=== PATIENT | male | born 1950 | race Caucasian/White ===

== ENCOUNTER 2017-07-16 03:43 | Inpatient (IN) | payer MEDICARE, BC ==
[~2017-07-16] VITALS: Ht 172.7 cm; Wt 116.1 kg
[2017-07-16] VITALS (8 sets, daily range): BP systolic 123–153; BP diastolic 73–95
[2017-07-16] MEDS ORDERED: ABILIFY10 MG ORAL (03:51)
[2017-07-16] MEDS ORDERED: ALBUTEROL2.5 MG/3 M INH (03:51)
[2017-07-16] MEDS ORDERED: RISPERDAL0.5 MG ORAL (03:51)
[2017-07-16] MEDS ORDERED: SINGULAIR10 MG ORAL (03:51)
[2017-07-16] MEDS ORDERED: LAMICTAL100 MG ORAL (03:51)
[2017-07-16] MEDS ORDERED: ALPRAZOLAM1 MG ORAL (03:51)
[2017-07-16] MEDS ORDERED: CYMBALTA60 MG ORAL (03:51)
--- NOTE | 2017-07-16 03:51 | Emergency Room Report ---
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 that yesterday the patient was coughing heavily And over the night he appeared to have worsening of his aspiration A note regarding fever patient appears to be somewhat bed bound Allergies: Coded Allergies: No Known Allergies (Unverified , 07/16/17) Patient History Past Medical History: see triage record Pertinent Family History: none Reviewed Nursing Documentation: PMH: Agreed, PSxH: Agreed Nursing Documentation-PMH Hx Asthma: Yes Review of Systems All Other Systems: negative except mentioned in HPI Physical Exam Vital Signs Date Time Temp Pulse Resp B/P (MAP) Pulse Ox O2 Delivery O2 Flow Rate FiO2 07/16/17 03:43 97.9 104 35 152/82 94 Room Air Sp02 EP Interpretation: reviewed, normal General Appearance: mild distress - Appears short of breath Head: normocephalic, atraumatic Eyes: bilateral eye PERRL, bilateral eye EOMI ENT: hearing grossly normal, normal pharynx, TMs + canals normal, uvula midline Neck: full range of motion, supple, no meningismus, no bony tend Respiratory: no retraction, no accessory muscle use, wheezing - Audible wheezes , rhonchi, patient appears mildly tachypneic I cannot appreciate obvious retractions Cardiovascular #1: no gallop, no JVD, no murmur, tachycardia Gastrointestinal: normal bowel sounds, non tender, soft, no mass, no organomegaly, non-distended, no guarding, no hernia, no pulsatile mass, no rebound Genitourinary: no CVA tenderness Musculoskeletal: other - No obvious focal deficit in the upper extremities Neurologic: oriented x3, responsive, 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, sensory intact Psychiatric: mood/affect normal Skin: warm/dry, palpation normal Lymphatic: normal inspection, no adenopathy Medical Decision Making Diagnostic Impression: Primary Impression: Respiratory distress Additional Impression: Dyspnea ER Course Patient is a fairly complex patient with multiple differential to consideration including but not limited to cardiac cardiopulmonary and vascular emergencies Patient's blood work and imaging did not reveal any obvious acute pathology However patient shows signs and symptoms of possible COPD Patient remains hypoxic on room air and requires further inpatient care Labs Test 07/16/17 03:58 07/16/17 04:40 07/16/17 06:30 07/18/17 06:45 White Blood Count 11.1 K/UL (4.8-10.8) 15.3 K/UL (4.8-10.8) Red Blood Count 4.76 M/UL (4.70-6.10) 4.16 M/UL (4.70-6.10) Hemoglobin 14.5 G/DL (14.2-18.0) 12.6 G/DL (14.2-18.0) Hematocrit 43.3 % (42.0-52.0) 38.3 % (42.0-52.0) Mean Corpuscular Volume 91 FL (80-99) 92 FL (80-99) Mean Corpuscular Hemoglobin 30.5 PG (27.0-31.0) 30.2 PG (27.0-31.0) Mean Corpuscular Hemoglobin Concent 33.4 G/DL (32.0-36.0) 32.8 G/DL (32.0-36.0) Red Cell Distribution Width 13.6 % (11.6-14.8) 14.1 % (11.6-14.8) Platelet Count 195 K/UL (150-450) 212 K/UL (150-450) Mean Platelet Volume 8.3 FL (6.5-10.1) 7.8 FL (6.5-10.1) Neutrophils (%) (Auto) 67.7 % (45.0-75.0) % (45.0-75.0) Lymphocytes (%) (Auto) 23.4 % (20.0-45.0) % (20.0-45.0) Monocytes (%) (Auto) 5.8 % (1.0-10.0) % (1.0-10.0) Eosinophils (%) (Auto) 2.4 % (0.0-3.0) % (0.0-3.0) Basophils (%) (Auto) 0.7 % (0.0-2.0) % (0.0-2.0) Sodium Level 141 MMOL/L (136-145) 141 MMOL/L (136-145) Potassium Level 4.3 MMOL/L (3.5-5.1) 4.7 MMOL/L (3.5-5.1) Chloride Level 103 MMOL/L (98-107) 104 MMOL/L (98-107) Carbon Dioxide Level 35 MMOL/L (21-32) 32 MMOL/L (21-32) Anion Gap 3 mmol/L (5-15) 5 mmol/L (5-15) Blood Urea Nitrogen 26 mg/dL (7-18) 27 mg/dL (7-18) Creatinine 1.5 MG/DL (0.55-1.30) 1.4 MG/DL (0.55-1.30) Estimat Glomerular Filtration Rate 46.8 mL/min (>60) 50.7 mL/min (>60) Glucose Level 138 MG/DL (74-106) 151 MG/DL (74-106) Lactic Acid Level 2.40 mmol/L (0.66-2.22) 2.70 mmol/L (0.66-2.22) Calcium Level 8.8 MG/DL (8.5-10.1) 8.4 MG/DL (8.5-10.1) Total Bilirubin 0.3 MG/DL (0.2-1.0) 0.2 MG/DL (0.2-1.0) Aspartate Amino Transf (AST/SGOT) 23 U/L (15-37) 23 U/L (15-37) Alanine Aminotransferase (ALT/SGPT) 63 U/L (12-78) 67 U/L (12-78) Alkaline Phosphatase 74 U/L (46-116) 60 U/L (46-116) Total Creatine Kinase 180 U/L (26-308) Creatine Kinase MB 2.8 NG/ML (0.0-3.6) Creatine Kinase MB Relative Index 1.5 Troponin I 0.000 ng/mL (0.000-0.056) Pro-B-Type Natriuretic Peptide 35 pg/mL (0-125) Total Protein 7.0 G/DL (6.4-8.2) 6.8 G/DL (6.4-8.2) Albumin 3.6 G/DL (3.4-5.0) 3.5 G/DL (3.4-5.0) Globulin 3.4 g/dL 3.3 g/dL Albumin/Globulin Ratio 1.1 (1.0-2.7) 1.1 (1.0-2.7) Lipase 172 U/L (73-393) Urine Color Pale yellow Urine Appearance Clear Urine pH 5 (4.5-8.0) Urine Specific [place] 1.020 (1.005-1.035) Urine Protein Negative (NEGATIVE) Urine Glucose (UA) Negative (NEGATIVE) Urine Ketones Negative (NEGATIVE) Urine Occult Blood 2+ (NEGATIVE) Urine Nitrite Negative (NEGATIVE) Urine Bilirubin Negative (NEGATIVE) Urine Urobilinogen Normal MG/DL (0.0-1.0) Urine Leukocyte Esterase 1+ (NEGATIVE) Urine RBC 15-20 /HPF (0 - 0) Urine WBC 0-2 /HPF (0 - 0) Urine Squamous Epithelial Cells Few /LPF (NONE/OCC) Urine Bacteria Few /HPF (NONE) Differential Total Cells Counted 100 Neutrophils % (Manual) 88 % (45-75) Lymphocytes % (Manual) 7 % (20-45) Monocytes % (Manual) 5 % (1-10) Eosinophils % (Manual) 0 % (0-3) Basophils % (Manual) 0 % (0-2) Band Neutrophils 0 % (0-8) Platelet Estimate Adequate Platelet Morphology Normal Red Blood Cell Morphology Normal Erythrocyte Sedimentation Rate 15 MM/HR (0-20) Phosphorus Level 4.1 MG/DL (2.5-4.9) Magnesium Level 2.4 MG/DL (1.8-2.4) Rhythm Strip Diag. Results EP Interpretation: yes Rate: 88 Rhythm: NSR, no PVC's, no ectopy Chest X-Ray Diagnostic Results Chest X-Ray Diagnostic Results : Chest X-Ray Ordered: Yes # of Views/Limited/Complete: 1 View Indication: Shortness of Breath Interpretation: no consolidation, no effusion, no pneumothorax, no acute cardiopulmonary disease Impression: No acute disease Electronically Signed by: Hansa Rodriguez DO Last Vital Signs Date Time Temp Pulse Resp B/P (MAP) Pulse Ox O2 Delivery O2 Flow Rate FiO2 07/16/17 03:43 97.9 104 35 152/82 94 Room Air Status: improved Disposition: ADMITTED INPATIENT Condition: Serious HANSA RODRIGUEZ D.O. Jul 16, 2017 03:51
[2017-07-16] MEDS ORDERED: Albuterol ud Inhalation HHN ONE (04:00)
[2017-07-16] MEDS ORDERED: Solu-MEDROL 125mg Inj IVP ONE (04:00)
[2017-07-16] MEDS ORDERED: Ipratropium 0.02% Inh Soln 2.5ml UD HHN ONE (04:00)
[2017-07-16] MEDS ORDERED: Sodium Chloride 500ML 500 ML IV ONE (04:00)
[2017-07-16 04:04] LABS: BASOPHILS % (AUTO) 0.7 % (0.0-2.0); EOSINOPHILS % (AUTO) 2.4 % (0.0-3.0); HEMATOCRIT 43.3 % (42.0-52.0); HEMOGLOBIN 14.5 G/DL (14.2-18.0); LYMPHOCYTES % (AUTO) 23.4 % (20.0-45.0); MEAN CORPUSCULAR VOLUME 91 FL (80-99); MONOCYTES % (AUTO) 5.8 % (1.0-10.0); NEUTROPHILS % (AUTO) 67.7 % (45.0-75.0); PLATELET COUNT 195 K/UL (150-450); RED BLOOD COUNT 4.76 M/UL (4.70-6.10); RED CELL DISTRIBUTION WIDTH 13.6 % (11.6-14.8); WHITE BLOOD COUNT 11.1 K/UL (4.8-10.8)
[2017-07-16 04:15] LABS: ANION GAP 3 mmol/L (5-15); BLOOD UREA NITROGEN 26 mg/dL (7-18); CALCIUM 8.8 MG/DL (8.5-10.1); CARBON DIOXIDE 35 MMOL/L (21-32); CHLORIDE 103 MMOL/L (98-107); CREATININE 1.5 MG/DL (0.55-1.30); POTASSIUM 4.3 MMOL/L (3.5-5.1); SODIUM 141 MMOL/L (136-145)
[2017-07-16 04:30] LABS: ALANINE AMINOTRANSFERASE 63 U/L (12-78); ALBUMIN 3.6 G/DL (3.4-5.0); ALBUMIN/GLOBULIN RATIO 1.1 (1.0-2.7); ALKALINE PHOSPHATASE 74 U/L (46-116); ASPARTATE AMINO TRANSFERASE 23 U/L (15-37); BILIRUBIN,TOTAL 0.3 MG/DL (0.2-1.0); CKMB 2.8 NG/ML (0.0-3.6); CREATINE KINASE 180 U/L (26-308)
[2017-07-16 05:18] LABS: APPEARANCE,URINE CLEAR; BILIRUBIN, URINE NEGATIVE (NEGATIVE); COLOR,URINE PALE YELLOW; GLUCOSE, URINE (UA) NEGATIVE (NEGATIVE); KETONES,URINE NEGATIVE (NEGATIVE); LEUKOCYTE ESTERASE ,URINE 1+ (NEGATIVE); NITRITE,URINE NEGATIVE (NEGATIVE); PH,URINE 5 (4.5-8.0); PROTEIN,URINE NEGATIVE (NEGATIVE); UROBILINOGEN,URINE NORMAL MG/DL (0.0-1.0)
[2017-07-16] MEDS ORDERED: Nitroglycerin Subl 0.4mg tab SL PRN (06:30)
[2017-07-16] MEDS ORDERED: Morphine Sulfate 2mg/ml Inj IVP PRN (06:30)
[2017-07-16] MEDS ORDERED: Promethazine/Codeine 5ml UD ORAL PRN (06:30)
[2017-07-16] MEDS ORDERED: LORazepam Inj 2mg/ml 1ml IV PRN (06:30)
[2017-07-16] MEDS ORDERED: Ketorolac 30mg Inj IV PRN (06:30)
[2017-07-16] MEDS: DULoxetine 30mg cap ORAL SCH (08:50)
[2017-07-16] MEDS: ARIPiprazole 10mg tab ORAL SCH (08:50)
[2017-07-16] MEDS: Theophylline ER 100mg ORAL SCH ×2 (08:50→21:10)
[2017-07-16] MEDS: Heparin 5000 units/ml inj SUBQ SCH ×2 (08:52→21:15)
[2017-07-16] MEDS: Solu-MEDROL 125mg Inj IV SCH ×2 (12:24→17:37)
[2017-07-16] MEDS: Piperacillin/Tazobactam 3.375 GM in D5W 55 ML IVPB SCH ×2 (13:53→22:30)
--- NOTE | 2017-07-16 14:58 | History and Physical ---
History of Present Illness General Date patient seen: Jul 16, 2017 Reason for Hospitalization: Dyspnea/Respdistress Present Illness HPI 67 year old male with hx of asthma, brain surgery, morbid obesity bed bound with recent hospitalization at [facility] presented to ER with complaints of shortness of breath. No reports of fever or chills. Pt has productive cough. His cxr was negative in ER. He is admitted for exacerbation of asthma. Allergies: Coded Allergies: No Known Allergies (Unverified , 07/16/17) Medication History Scheduled Alprazolam* (Xanax*), 1 MG ORAL BID, (Reported) Aripiprazole* (Abilify*), 10 MG ORAL DAILY, (Reported) Duloxetine Hcl* (Cymbalta*), 60 MG ORAL DAILY, (Reported) Lamotrigine* (Lamictal*), 100 MG ORAL BID, (Reported) Montelukast Sodium* (Singulair*), 10 MG ORAL DAILY, (Reported) Risperidone* (Risperdal*), 0.5 MG ORAL BEDTIME, (Reported) Scheduled PRN Albuterol Sulfate* (Albuterol Sulfate Hhn*), 3 ML INH THREE TIMES A DAY PRN for WHEEZING, (Reported) Patient History Healthcare decision maker Resuscitation status Full Code Advanced Directive on File No Past Medical/Surgical History Past Medical/Surgical History: (1) History of asthma (2) Morbid obesity Review of Systems Respiratory: Reports: shortness of breath, sputum Physical Exam General Appearance: WD/WN Lines, tubes and drains: peripheral HEENT: normocephalic, atraumatic Neck: non-tender, supple Respiratory/Chest: chest wall non-tender, normal breath sounds, decreased breath sounds Cardiovascular/Chest: normal peripheral pulses Abdomen: normal bowel sounds, non tender Genitourinary/Rectal: normal genital exam Extremities: normal range of motion Last 24 Hour Vital Signs Date Time Temp Pulse Resp B/P (MAP) Pulse Ox O2 Delivery O2 Flow Rate FiO2 07/16/17 12:00 97.8 98 18 135/74 90 Simple Mask 4.0 07/16/17 12:00 102 07/16/17 08:00 100 07/16/17 08:00 97.6 100 19 139/95 07/16/17 06:47 97.9 101 22 147/86 Simple Mask 07/16/17 06:33 97.9 96 30 143/82 99 Simple Mask 4.0 07/16/17 06:18 97.9 96 30 143/82 99 Simple Mask 4.0 07/16/17 05:21 97.9 99 31 147/78 97 Simple Mask 4.0 07/16/17 04:22 98 24 95 Room Air 07/16/17 04:09 96 30 Room Air 07/16/17 04:09 97.9 97 30 153/73 97 Simple Mask 6.0 07/16/17 04:00 97 20 94 Room Air 07/16/17 04:00 97 20 Room Air 07/16/17 03:43 97.9 104 35 152/82 94 Room Air Laboratory Tests Test 07/16/17 03:58 07/16/17 04:40 07/16/17 06:30 White Blood Count 11.1 K/UL (4.8-10.8) H Red Blood Count 4.76 M/UL (4.70-6.10) Hemoglobin 14.5 G/DL (14.2-18.0) Hematocrit 43.3 % (42.0-52.0) Mean Corpuscular Volume 91 FL (80-99) Mean Corpuscular Hemoglobin 30.5 PG (27.0-31.0) Mean Corpuscular Hemoglobin Concent 33.4 G/DL (32.0-36.0) Red Cell Distribution Width 13.6 % (11.6-14.8) Platelet Count 195 K/UL (150-450) Mean Platelet Volume 8.3 FL (6.5-10.1) Neutrophils (%) (Auto) 67.7 % (45.0-75.0) Lymphocytes (%) (Auto) 23.4 % (20.0-45.0) Monocytes (%) (Auto) 5.8 % (1.0-10.0) Eosinophils (%) (Auto) 2.4 % (0.0-3.0) Basophils (%) (Auto) 0.7 % (0.0-2.0) Sodium Level 141 MMOL/L (136-145) Potassium Level 4.3 MMOL/L (3.5-5.1) Chloride Level 103 MMOL/L (98-107) Carbon Dioxide Level 35 MMOL/L (21-32) H Anion Gap 3 mmol/L (5-15) L Blood Urea Nitrogen 26 mg/dL (7-18) H Creatinine 1.5 MG/DL (0.55-1.30) H Estimat Glomerular Filtration Rate 46.8 mL/min (>60) Glucose Level 138 MG/DL (74-106) H Lactic Acid Level 2.40 mmol/L (0.66-2.22) H 2.70 mmol/L (0.66-2.22) H Calcium Level 8.8 MG/DL (8.5-10.1) Total Bilirubin 0.3 MG/DL (0.2-1.0) Aspartate Amino Transf (AST/SGOT) 23 U/L (15-37) Alanine Aminotransferase (ALT/SGPT) 63 U/L (12-78) Alkaline Phosphatase 74 U/L (46-116) Total Creatine Kinase 180 U/L (26-308) Creatine Kinase MB 2.8 NG/ML (0.0-3.6) Creatine Kinase MB Relative Index 1.5 Troponin I 0.000 ng/mL (0.000-0.056) Pro-B-Type Natriuretic Peptide 35 pg/mL (0-125) Total Protein 7.0 G/DL (6.4-8.2) Albumin 3.6 G/DL (3.4-5.0) Globulin 3.4 g/dL Albumin/Globulin Ratio 1.1 (1.0-2.7) Lipase 172 U/L (73-393) Urine Color Pale yellow Urine Appearance Clear Urine pH 5 (4.5-8.0) Urine Specific [place] 1.020 (1.005-1.035) Urine Protein Negative (NEGATIVE) Urine Glucose (UA) Negative (NEGATIVE) Urine Ketones Negative (NEGATIVE) Urine Occult Blood 2+ (NEGATIVE) H Urine Nitrite Negative (NEGATIVE) Urine Bilirubin Negative (NEGATIVE) Urine Urobilinogen Normal MG/DL (0.0-1.0) Urine Leukocyte Esterase 1+ (NEGATIVE) H Urine RBC 15-20 /HPF (0 - 0) H Urine WBC 0-2 /HPF (0 - 0) Urine Squamous Epithelial Cells Few /LPF (NONE/OCC) Urine Bacteria Few /HPF (NONE) Microbiology Date/Time Source Procedure Growth Status 07/16/17 08:58 Sputum Gram Stain - Final Resulted 07/16/17 08:58 Sputum Sputum Culture Pending Resulted Height (Feet): 5 Height (Inches): 8.00 Weight (Pounds): 256 Medications Current Medications Medications (Trade) Dose Ordered Sig/Hi Route PRN Reason Start Time Stop Time Status Last Admin Dose Admin Albuterol/ Ipratropium (Albuterol/ Ipratropium) 3 ml EVERY 4 HOURS PRN HHN dyspnea 07/16/17 06:30 07/21/17 06:29 Aripiprazole (Abilify) 10 mg DAILY ORAL 07/16/17 09:00 08/15/17 08:59 07/16/17 08:50 Dextrose (Dextrose 50%) STAT PRN IV Hypoglycemia 07/16/17 06:30 08/15/17 06:29 Duloxetine HCl (Cymbalta) 60 mg DAILY ORAL 07/16/17 09:00 08/15/17 08:59 07/16/17 08:50 Heparin Sodium (Porcine) (Heparin 5000 units/ml) 5,000 units EVERY 12 HOURS SUBQ 07/16/17 09:00 08/15/17 08:59 07/16/17 08:52 Ketorolac Tromethamine (Toradol 30mg) 30 mg EVERY 8 HOURS PRN IV moderate pain 4-6 07/16/17 06:30 07/21/17 06:29 Lamotrigine (LaMICtal) 100 mg BID ORAL 07/16/17 09:00 08/15/17 08:59 07/16/17 08:50 Lorazepam (Ativan 2mg/ml 1ml) 0.5 mg Q4H PRN IV For Anxiety 07/16/17 06:30 07/23/17 06:29 Methylprednisolone Sodium Succinate (Solu-MEDROL) 60 mg EVERY 6 HOURS IV 07/16/17 12:00 08/15/17 11:59 07/16/17 12:24 Morphine Sulfate (Morphine Sulfate) 2 mg EVERY 4 HOURS PRN IVP severe pain 7-10 07/16/17 06:30 07/23/17 06:29 Nitroglycerin (Ntg) 0.4 mg Q5M X 3 DOSES PRN SL Prn Chest Pain 07/16/17 06:30 08/15/17 06:29 Ondansetron HCl (Zofran) 4 mg Q6H PRN IVP Nausea & Vomiting 07/16/17 06:30 1/11/18 06:29 Piperacillin Sod/ Tazobactam Sod 3.375 gm/Dextrose 55 ml @ 13.75 mls/ hr EVERY 8 HOURS IVPB 07/16/17 14:00 07/21/17 13:59 07/16/17 13:53 Promethazine HCl/ Codeine (Phenergan with Codeine) 5 ml EVERY 6 HOURS PRN ORAL cough 07/16/17 06:30 08/15/17 06:29 Risperidone (RisperDAL) 0.5 mg BEDTIME ORAL 07/16/17 21:00 08/15/17 20:59 Temazepam (Restoril) 15 mg HSPRN PRN ORAL Insomnia 07/16/17 06:30 07/23/17 06:29 Theophylline (Maik-Dur) 100 mg EVERY 12 HOURS ORAL 07/16/17 09:00 08/15/17 08:59 07/16/17 08:50 Assessment/Plan Problem List: (1) Acute asthma exacerbation ICD Codes: J45.901 - Unspecified asthma with (acute) exacerbation SNOMED: 445195464 (2) History of craniotomy ICD Codes: Z98.890 - Other specified postprocedural states SNOMED: 20959061, 815522279 (3) Morbid obesity ICD Codes: E66.01 - Morbid (severe) obesity due to excess calories SNOMED: 049451386, [id number] Assessment/Plan IV steroids respiratory treatment check sputum titrate fio2 renal w/u neuro evaluation АНДРЕЙ RUIZ Jul 16, 2017 14:58
--- NOTE | 2017-07-16 16:56 | Consultation ---
Consult Note Consult Note [id number] ELZA ROJAS M.D. Jul 16, 2017 16:56
[2017-07-16] MEDS: Albuterol/Ipratropium 3ml neb HHN PRN (17:13)
[2017-07-16] MEDS: Azithromycin 500 MG in D5W 275 ML IV SCH (17:37)
[2017-07-17] VITALS: BP 146/94
[2017-07-17] MEDS: Solu-MEDROL 125mg Inj IV SCH ×4 (00:12→18:25)
[2017-07-17] MEDS: Albuterol/Ipratropium 3ml neb HHN PRN ×2 (00:20→13:45)
[2017-07-17 04:00] VITALS: BP 131/80
--- NOTE | 2017-07-17 05:15 | Consultation ---
DATE OF CONSULTATION: 07/16/2017 NEUROLOGICAL CONSULTATION CONSULTING PHYSICIAN: Tyree Mendiola M.D. REQUESTING PHYSICIAN: Cuate Walker M.D. HISTORY OF PRESENT ILLNESS: This is a 67-year-old gentleman seen in neurological consultation to evaluate progressive gait abnormality, urinary incontinence, recently diagnosed with a "hydrocephalus." The patient has now presented with shortness of breath, apparently only recently he had assessment at [facility] for asthma and reactive airway disease. He developed shortness of breath, but also heavy coughing and difficulty breathing. His admission vital signs included blood pressure 152/82 and temperature 97.9. His lab work included normal CBC study with WBC of 11.4. Chemistry panel was abnormal with BUN of 26, creatinine 1.5, and glucose 138, but elevated lactic acid of 2.40. Normal troponin. Following admission until present, there was no paroxysmal event noted. PAST MEDICAL HISTORY: The patient has a history of morbid obesity, history of psychiatric disorder, history of COPD, and decreased hearing mostly on the left. MEDICATIONS: The patient's treatment prior to admission included Xanax, Abilify, Cymbalta, Lamictal, Singulair, Risperdal, and albuterol as necessary. SOCIAL HISTORY: He lives alone. He is a retired businessman. No alcohol. No drug abuse. FAMILY HISTORY: Noncontributory. REVIEW OF SYMPTOMS: Increasing difficulty ambulation, frequent falls now using a cane, episodes of urinary incontinence, but no memory issues. Recently seen by a neurologist at [facility] and was diagnosed with what seems normal pressure hydrocephalus and "surgery was offered." PHYSICAL EXAMINATION: GENERAL: The patient is morbidly obese. VITAL SIGNS: Blood pressure 132/80 and respirations 18. HEENT: Head, normocephalic. There is no evidence of trauma. Eyes, ears, and throat are clear. NECK: Supple. No meningeal signs. MUSCULOSKELETAL: Unremarkable. There is no deformities. Peripheral pulses 1+ symmetric. MENTAL STATUS: The patient is alert and oriented x3. His speech is fluent. Language is intact. There is no aphasia. No apraxia. Cognitive function is normal. CRANIAL NERVE II: Pupils both responding to light and accommodation. Extraocular movements full range. CRANIAL NERVE V: Normal corneal responses. CRANIAL NERVE VII: No facial asymmetry. CRANIAL NERVE VIII: Normal hearing. CRANIAL NERVES IX THROUGH XII: Within normal limits. MOTOR EXAMINATION: Normal muscle tone. Strength 5/5 in all extremities. No involuntary movement. Deep tendon reflexes 1+ symmetric with downgoing toes on both sides. SENSORY EXAMINATION: Normal to pinprick and light touch. Gait not tested, but reported unsteady gait. IMPRESSION: 1. Probably normal pressure hydrocephalus. 2. Chronic psychiatric disorder. 3. Morbid obesity, rule out obstructive sleep apnea. 4. Bronchial asthma. RECOMMENDATIONS: Review previous records from [facility], the patient is in the process of seeing Neurosurgery for probable ventriculoperitoneal shunting. Sleep disorder should be strongly suspected and sleep studies would be helpful. The patient is on multiple psychiatric treatments, which may need adjustment. The patient to be seen by psychiatry for psychiatry followup. The patient to continue with respiratory support. Thank you for allowing me to see this interesting patient in neurological consultation. Tyree Mendiola M.D. DR: TY JOB#: [id number] CC:
--- NOTE | 2017-07-17 05:15 | Consultation ---
DATE OF CONSULTATION: 07/16/2017 INFECTIOUS DISEASES CONSULTATION CONSULTING PHYSICIAN: Minor Cool M.D. REQUESTING PHYSICIAN: Cuate Walker M.D. REASON FOR CONSULTATION: Evaluation of the patient for pneumonia and antibiotic management. HISTORY OF PRESENT ILLNESS: The patient is a 67-year-old male with multiple medical problems including history of asthma and reactive airway disease, who was admitted to this medical center due to shortness of breath and cough that started three days ago. The patient has also been complaining of nasal congestion recently. The patient was admitted with the impression of pneumonia and asthma exacerbation. Infectious Diseases consultation has been requested for further evaluation of the patient and antibiotic management. PAST MEDICAL HISTORY: 1. Asthma. 2. Bipolar disorder. 3. Depression. MEDICATIONS: Zosyn and Solu-Medrol. The patient received one dose of Levaquin. ALLERGIES: No known drug allergies. SOCIAL HISTORY: No history of smoking. FAMILY HISTORY: Noncontributory. REVIEW OF SYSTEMS: HEENT: No recent change in vision or hearing. PULMONARY: As mentioned above. CARDIOVASCULAR: No chest pain or palpitations. GASTROINTESTINAL/ABDOMEN: No nausea or vomiting. GENITOURINARY: No dysuria. PHYSICAL EXAMINATION: VITAL SIGNS: Temperature 97.8, blood pressure 134/74, pulse 86, and respiratory rate 18. HEENT: No pale conjunctivae. No icterus. NECK: No lymphadenopathy. CHEST: Mild wheezes and lungs. HEART: S1 and S2. ABDOMEN: Soft and nontender. EXTREMITIES: No cyanosis. NEUROLOGIC: Awake. LABORATORY AND DIAGNOSTIC DATA: White blood cells 11.1, hemoglobin 14, and platelets 195,000. UA shows 15 to 20 red blood cells and 0 to 2 white blood cells. BUN 26 and creatinine 1.5. Chest x-ray is pending. ASSESSMENT: The patient is a 67-year-old male with: 1. Asthma exacerbation. 2. Possible pneumonia. 3. Viral upper respiratory tract infection, rule out influenza. PLAN: 1. We will continue the patient on Zosyn, add Zithromax. 2. We will continue the patient on Solu-Medrol. 3. Rapid influenza test. 4. Blood culture. 5. Sputum culture. 6. Monitor chest x-ray. 7. Monitor CBC. 8. Based on the patient's clinical course and labs, we will do further recommendations. Thank you, Dr. Walker, for allowing me to participate in the care of this patient. I will follow the patient with you during this hospitalization. Minor Cool M.D. DR: YAZMIN JOB#: [id number] CC:
[2017-07-17] MEDS: Piperacillin/Tazobactam 3.375 GM in D5W 55 ML IVPB SCH ×3 (05:54→21:56)
[2017-07-17 08:00] VITALS: BP 135/75
[2017-07-17] MEDS: ARIPiprazole 10mg tab ORAL SCH (08:18)
[2017-07-17] MEDS: DULoxetine 30mg cap ORAL SCH (08:18)
[2017-07-17] MEDS: Theophylline ER 100mg ORAL SCH ×2 (08:18→21:55)
[2017-07-17] MEDS: Heparin 5000 units/ml inj SUBQ SCH ×2 (08:19→21:56)
--- NOTE | 2017-07-17 10:07 | Infectious Diseases Prog Note ---
Assessment/Plan Assessment/Plan ASSESSMENT: The patient is a 67-year-old male with: Asthma exacerbation Possible pneumonia. Viral upper respiratory tract infection, Rapid influenza test: Neg Asthma. Bipolar disorder. Depression. PLAN: continue the patient on Zosyn, add Zithromax d# 2 on Solu-Medrol Blood culture. Sputum culture. Monitor chest x-ray. Monitor CBC. Subjective Allergies: Coded Allergies: No Known Allergies (Unverified , 07/16/17) Subjective Afebrile Objective Vital Signs Last 24 Hour Vital Signs Date Time Temp Pulse Resp B/P (MAP) Pulse Ox O2 Delivery O2 Flow Rate FiO2 07/17/17 08:07 92 Nasal Cannula 3.0 32 07/17/17 08:06 Nasal Cannula 3.0 32 07/17/17 08:00 96.4 69 19 135/75 Room Air 07/17/17 08:00 96 Nasal Cannula 2.0 07/17/17 04:00 97.0 90 20 131/80 97 Simple Mask 07/17/17 04:00 88 07/17/17 00:32 97 24 97 Simple Mask 4.0 36 07/17/17 00:20 84 25 93 Simple Mask 4.0 36 07/17/17 00:00 97.9 89 22 146/94 96 Simple Mask 4.0 07/17/17 00:00 90 07/16/17 20:00 97.0 103 20 123/74 97 Simple Mask 4.0 07/16/17 20:00 97 07/16/17 17:23 99 22 96 Simple Mask 4.0 36 07/16/17 17:18 98 24 Simple Mask 4.0 36 07/16/17 17:16 98 24 95 Simple Mask 4.0 36 07/16/17 16:00 100 07/16/17 16:00 97.6 80 19 139/87 Simple Mask 4.0 07/16/17 12:00 97.8 98 18 135/74 90 Simple Mask 4.0 07/16/17 12:00 102 Height (Feet): 5 Height (Inches): 8.00 Weight (Pounds): 256 Respiratory/Chest: normal breath sounds Cardiovascular: regular rhythm, regularly irregular Abdomen: non distended Microbiology Date/Time Source Procedure Growth Status 07/16/17 17:05 Nasopharynx Influenza Types A,B Antigen (PIERRE) - Final Complete 07/16/17 08:58 Sputum Gram Stain - Final Resulted 07/16/17 08:58 Sputum Sputum Culture Pending Resulted Current Medications Medications (Trade) Dose Ordered Sig/Hi Route PRN Reason Start Time Stop Time Status Last Admin Dose Admin Albuterol/ Ipratropium (Albuterol/ Ipratropium) 3 ml EVERY 4 HOURS PRN HHN dyspnea 07/16/17 06:30 07/21/17 06:29 07/17/17 00:20 Aripiprazole (Abilify) 10 mg DAILY ORAL 07/16/17 09:00 08/15/17 08:59 07/17/17 08:18 Azithromycin 500 mg/Dextrose 275 ml @ 275 mls/hr Q24HRS IV 07/16/17 18:00 07/22/17 18:59 07/16/17 17:37 Dextrose (Dextrose 50%) STAT PRN IV Hypoglycemia 07/16/17 06:30 08/15/17 06:29 Duloxetine HCl (Cymbalta) 60 mg DAILY ORAL 07/16/17 09:00 08/15/17 08:59 07/17/17 08:18 Heparin Sodium (Porcine) (Heparin 5000 units/ml) 5,000 units EVERY 12 HOURS SUBQ 07/16/17 09:00 08/15/17 08:59 07/17/17 08:19 Ketorolac Tromethamine (Toradol 30mg) 30 mg EVERY 8 HOURS PRN IV moderate pain 4-6 07/16/17 06:30 07/21/17 06:29 Lamotrigine (LaMICtal) 100 mg BID ORAL 07/16/17 09:00 08/15/17 08:59 07/17/17 08:18 Lorazepam (Ativan 2mg/ml 1ml) 0.5 mg Q4H PRN IV For Anxiety 07/16/17 06:30 07/23/17 06:29 Methylprednisolone Sodium Succinate (Solu-MEDROL) 60 mg EVERY 6 HOURS IV 07/16/17 12:00 08/15/17 11:59 07/17/17 05:54 Morphine Sulfate (Morphine Sulfate) 2 mg EVERY 4 HOURS PRN IVP severe pain 7-10 07/16/17 06:30 07/23/17 06:29 Nitroglycerin (Ntg) 0.4 mg Q5M X 3 DOSES PRN SL Prn Chest Pain 07/16/17 06:30 08/15/17 06:29 Ondansetron HCl (Zofran) 4 mg Q6H PRN IVP Nausea & Vomiting 07/16/17 06:30 08/15/17 06:29 Piperacillin Sod/ Tazobactam Sod 3.375 gm/Dextrose 55 ml @ 13.75 mls/ hr EVERY 8 HOURS IVPB 07/16/17 14:00 07/21/17 13:59 07/17/17 05:54 Promethazine HCl/ Codeine (Phenergan with Codeine) 5 ml EVERY 6 HOURS PRN ORAL cough 07/16/17 06:30 08/15/17 06:29 Risperidone (RisperDAL) 0.5 mg BEDTIME ORAL 07/16/17 21:00 08/15/17 20:59 07/16/17 21:10 Temazepam (Restoril) 15 mg HSPRN PRN ORAL Insomnia 07/16/17 06:30 07/23/17 06:29 Theophylline (Maik-Dur) 100 mg EVERY 12 HOURS ORAL 07/16/17 09:00 08/15/17 08:59 07/17/17 08:18 ELZA ROJAS M.D. Jul 17, 2017 10:07
[2017-07-17 12:00] VITALS: BP 130/80
--- NOTE | 2017-07-17 13:47 | Pulmonology Progress Note ---
Assessment/Plan Problems: (1) Acute asthma exacerbation (2) History of craniotomy (3) Morbid obesity Assessment/Plan respiratory treatment prn check sputum taper steroids when less sob dvt prophylaxis. Subjective Interval Events: still episodes of short of breath Constitutional: Reports: no symptoms HEENT: Repors: no symptoms Respiratory: Reports: no symptoms Allergies: Coded Allergies: No Known Allergies (Unverified , 07/16/17) Objective Last 24 Hour Vital Signs Date Time Temp Pulse Resp B/P (MAP) Pulse Ox O2 Delivery O2 Flow Rate FiO2 07/17/17 12:00 97.8 80 19 130/80 Nasal Cannula 3.0 07/17/17 11:30 87 Room Air 07/17/17 08:07 92 Nasal Cannula 3.0 32 07/17/17 08:06 Nasal Cannula 3.0 32 07/17/17 08:00 101 07/17/17 08:00 96.4 69 19 135/75 Room Air 07/17/17 08:00 96 Nasal Cannula 2.0 07/17/17 04:00 97.0 90 20 131/80 97 Simple Mask 07/17/17 04:00 88 07/17/17 00:32 97 24 97 Simple Mask 4.0 36 07/17/17 00:20 84 25 93 Simple Mask 4.0 36 07/17/17 00:00 97.9 89 22 146/94 96 Simple Mask 4.0 07/17/17 00:00 90 07/16/17 20:00 97.0 103 20 123/74 97 Simple Mask 4.0 07/16/17 20:00 97 07/16/17 17:23 99 22 96 Simple Mask 4.0 36 07/16/17 17:18 98 24 Simple Mask 4.0 36 07/16/17 17:16 98 24 95 Simple Mask 4.0 36 07/16/17 16:00 100 07/16/17 16:00 97.6 80 19 139/87 Simple Mask 4.0 General Appearance: WD/WN HEENT: normocephalic, atraumatic Respiratory/Chest: chest wall non-tender, lungs clear, normal breath sounds Cardiovascular: normal peripheral pulses, normal rate Abdomen: normal bowel sounds, soft, non tender Genitourinary: normal external genitalia Skin: no rash Neurologic/Psychiatric: tree doctor II-XII grossly normal Microbiology Date/Time Source Procedure Growth Status 07/16/17 17:05 Nasopharynx Influenza Types A,B Antigen (PIERRE) - Final Complete 07/16/17 08:58 Sputum Gram Stain - Final Resulted 07/16/17 08:58 Sputum Sputum Culture Pending Resulted Current Medications Medications (Trade) Dose Ordered Sig/Hi Route PRN Reason Start Time Stop Time Status Last Admin Dose Admin Albuterol/ Ipratropium (Albuterol/ Ipratropium) 3 ml Q4H PRN HHN Shortness of Breath 07/17/17 13:45 07/22/17 13:44 Aripiprazole (Abilify) 10 mg DAILY ORAL 07/16/17 09:00 08/15/17 08:59 07/17/17 08:18 Azithromycin 500 mg/Dextrose 275 ml @ 275 mls/hr Q24HRS IV 07/16/17 18:00 07/22/17 18:59 07/16/17 17:37 Dextrose (Dextrose 50%) STAT PRN IV Hypoglycemia 07/16/17 06:30 08/15/17 06:29 Duloxetine HCl (Cymbalta) 60 mg DAILY ORAL 07/16/17 09:00 08/15/17 08:59 07/17/17 08:18 Heparin Sodium (Porcine) (Heparin 5000 units/ml) 5,000 units EVERY 12 HOURS SUBQ 07/16/17 09:00 08/15/17 08:59 07/17/17 08:19 Ketorolac Tromethamine (Toradol 30mg) 30 mg EVERY 8 HOURS PRN IV moderate pain 4-6 07/16/17 06:30 07/21/17 06:29 Lamotrigine (LaMICtal) 100 mg BID ORAL 07/16/17 09:00 08/15/17 08:59 07/17/17 08:18 Lorazepam (Ativan 2mg/ml 1ml) 0.5 mg Q4H PRN IV For Anxiety 07/16/17 06:30 07/23/17 06:29 Methylprednisolone Sodium Succinate (Solu-MEDROL) 60 mg EVERY 6 HOURS IV 07/16/17 12:00 08/15/17 11:59 07/17/17 13:02 Morphine Sulfate (Morphine Sulfate) 2 mg EVERY 4 HOURS PRN IVP severe pain 7-10 07/16/17 06:30 07/23/17 06:29 Nitroglycerin (Ntg) 0.4 mg Q5M X 3 DOSES PRN SL Prn Chest Pain 07/16/17 06:30 08/15/17 06:29 Ondansetron HCl (Zofran) 4 mg Q6H PRN IVP Nausea & Vomiting 07/16/17 06:30 08/15/17 06:29 Piperacillin Sod/ Tazobactam Sod 3.375 gm/Dextrose 55 ml @ 13.75 mls/ hr EVERY 8 HOURS IVPB 07/16/17 14:00 07/21/17 13:59 07/17/17 13:02 Promethazine HCl/ Codeine (Phenergan with Codeine) 5 ml EVERY 6 HOURS PRN ORAL cough 07/16/17 06:30 08/15/17 06:29 Risperidone (RisperDAL) 0.5 mg BEDTIME ORAL 07/16/17 21:00 08/15/17 20:59 07/16/17 21:10 Temazepam (Restoril) 15 mg HSPRN PRN ORAL Insomnia 07/16/17 06:30 07/23/17 06:29 Theophylline (Maik-Dur) 100 mg EVERY 12 HOURS ORAL 07/16/17 09:00 08/15/17 08:59 07/17/17 08:18 АНДРЕЙ RUIZ Jul 17, 2017 13:47
[2017-07-17 16:00] VITALS: BP 138/68
--- NOTE | 2017-07-17 17:14 | Consultation ---
History of Present Illness General Date patient seen: Jul 17, 2017 Time patient seen: 17:12 Chief Complaint: Dyspnea/Respdistress Referring physician: Dr. Knott (PCP) and Dr. Walker Reason for Consultation: med mgmt Present Illness HPI 69y/o male with pmh of NPH, severe KAYLEE, morbid obesity, asthma who presents with SOB. Pt recently hospitalized at [facility] for worsening LE weakness. He was evaluated by neurology. MRI brain demonstrated ventriculomegaly which appeared~ similar compared to previous examination. 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 MRIs of L,T,C spine were negative for any cord compression. LP was done on 07/04/17 and it revealed an opening pressure of 290mm H2O. Post LP, the pt's condition improved and neurosurgery was consulted and the decision was taken to insert a COOK CANDY shunt in a few weeks. Following discharge, pt states he did well initially but then developed recurrent SOB w/ cough productive of sputum. He has been admitted for asthma exacerbation. He has been receiving steroids, antibiotics and nebulizers with some improvement. He requests transfer to [facility] or discharge soon. Allergies: Coded Allergies: No Known Allergies (Unverified , 07/16/17) Medication History Scheduled Alprazolam* (Xanax*), 1 MG ORAL BID, (Reported) Aripiprazole* (Abilify*), 10 MG ORAL DAILY, (Reported) Duloxetine Hcl* (Cymbalta*), 60 MG ORAL DAILY, (Reported) Lamotrigine* (Lamictal*), 100 MG ORAL BID, (Reported) Montelukast Sodium* (Singulair*), 10 MG ORAL DAILY, (Reported) Risperidone* (Risperdal*), 0.5 MG ORAL BEDTIME, (Reported) Scheduled PRN Albuterol Sulfate* (Albuterol Sulfate Hhn*), 3 ML INH THREE TIMES A DAY PRN for WHEEZING, (Reported) Patient History History Provided By: Patient, Medical Record, Caregiver, PMD Healthcare decision maker Resuscitation status Full Code Advanced Directive on File No Past Medical/Surgical History Past Medical/Surgical History: (1) NPH (normal pressure hydrocephalus) (2) Asthma (3) Anxiety (4) Morbid obesity (5) severe KAYLEE (6) Bipolar disorder (7) Depression Family History Family History: (1) No significant family history Social History Social History: (1) lives at home with caregiver Review of Systems Constitutional: Reports: malaise Eye: Reports: no symptoms ENT: Reports: no symptoms Respiratory: Reports: shortness of breath, wheezing Cardiovascular: Reports: no symptoms Gastrointestinal: Reports: no symptoms Genitourinary: Reports: no symptoms Musculoskeletal: Reports: no symptoms Skin: Reports: no symptoms Psychiatric: Reports: anxiety Neurological: Reports: no symptoms Endocrine: Reports: no symptoms Hematologic/Lymphatic: Reports: no symptoms Physical Exam Physical Exam Narrative General: alert, cooperative, no distress, appears stated age, obese Head: normocephalic, without obvious abnormality, atraumatic Eyes: conjunctivae/corneas clear. PERRL, EOM's intact Throat: lips, mucosa, and tongue normal. MMM Neck: supple, symmetrical, trachea midline, and no JVD Lungs: +wheezing and rhonchi b/l Heart: regular rate and rhythm, S1, S2 normal, no murmur, click, rub or gallop Abdomen: soft, non-tender, non-distended, bowel sounds normal; no masses or organomegaly Extremities: extremities normal, atraumatic, no cyanosis, trace BLE edema Pulses: 2+ and symmetric Skin: skin color, texture, turgor normal; no rashes or lesions Neurologic: grossly normal, no focal deficits Last 24 Hour Vital Signs Date Time Temp Pulse Resp B/P (MAP) Pulse Ox O2 Delivery O2 Flow Rate FiO2 07/17/17 13:53 101 24 96 Nasal Cannula 3.0 32 07/17/17 13:42 94 24 94 Nasal Cannula 3.0 32 07/17/17 12:00 97.8 80 19 130/80 Nasal Cannula 3.0 07/17/17 11:30 87 Room Air 07/17/17 08:07 92 Nasal Cannula 3.0 32 07/17/17 08:06 Nasal Cannula 3.0 32 07/17/17 08:00 101 07/17/17 08:00 96.4 69 19 135/75 Room Air 07/17/17 08:00 96 Nasal Cannula 2.0 07/17/17 04:00 97.0 90 20 131/80 97 Simple Mask 07/17/17 04:00 88 07/17/17 00:32 97 24 97 Simple Mask 4.0 36 07/17/17 00:20 84 25 93 Simple Mask 4.0 36 07/17/17 00:00 97.9 89 22 146/94 96 Simple Mask 4.0 07/17/17 00:00 90 07/16/17 20:00 97.0 103 20 123/74 97 Simple Mask 4.0 07/16/17 20:00 97 07/16/17 17:23 99 22 96 Simple Mask 4.0 36 07/16/17 17:18 98 24 Simple Mask 4.0 36 07/16/17 17:16 98 24 95 Simple Mask 4.0 36 Height (Feet): 5 Height (Inches): 8.00 Weight (Pounds): 256 Medications Current Medications Medications (Trade) Dose Ordered Sig/Hi Route PRN Reason Start Time Stop Time Status Last Admin Dose Admin Albuterol/ Ipratropium (Albuterol/ Ipratropium) 3 ml Q4H PRN HHN Shortness of Breath 07/17/17 13:45 07/22/17 13:44 07/17/17 13:45 Aripiprazole (Abilify) 10 mg DAILY ORAL 07/16/17 09:00 08/15/17 08:59 07/17/17 08:18 Azithromycin 500 mg/Dextrose 275 ml @ 275 mls/hr Q24HRS IV 07/16/17 18:00 07/22/17 18:59 07/16/17 17:37 Dextrose (Dextrose 50%) STAT PRN IV Hypoglycemia 07/16/17 06:30 08/15/17 06:29 Duloxetine HCl (Cymbalta) 60 mg DAILY ORAL 07/16/17 09:00 08/15/17 08:59 07/17/17 08:18 Heparin Sodium (Porcine) (Heparin 5000 units/ml) 5,000 units EVERY 12 HOURS SUBQ 07/16/17 09:00 08/15/17 08:59 07/17/17 08:19 Ketorolac Tromethamine (Toradol 30mg) 30 mg EVERY 8 HOURS PRN IV moderate pain 4-6 07/16/17 06:30 07/21/17 06:29 Lamotrigine (LaMICtal) 100 mg BID ORAL 07/16/17 09:00 1/11/18 08:59 07/17/17 08:18 Lorazepam (Ativan 2mg/ml 1ml) 0.5 mg Q4H PRN IV For Anxiety 07/16/17 06:30 07/23/17 06:29 Methylprednisolone Sodium Succinate (Solu-MEDROL) 60 mg EVERY 6 HOURS IV 07/16/17 12:00 08/15/17 11:59 07/17/17 13:02 Morphine Sulfate (Morphine Sulfate) 2 mg EVERY 4 HOURS PRN IVP severe pain 7-10 07/16/17 06:30 07/23/17 06:29 Nitroglycerin (Ntg) 0.4 mg Q5M X 3 DOSES PRN SL Prn Chest Pain 07/16/17 06:30 08/15/17 06:29 Ondansetron HCl (Zofran) 4 mg Q6H PRN IVP Nausea & Vomiting 07/16/17 06:30 08/15/17 06:29 Piperacillin Sod/ Tazobactam Sod 3.375 gm/Dextrose 55 ml @ 13.75 mls/ hr EVERY 8 HOURS IVPB 07/16/17 14:00 07/21/17 13:59 07/17/17 13:02 Promethazine HCl/ Codeine (Phenergan with Codeine) 5 ml EVERY 6 HOURS PRN ORAL cough 07/16/17 06:30 08/15/17 06:29 Risperidone (RisperDAL) 0.5 mg BEDTIME ORAL 07/16/17 21:00 08/15/17 20:59 07/16/17 21:10 Temazepam (Restoril) 15 mg HSPRN PRN ORAL Insomnia 07/16/17 06:30 07/23/17 06:29 Theophylline (Maik-Dur) 100 mg EVERY 12 HOURS ORAL 07/16/17 09:00 08/15/17 08:59 07/17/17 08:18 Assessment/Plan Problem List: (1) Acute respiratory failure with hypoxia ICD Codes: J96.01 - Acute respiratory failure with hypoxia SNOMED: 94518751, 657470218 (2) Acute asthma exacerbation ICD Codes: J45.901 - Unspecified asthma with (acute) exacerbation SNOMED: 742055217 (3) Morbid obesity ICD Codes: E66.01 - Morbid (severe) obesity due to excess calories SNOMED: 554793919, 42672302481813 (4) NPH (normal pressure hydrocephalus) ICD Codes: G91.2 - (Idiopathic) normal pressure hydrocephalus SNOMED: 86383309 (5) Anxiety ICD Codes: F41.9 - Anxiety disorder, unspecified SNOMED: 56108270 (6) severe KAYLEE (7) Bipolar disorder ICD Codes: F31.9 - Bipolar disorder, unspecified SNOMED: 37151037 (8) Depression ICD Codes: F32.9 - Major depressive disorder, single episode, unspecified SNOMED: 34378717 Status: stable Assessment/Plan Appreciate pulmonary, ID, psych, neuro rec's Cont abx per ID: [email or web address] + [email or web address] Cont steroids per pulm Cont nebs ATC and PRN Cont O2 and wean off as tolerated Cont CPAP at [id number] Cont home meds Possible transfer to [facility] per PCP request vs d/c home in 1-2 days pending further improvement DVT Prophylaxis: SCD, HSQ Code Status: Full Hospital Classification Declaration: Based on this initial evaluation, and depending on the patient's clinical course, I anticipate that this patient will require hospitalization for 1-2 days for acute asthma exacerbation and close respiratory/hemodynamic monitoring. Disposition: Once the patient is stable to leave the hospital, I anticipate the patient will likely be discharged to the following environment: home with HH + CG vs SNF I spent 70 minutes on this patient's case, and 38 minutes were dedicated to counseling and/or care coordination. Discussed with patient/family, nursing staff, SW/CM, pulm regarding clinical status, treatment course, and disposition planning. Time of note may not reflect time of encounter. Ulysses Boyer M.D. Jul 17, 2017 17:14
[2017-07-17] MEDS: Azithromycin 500 MG in D5W 275 ML IV SCH (18:25)
--- NOTE | 2017-07-17 19:49 | Consultation ---
History of Present Illness General Date patient seen: Jul 16, 2017 Chief Complaint: Dyspnea/Respdistress Referring physician: Dr. Knott (PCP) and Dr. Walker Reason for Consultation: med mgmt Present Illness HPI 67-year-old male with multiple medical problems including history of asthma and reactive airway disease, who was admitted to this medical center due to shortness of breath and cough. the pt has hx of bipolar d/o he is on multiple meds. During the eval he was coughing severely and was slightly confused. he was disorganized Allergies: Coded Allergies: No Known Allergies (Unverified , 07/16/17) Medication History Scheduled Alprazolam* (Xanax*), 1 MG ORAL BID, (Reported) Aripiprazole* (Abilify*), 10 MG ORAL DAILY, (Reported) Duloxetine Hcl* (Cymbalta*), 60 MG ORAL DAILY, (Reported) Lamotrigine* (Lamictal*), 100 MG ORAL BID, (Reported) Montelukast Sodium* (Singulair*), 10 MG ORAL DAILY, (Reported) Risperidone* (Risperdal*), 0.5 MG ORAL BEDTIME, (Reported) Scheduled PRN Albuterol Sulfate* (Albuterol Sulfate Hhn*), 3 ML INH THREE TIMES A DAY PRN for WHEEZING, (Reported) Patient History Limited by: medical condition History Provided By: Patient, Medical Record, PMD Healthcare decision maker Resuscitation status Full Code Advanced Directive on File No Past Medical/Surgical History Past Medical/Surgical History: (1) Respiratory distress (2) Morbid obesity (3) History of asthma (4) Acute asthma exacerbation Review of Systems Psychiatric: Reports: prior hx, anxiety, depressed feelings, emotional problems Physical Exam General Appearance: no apparent distress, alert, obese Neurologic: alert, oriented x 3, responsive, depressed affect Last 24 Hour Vital Signs Date Time Temp Pulse Resp B/P (MAP) Pulse Ox O2 Delivery O2 Flow Rate FiO2 07/17/17 16:00 95 07/17/17 16:00 97.4 98 19 138/68 Nasal Cannula 3.0 07/17/17 13:53 101 24 96 Nasal Cannula 3.0 32 07/17/17 13:42 94 24 94 Nasal Cannula 3.0 32 07/17/17 12:00 93 07/17/17 12:00 97.8 80 19 130/80 Nasal Cannula 3.0 07/17/17 11:30 87 Room Air 07/17/17 08:07 92 Nasal Cannula 3.0 32 07/17/17 08:06 Nasal Cannula 3.0 32 07/17/17 08:00 101 07/17/17 08:00 96.4 69 19 135/75 Room Air 07/17/17 08:00 96 Nasal Cannula 2.0 07/17/17 04:00 97.0 90 20 131/80 97 Simple Mask 07/17/17 04:00 88 07/17/17 00:32 97 24 97 Simple Mask 4.0 36 07/17/17 00:20 84 25 93 Simple Mask 4.0 36 07/17/17 00:00 97.9 89 22 146/94 96 Simple Mask 4.0 07/17/17 00:00 90 07/16/17 20:00 97.0 103 20 123/74 97 Simple Mask 4.0 07/16/17 20:00 97 Intake and Output 07/17/17 07/18/17 19:00 07:00 Intake Total 300 ml Balance 300 ml Intake Oral 300 ml # Voids 2 Height (Feet): 5 Height (Inches): 8.00 Weight (Pounds): 256 Medications Current Medications Medications (Trade) Dose Ordered Sig/Hi Route PRN Reason Start Time Stop Time Status Last Admin Dose Admin Albuterol/ Ipratropium (Albuterol/ Ipratropium) 3 ml Q4H PRN HHN Shortness of Breath 07/17/17 13:45 07/22/17 13:44 07/17/17 13:45 Aripiprazole (Abilify) 10 mg DAILY ORAL 07/16/17 09:00 08/15/17 08:59 07/17/17 08:18 Azithromycin 500 mg/Dextrose 275 ml @ 275 mls/hr Q24HRS IV 07/16/17 18:00 07/22/17 18:59 07/17/17 18:25 Dextrose (Dextrose 50%) STAT PRN IV Hypoglycemia 07/16/17 06:30 08/15/17 06:29 Duloxetine HCl (Cymbalta) 60 mg DAILY ORAL 07/16/17 09:00 08/15/17 08:59 07/17/17 08:18 Heparin Sodium (Porcine) (Heparin 5000 units/ml) 5,000 units EVERY 12 HOURS SUBQ 07/16/17 09:00 08/15/17 08:59 07/17/17 08:19 Ketorolac Tromethamine (Toradol 30mg) 30 mg EVERY 8 HOURS PRN IV moderate pain 4-6 07/16/17 06:30 07/21/17 06:29 Lamotrigine (LaMICtal) 100 mg BID ORAL 07/16/17 09:00 08/15/17 08:59 07/17/17 18:25 Lorazepam (Ativan 2mg/ml 1ml) 0.5 mg Q4H PRN IV For Anxiety 07/16/17 06:30 07/23/17 06:29 Methylprednisolone Sodium Succinate (Solu-MEDROL) 60 mg EVERY 6 HOURS IV 07/16/17 12:00 08/15/17 11:59 07/17/17 18:25 Morphine Sulfate (Morphine Sulfate) 2 mg EVERY 4 HOURS PRN IVP severe pain 7-10 07/16/17 06:30 07/23/17 06:29 Nitroglycerin (Ntg) 0.4 mg Q5M X 3 DOSES PRN SL Prn Chest Pain 07/16/17 06:30 08/15/17 06:29 Ondansetron HCl (Zofran) 4 mg Q6H PRN IVP Nausea & Vomiting 07/16/17 06:30 08/15/17 06:29 Piperacillin Sod/ Tazobactam Sod 3.375 gm/Dextrose 55 ml @ 13.75 mls/ hr EVERY 8 HOURS IVPB 07/16/17 14:00 07/21/17 13:59 07/17/17 13:02 Promethazine HCl/ Codeine (Phenergan with Codeine) 5 ml EVERY 6 HOURS PRN ORAL cough 07/16/17 06:30 08/15/17 06:29 Risperidone (RisperDAL) 0.5 mg BEDTIME ORAL 07/16/17 21:00 08/15/17 20:59 07/16/17 21:10 Temazepam (Restoril) 15 mg HSPRN PRN ORAL Insomnia 07/16/17 06:30 07/23/17 06:29 Theophylline (Maik-Dur) 100 mg EVERY 12 HOURS ORAL 07/16/17 09:00 08/15/17 08:59 07/17/17 08:18 Assessment/Plan Status: stable Assessment/Plan Bipolar d/o abilify 30mg dc risperdal cont lamictal cont Rina Nagel M.D. Jul 17, 2017 19:49
[2017-07-17 20:20] VITALS: BP 126/75
[2017-07-18] VITALS: BP 127/79
[2017-07-18] MEDS: Solu-MEDROL 125mg Inj IV SCH ×5 (00:15→23:20)
[2017-07-18] MEDS: Albuterol/Ipratropium 3ml neb HHN PRN ×5 (00:33→20:28)
[2017-07-18 04:15] VITALS: BP 139/75
--- NOTE | 2017-07-18 05:02 | Diagnostic Imaging Report ---
Indication: Shortness of breath Technique: One view of the chest Comparison: 07/16/2017 Findings: Lungs and pleural spaces are clear. Heart size is normal. No significant interim change Impression: No acute process
[2017-07-18] MEDS: Piperacillin/Tazobactam 3.375 GM in D5W 55 ML IVPB SCH ×2 (06:01→13:13)
[2017-07-18 07:34] LABS: HEMATOCRIT 38.3 % (42.0-52.0); HEMOGLOBIN 12.6 G/DL (14.2-18.0); MEAN CORPUSCULAR VOLUME 92 FL (80-99); PLATELET COUNT 212 K/UL (150-450); RED BLOOD COUNT 4.16 M/UL (4.70-6.10); RED CELL DISTRIBUTION WIDTH 14.1 % (11.6-14.8); WHITE BLOOD COUNT 15.3 K/UL (4.8-10.8)
[2017-07-18 07:40] LABS: ALANINE AMINOTRANSFERASE 67 U/L (12-78); ALBUMIN 3.5 G/DL (3.4-5.0); ALBUMIN/GLOBULIN RATIO 1.1 (1.0-2.7); ALKALINE PHOSPHATASE 60 U/L (46-116); ANION GAP 5 mmol/L (5-15); ASPARTATE AMINO TRANSFERASE 23 U/L (15-37); BILIRUBIN,TOTAL 0.2 MG/DL (0.2-1.0); BLOOD UREA NITROGEN 27 mg/dL (7-18); CALCIUM 8.4 MG/DL (8.5-10.1); CARBON DIOXIDE 32 MMOL/L (21-32); CHLORIDE 104 MMOL/L (98-107); CREATININE 1.4 MG/DL (0.55-1.30); PHOSPHORUS 4.1 MG/DL (2.5-4.9); POTASSIUM 4.7 MMOL/L (3.5-5.1); SODIUM 141 MMOL/L (136-145)
[2017-07-18] MEDS: ARIPiprazole 10mg tab ORAL SCH (08:24)
[2017-07-18] MEDS: Theophylline ER 100mg ORAL SCH ×2 (08:24→20:40)
[2017-07-18] MEDS: DULoxetine 30mg cap ORAL SCH (08:25)
[2017-07-18] MEDS: Heparin 5000 units/ml inj SUBQ SCH ×2 (08:33→20:46)
[2017-07-18 08:52] VITALS: BP 129/77
--- NOTE | 2017-07-18 11:01 | Cardiology Report ---
APPROVED REPORT EKG Measurement Heart [id number] Sinus tachycardia Left axis deviation Pulmonary disease pattern Abnormal QRS-T angle, consider primary T wave abnormality Abnormal ECG
--- NOTE | 2017-07-18 11:02 | Diagnostic Imaging Report ---
Indication: SOB, cough Technique: One view of the chest Comparison: 06/15/2010 Findings: Lungs and pleural spaces are clear. Heart size is normal. No significant interim change Impression: No acute process
[2017-07-18 12:11] VITALS: BP 156/89
[2017-07-18] MEDS ORDERED: ALPRAZolam 0.5mg tab ORAL PRN (12:30)
--- NOTE | 2017-07-18 12:36 | Pulmonology Progress Note ---
Assessment/Plan Problems: (1) Acute asthma exacerbation (2) History of craniotomy (3) Morbid obesity Assessment/Plan still short of breath respiratory treatment prn check sputum taper steroids when less sob dvt prophylaxis. same dose steroids med/surg Subjective ROS Limited/Unobtainable: No Constitutional: Reports: no symptoms HEENT: Repors: no symptoms Respiratory: Reports: no symptoms Allergies: Coded Allergies: No Known Allergies (Unverified , 07/16/17) Objective Last 24 Hour Vital Signs Date Time Temp Pulse Resp B/P (MAP) Pulse Ox O2 Delivery O2 Flow Rate FiO2 07/18/17 12:11 98.1 97 24 156/89 96 07/18/17 09:42 88 20 98 Nasal Cannula 3.0 32 07/18/17 09:36 95 22 96 Nasal Cannula 3.0 32 07/18/17 08:52 97.3 86 20 129/77 95 07/18/17 08:00 79 07/18/17 07:45 98 Nasal Cannula 3.0 32 07/18/17 07:45 Nasal Cannula 3.0 32 07/18/17 07:44 80 20 Nasal Cannula 3.0 32 07/18/17 04:30 86 22 97 Nasal Cannula 3.0 32 07/18/17 04:15 97.3 91 20 139/75 96 Room Air 07/18/17 04:13 88 23 94 Nasal Cannula 3.0 32 07/18/17 04:00 Nasal Cannula 3.0 07/18/17 04:00 97 07/18/17 00:41 82 20 97 Nasal Cannula 3.0 32 07/18/17 00:31 86 24 95 Nasal Cannula 3.0 32 07/18/17 00:00 89 07/18/17 00:00 99.1 89 20 127/79 94 Nasal Cannula 07/18/17 00:00 Nasal Cannula 3.0 07/17/17 21:00 Nasal Cannula 3.0 32 07/17/17 20:59 95 Nasal Cannula 3.0 32 07/17/17 20:20 97.0 90 20 126/75 97 Room Air 07/17/17 20:00 Nasal Cannula 3.0 07/17/17 20:00 90 07/17/17 16:00 95 07/17/17 16:00 97.4 98 19 138/68 Nasal Cannula 3.0 07/17/17 13:53 101 24 96 Nasal Cannula 3.0 32 07/17/17 13:42 94 24 94 Nasal Cannula 3.0 32 General Appearance: WD/WN HEENT: normocephalic, atraumatic Respiratory/Chest: chest wall non-tender, crackles/rales, rhonchi Cardiovascular: normal peripheral pulses, normal rate Abdomen: normal bowel sounds, soft, non tender Microbiology Date/Time Source Procedure Growth Status 07/16/17 04:10 Blood Blood Culture - Preliminary NO GROWTH AFTER 24 HOURS Resulted 07/16/17 03:50 Blood Blood Culture - Preliminary NO GROWTH AFTER 24 HOURS Resulted 07/16/17 17:05 Nasopharynx Influenza Types A,B Antigen (PIERRE) - Final Complete 07/16/17 08:58 Sputum Gram Stain - Final Resulted 07/16/17 08:58 Sputum Sputum Culture - Preliminary NORMAL UPPER RESPIRATORY CHASITY AT 24 ... Resulted 07/16/17 06:10 Nasal Nares MRSA Culture - Final NO METHICILLIN RESISTANT STAPH AUREUS... Complete 07/16/17 06:19 Rectum VRE Culture - Final NO VANCOMYCIN RESISTANT ENTEROCOCCUS ... Complete Laboratory Tests 07/18/17 06:45: White Blood Count 15.3H, Red Blood Count 4.16L, Hemoglobin 12.6L, Hematocrit 38.3L, Mean Corpuscular Volume 92, Mean Corpuscular Hemoglobin 30.2, Mean Corpuscular Hemoglobin Concent 32.8, Red Cell Distribution Width 14.1, Platelet Count 212, Mean Platelet Volume 7.8, Neutrophils (%) (Auto) , Lymphocytes (%) ( Auto) , Monocytes (%) (Auto) , Eosinophils (%) (Auto) , Basophils (%) (Auto) , Differential Total Cells Counted 100, Neutrophils % (Manual) 88H, Lymphocytes % (Manual) 7L, Monocytes % (Manual) 5, Eosinophils % (Manual) 0, Basophils % ( Manual) 0, Band Neutrophils 0, Platelet Estimate Adequate, Platelet Morphology Normal, Red Blood Cell Morphology Normal, Erythrocyte Sedimentation Rate 15, Sodium Level 141, Potassium Level 4.7, Chloride Level 104, Carbon Dioxide Level 32, Anion Gap 5, Blood Urea Nitrogen 27H, Creatinine 1.4H, Estimat Glomerular Filtration Rate 50.7, Glucose Level 151H, Calcium Level 8.4L, Phosphorus Level 4.1, Magnesium Level 2.4, Total Bilirubin 0.2, Aspartate Amino Transf (AST/SGOT ) 23, Alanine Aminotransferase (ALT/SGPT) 67, Alkaline Phosphatase 60, Total Protein 6.8, Albumin 3.5, Globulin 3.3, Albumin/Globulin Ratio 1.1 Current Medications Medications (Trade) Dose Ordered Sig/Hi Route PRN Reason Start Time Stop Time Status Last Admin Dose Admin Albuterol/ Ipratropium (Albuterol/ Ipratropium) 3 ml Q4H PRN HHN Shortness of Breath 07/17/17 13:45 07/22/17 13:44 07/18/17 09:35 Alprazolam (Xanax) 1 mg BID PRN ORAL For Anxiety 07/18/17 12:30 07/25/17 12:29 UNV Aripiprazole (Abilify) 10 mg DAILY ORAL 07/16/17 09:00 08/15/17 08:59 07/18/17 08:24 Azithromycin 500 mg/Dextrose 275 ml @ 275 mls/hr Q24HRS IV 07/16/17 18:00 07/22/17 18:59 07/17/17 18:25 Dextrose (Dextrose 50%) STAT PRN IV Hypoglycemia 07/16/17 06:30 08/15/17 06:29 Duloxetine HCl (Cymbalta) 60 mg DAILY ORAL 07/16/17 09:00 08/15/17 08:59 07/18/17 08:25 Heparin Sodium (Porcine) (Heparin 5000 units/ml) 5,000 units EVERY 12 HOURS SUBQ 07/16/17 09:00 08/15/17 08:59 07/18/17 08:33 Ketorolac Tromethamine (Toradol 30mg) 30 mg EVERY 8 HOURS PRN IV moderate pain 4-6 07/16/17 06:30 07/21/17 06:29 Lamotrigine (LaMICtal) 100 mg BID ORAL 07/16/17 09:00 08/15/17 08:59 07/18/17 08:24 Lorazepam (Ativan 2mg/ml 1ml) 0.5 mg Q4H PRN IV For Anxiety 07/16/17 06:30 07/23/17 06:29 07/17/17 21:57 Methylprednisolone Sodium Succinate (Solu-MEDROL) 60 mg EVERY 6 HOURS IV 07/16/17 12:00 08/15/17 11:59 07/18/17 06:01 Morphine Sulfate (Morphine Sulfate) 2 mg EVERY 4 HOURS PRN IVP severe pain 7-10 07/16/17 06:30 07/23/17 06:29 Nitroglycerin (Ntg) 0.4 mg Q5M X 3 DOSES PRN SL Prn Chest Pain 07/16/17 06:30 08/15/17 06:29 Ondansetron HCl (Zofran) 4 mg Q6H PRN IVP Nausea & Vomiting 07/16/17 06:30 08/15/17 06:29 Piperacillin Sod/ Tazobactam Sod 3.375 gm/Dextrose 55 ml @ 13.75 mls/ hr EVERY 8 HOURS IVPB 07/16/17 14:00 07/21/17 13:59 07/18/17 06:01 Promethazine HCl/ Codeine (Phenergan with Codeine) 5 ml EVERY 6 HOURS PRN ORAL cough 07/16/17 06:30 08/15/17 06:29 Temazepam (Restoril) 15 mg HSPRN PRN ORAL Insomnia 07/16/17 06:30 07/23/17 06:29 07/18/17 00:44 Theophylline (Maik-Dur) 100 mg EVERY 12 HOURS ORAL 07/16/17 09:00 08/15/17 08:59 07/18/17 08:24 АНДРЕЙ RUIZ Jul 18, 2017 12:36
--- NOTE | 2017-07-18 13:47 | Infectious Diseases Prog Note ---
Assessment/Plan Assessment/Plan ASSESSMENT: The patient is a 67-year-old male with: Leukocytosis ( rocio steroids ) Asthma exacerbation Possible pneumonia Cxray : NAPD Viral upper respiratory tract infection, Rapid influenza test: Neg Asthma. Bipolar disorder. Depression. PLAN: continue the patient on Zithromax d# 3 / 5 and C Zosyn d# 3 on Solu-Medrol Blood culture. Sputum culture. Monitor chest x-ray. Monitor CBC. Subjective Allergies: Coded Allergies: No Known Allergies (Unverified , 07/16/17) Subjective Afebrile Objective Vital Signs Last 24 Hour Vital Signs Date Time Temp Pulse Resp B/P (MAP) Pulse Ox O2 Delivery O2 Flow Rate FiO2 07/18/17 12:11 98.1 97 24 156/89 96 07/18/17 09:42 88 20 98 Nasal Cannula 3.0 32 07/18/17 09:36 95 22 96 Nasal Cannula 3.0 32 07/18/17 08:52 97.3 86 20 129/77 95 07/18/17 08:00 79 07/18/17 07:45 98 Nasal Cannula 3.0 32 07/18/17 07:45 Nasal Cannula 3.0 32 07/18/17 07:44 80 20 Nasal Cannula 3.0 32 07/18/17 04:30 86 22 97 Nasal Cannula 3.0 32 07/18/17 04:15 97.3 91 20 139/75 96 Room Air 07/18/17 04:13 88 23 94 Nasal Cannula 3.0 32 07/18/17 04:00 Nasal Cannula 3.0 07/18/17 04:00 97 07/18/17 00:41 82 20 97 Nasal Cannula 3.0 32 07/18/17 00:31 86 24 95 Nasal Cannula 3.0 32 07/18/17 00:00 89 07/18/17 00:00 99.1 89 20 127/79 94 Nasal Cannula 07/18/17 00:00 Nasal Cannula 3.0 07/17/17 21:00 Nasal Cannula 3.0 32 07/17/17 20:59 95 Nasal Cannula 3.0 32 07/17/17 20:20 97.0 90 20 126/75 97 Room Air 07/17/17 20:00 Nasal Cannula 3.0 07/17/17 20:00 90 07/17/17 16:00 95 07/17/17 16:00 97.4 98 19 138/68 Nasal Cannula 3.0 07/17/17 13:53 101 24 96 Nasal Cannula 3.0 32 Height (Feet): 5 Height (Inches): 8.00 Weight (Pounds): 256 HEENT: atraumatic Respiratory/Chest: no accessory muscle use Cardiovascular: regularly irregular Abdomen: non distended Microbiology Date/Time Source Procedure Growth Status 07/16/17 04:10 Blood Blood Culture - Preliminary NO GROWTH AFTER 24 HOURS Resulted 07/16/17 03:50 Blood Blood Culture - Preliminary NO GROWTH AFTER 24 HOURS Resulted 07/16/17 17:05 Nasopharynx Influenza Types A,B Antigen (PIERRE) - Final Complete 07/16/17 08:58 Sputum Gram Stain - Final Resulted 07/16/17 08:58 Sputum Sputum Culture - Preliminary NORMAL UPPER RESPIRATORY CHASITY AT 24 ... Resulted 07/16/17 06:10 Nasal Nares MRSA Culture - Final NO METHICILLIN RESISTANT STAPH AUREUS... Complete 07/16/17 06:19 Rectum VRE Culture - Final NO VANCOMYCIN RESISTANT ENTEROCOCCUS ... Complete Laboratory Tests Test 07/18/17 06:45 White Blood Count 15.3 K/UL (4.8-10.8) H Red Blood Count 4.16 M/UL (4.70-6.10) L Hemoglobin 12.6 G/DL (14.2-18.0) L Hematocrit 38.3 % (42.0-52.0) L Mean Corpuscular Volume 92 FL (80-99) Mean Corpuscular Hemoglobin 30.2 PG (27.0-31.0) Mean Corpuscular Hemoglobin Concent 32.8 G/DL (32.0-36.0) Red Cell Distribution Width 14.1 % (11.6-14.8) Platelet Count 212 K/UL (150-450) Mean Platelet Volume 7.8 FL (6.5-10.1) Neutrophils (%) (Auto) % (45.0-75.0) Lymphocytes (%) (Auto) % (20.0-45.0) Monocytes (%) (Auto) % (1.0-10.0) Eosinophils (%) (Auto) % (0.0-3.0) Basophils (%) (Auto) % (0.0-2.0) Differential Total Cells Counted 100 Neutrophils % (Manual) 88 % (45-75) H Lymphocytes % (Manual) 7 % (20-45) L Monocytes % (Manual) 5 % (1-10) Eosinophils % (Manual) 0 % (0-3) Basophils % (Manual) 0 % (0-2) Band Neutrophils 0 % (0-8) Platelet Estimate Adequate Platelet Morphology Normal Red Blood Cell Morphology Normal Erythrocyte Sedimentation Rate 15 MM/HR (0-20) Sodium Level 141 MMOL/L (136-145) Potassium Level 4.7 MMOL/L (3.5-5.1) Chloride Level 104 MMOL/L (98-107) Carbon Dioxide Level 32 MMOL/L (21-32) Anion Gap 5 mmol/L (5-15) Blood Urea Nitrogen 27 mg/dL (7-18) H Creatinine 1.4 MG/DL (0.55-1.30) H Estimat Glomerular Filtration Rate 50.7 mL/min (>60) Glucose Level 151 MG/DL (74-106) H Calcium Level 8.4 MG/DL (8.5-10.1) L Phosphorus Level 4.1 MG/DL (2.5-4.9) Magnesium Level 2.4 MG/DL (1.8-2.4) Total Bilirubin 0.2 MG/DL (0.2-1.0) Aspartate Amino Transf (AST/SGOT) 23 U/L (15-37) Alanine Aminotransferase (ALT/SGPT) 67 U/L (12-78) Alkaline Phosphatase 60 U/L (46-116) Total Protein 6.8 G/DL (6.4-8.2) Albumin 3.5 G/DL (3.4-5.0) Globulin 3.3 g/dL Albumin/Globulin Ratio 1.1 (1.0-2.7) Current Medications Medications (Trade) Dose Ordered Sig/Hi Route PRN Reason Start Time Stop Time Status Last Admin Dose Admin Albuterol/ Ipratropium (Albuterol/ Ipratropium) 3 ml Q4H PRN HHN Shortness of Breath 07/17/17 13:45 07/22/17 13:44 07/18/17 09:35 Alprazolam (Xanax) 1 mg BIDPRN PRN ORAL For Anxiety 07/18/17 12:30 07/25/17 12:29 Aripiprazole (Abilify) 10 mg DAILY ORAL 07/16/17 09:00 08/15/17 08:59 07/18/17 08:24 Azithromycin 500 mg/Dextrose 275 ml @ 275 mls/hr Q24HRS IV 07/16/17 18:00 07/22/17 18:59 07/17/17 18:25 Dextrose (Dextrose 50%) STAT PRN IV Hypoglycemia 07/16/17 06:30 08/15/17 06:29 Duloxetine HCl (Cymbalta) 60 mg DAILY ORAL 07/16/17 09:00 08/15/17 08:59 07/18/17 08:25 Heparin Sodium (Porcine) (Heparin 5000 units/ml) 5,000 units EVERY 12 HOURS SUBQ 07/16/17 09:00 08/15/17 08:59 07/18/17 08:33 Ketorolac Tromethamine (Toradol 30mg) 30 mg EVERY 8 HOURS PRN IV moderate pain 4-6 07/16/17 06:30 07/21/17 06:29 Lamotrigine (LaMICtal) 100 mg BID ORAL 07/16/17 09:00 08/15/17 08:59 07/18/17 08:24 Lorazepam (Ativan 2mg/ml 1ml) 0.5 mg Q4H PRN IV For Anxiety 07/16/17 06:30 07/23/17 06:29 07/17/17 21:57 Methylprednisolone Sodium Succinate (Solu-MEDROL) 60 mg EVERY 6 HOURS IV 07/16/17 12:00 08/15/17 11:59 07/18/17 13:31 Morphine Sulfate (Morphine Sulfate) 2 mg EVERY 4 HOURS PRN IVP severe pain 7-10 07/16/17 06:30 07/23/17 06:29 Nitroglycerin (Ntg) 0.4 mg Q5M X 3 DOSES PRN SL Prn Chest Pain 07/16/17 06:30 08/15/17 06:29 Ondansetron HCl (Zofran) 4 mg Q6H PRN IVP Nausea & Vomiting 07/16/17 06:30 08/15/17 06:29 Piperacillin Sod/ Tazobactam Sod 3.375 gm/Dextrose 55 ml @ 13.75 mls/ hr EVERY 8 HOURS IVPB 07/16/17 14:00 07/21/17 13:59 07/18/17 13:13 Promethazine HCl/ Codeine (Phenergan with Codeine) 5 ml EVERY 6 HOURS PRN ORAL cough 07/16/17 06:30 08/15/17 06:29 Temazepam (Restoril) 15 mg HSPRN PRN ORAL Insomnia 07/16/17 06:30 07/23/17 06:29 07/18/17 00:44 Theophylline (Maik-Dur) 100 mg EVERY 12 HOURS ORAL 07/16/17 09:00 08/15/17 08:59 07/18/17 08:24 ELZA ROJAS M.D. Jul 18, 2017 13:47
[2017-07-18] MEDS ORDERED: Nitroglycerin Subl 0.4mg tab SL PRN (15:00)
[2017-07-18] MEDS ORDERED: Ketorolac 30mg Inj IV PRN (15:30)
[2017-07-18] MEDS ORDERED: Morphine Sulfate 2mg/ml Inj IVP PRN (15:30)
[2017-07-18] MEDS ORDERED: LORazepam Inj 2mg/ml 1ml IV PRN (15:30)
[2017-07-18] MEDS ORDERED: NS 500ML ONE (15:42)
[2017-07-18] MEDS ORDERED: Tubing IV Secondary IV ONE (15:42)
--- NOTE | 2017-07-18 15:43 | Physician Query ---
PLEASE COMPLETE THE FORM BEFORE SIGNING Dear Dr. Cuate Walker Date 07-18-2017 Deputy Director Of Nursing/CDS BJ Mock Deputy Director Of Nursing/CDS Phone #: [phone] Exercise your independent professional judgment when responding to query. Questions asked do not imply particular answer is desired or expected. We greatly appreciate your clarification on this issue. Clinical Documentation States: "67 year old male with hx of asthma, brain surgery, morbid obesity bed bound with recent hospitalization at [facility] presented to ER with complaints of shortness of breath" documented in the H/P of Dr. Walker. Clinical Findings Show: RR:35,30,31 Short of Breath, Shallow CO2= 35 on nasal oxygen Please clarify if the patient had any of the following conditions based on the above clinical findings: [x]Respiratory Failure [x] Acute [] Chronic (on home O2) []Acute on Chronic [] Acute Respiratory Distress [] Acute Respiratory Insufficiency [] Respiratory failure due to trauma [] Respiratory insufficiency due to trauma [] Unable to determine [] Other: Condition Present on Admission: [x] Yes [] No []Clinically Undeterminable Please also document in your Progress Notes and/or Discharge Summary and indicate if the condition was present on admission. Cuate Walker MD Date/Time [facility]
[2017-07-18 16:00] VITALS: BP 137/82
[2017-07-18] MEDS: Azithromycin 500 MG in D5W 275 ML IV SCH (18:22)
[2017-07-18] MEDS: Promethazine/Codeine 5ml UD ORAL PRN (18:37)
[2017-07-18 20:00] VITALS: BP 122/64
[2017-07-18] MEDS: ALPRAZolam 0.5mg tab ORAL PRN (20:41)
[2017-07-19] VITALS: BP 126/81
[2017-07-19 04:00] VITALS: BP 143/91
--- NOTE | 2017-07-19 04:45 | Progress Note ---
SUBJECTIVE: The patient is doing well, cooperative, breathing better, less confused. The patient is not confused and is more organized. MENTAL STATUS EXAMINATION: The patient is obese, alert and oriented times self, place, and situation he is in. Mood is irritable. Affect is constricted, congruent with mood. Thought process is linear. Thought content, no suicidal or homicidal ideation. ASSESSMENT: Bipolar disorder. PLAN: 1. We will continue the Ativan p.r.n., Lamictal 100 mg b.i.d., Cymbalta 60 mg in the morning, and Abilify 10 mg in the morning. 2. We will continue to follow and the patient. Rina Damon M.D. DR: CINDY JOB#: [id number] CC:
[2017-07-19] MEDS: Solu-MEDROL 125mg Inj IV SCH ×3 (06:12→22:05)
--- NOTE | 2017-07-19 07:14 | General Progress Note ---
Assessment/Plan Problem List: (1) Acute asthma exacerbation ICD Codes: J45.901 - Unspecified asthma with (acute) exacerbation SNOMED: 556762675 (2) Viral URI vs bronchitis (3) Acute respiratory failure with hypoxia ICD Codes: J96.01 - Acute respiratory failure with hypoxia SNOMED: 74512631, 270991989 (4) Morbid obesity ICD Codes: E66.01 - Morbid (severe) obesity due to excess calories SNOMED: 996311467, 70381715712361 (5) severe KAYLEE (6) NOEMÍ (acute kidney injury) ICD Codes: N17.9 - Acute kidney failure, unspecified SNOMED: 33433072 (7) NPH (normal pressure hydrocephalus) ICD Codes: G91.2 - (Idiopathic) normal pressure hydrocephalus SNOMED: 99432990 (8) Anxiety ICD Codes: F41.9 - Anxiety disorder, unspecified SNOMED: 95077482 (9) Bipolar disorder ICD Codes: F31.9 - Bipolar disorder, unspecified SNOMED: 28226670 (10) Depression ICD Codes: F32.9 - Major depressive disorder, single episode, unspecified SNOMED: 91837836 Status: stable Assessment/Plan Appreciate pulmonary, ID, psych, neuro rec's Cont abx per ID: azithro + zosyn Cont steroids per pulm Cont nebs ATC and PRN Cont O2 and wean off as tolerated Cont CPAP at [id number] qHS Cont home meds Trend CBC, BMP PT eval Possible transfer to [facility] per PCP request vs d/c home in 1-2 days pending further improvement DVT Prophylaxis: SCD, HSQ Code Status: Full Hospital Classification Declaration: Based on this initial evaluation, and depending on the patient's clinical course, I anticipate that this patient will require hospitalization for 1-2 days for acute asthma exacerbation and close respiratory/hemodynamic monitoring. Disposition: Once the patient is stable to leave the hospital, I anticipate the patient will likely be discharged to the following environment: home with HH + CG vs SNF Discussed with patient/family, nursing staff, SW/CM, pulm regarding clinical status, treatment course, and disposition planning. D/w pt's caregiver regarding mgmt and dispo Subjective Date patient seen: Jul 18, 2017 Time patient seen: 09:30 ROS Limited/Unobtainable: No Constitutional: Reports: no symptoms HEENT: Reports: no symptoms Cardiovascular: Reports: no symptoms Respiratory: Reports: cough, shortness of breath Gastrointestinal/Abdominal: Reports: no symptoms Genitourinary: Reports: no symptoms Neurologic/Psychiatric: Reports: no symptoms Endocrine: Reports: no symptoms Hematologic/Lymphatic: Reports: no symptoms Allergies: Coded Allergies: No Known Allergies (Unverified , 07/16/17) All Systems: reviewed and negative except above Subjective No acute o/n events CG at bedside this AM states pt is not yet ready to come home. Pt w/ continued SOB. He is feeling anxious and tremulous, requesting his xanax. Cough improving. Denies f/c, n/v, d/c, chest pain. Objective Last 24 Hour Vital Signs Date Time Temp Pulse Resp B/P (MAP) Pulse Ox O2 Delivery O2 Flow Rate FiO2 07/19/17 04:00 97.2 75 24 143/91 98 Nasal Cannula 3.0 07/19/17 00:00 98.1 87 22 126/81 96 07/18/17 20:38 90 20 98 Nasal Cannula 3.0 32 07/18/17 20:28 96 Nasal Cannula 3.0 32 07/18/17 20:28 Nasal Cannula 3.0 32 07/18/17 20:28 89 20 96 Nasal Cannula 3.0 32 07/18/17 20:28 89 20 Nasal Cannula 3.0 32 07/18/17 20:00 Nasal Cannula 3.0 07/18/17 20:00 99.1 96 22 122/64 98 07/18/17 16:09 85 20 96 Nasal Cannula 3.0 32 07/18/17 16:00 98.2 85 19 137/82 99 07/18/17 12:11 98.1 97 24 156/89 96 07/18/17 12:00 90 07/18/17 09:42 88 20 98 Nasal Cannula 3.0 32 07/18/17 09:36 95 22 96 Nasal Cannula 3.0 32 07/18/17 08:52 97.3 86 20 129/77 95 07/18/17 08:00 79 07/18/17 07:45 98 Nasal Cannula 3.0 32 07/18/17 07:45 Nasal Cannula 3.0 32 07/18/17 07:44 80 20 Nasal Cannula 3.0 32 Height (Feet): 5 Height (Inches): 8.00 Weight (Pounds): 256 Objective General: alert, cooperative, no distress, appears stated age, obese Head: normocephalic, without obvious abnormality, atraumatic Eyes: conjunctivae/corneas clear. PERRL, EOM's intact Throat: lips, mucosa, and tongue normal. MMM Neck: supple, symmetrical, trachea midline, and no JVD Lungs: +rhonchi b/l Heart: regular rate and rhythm, S1, S2 normal, no murmur, click, rub or gallop Abdomen: soft, non-tender, non-distended, bowel sounds normal; obese abd Extremities: extremities normal, atraumatic, no cyanosis, trace BLE edema Pulses: 2+ and symmetric Skin: skin color, texture, turgor normal; no rashes or lesions Neurologic: grossly normal, no focal deficits Ulysses Boyer M.D. Jul 19, 2017 07:14
[2017-07-19] MEDS: Albuterol/Ipratropium 3ml neb HHN PRN ×2 (07:42→12:54)
--- NOTE | 2017-07-19 07:43 | Pulmonology Progress Note ---
Assessment/Plan Assessment/Plan ASSESSMENT Acute respiratory distress acute asthma/COPD exacerbation possible PNA possible URI acute kidney injury vs CRI lactic acidosis bipolar disorder probable NPH morbid obesity possible KAYLEE PLAN OF CARE MS floor O2 HHN titrate FiO2 IV steroids and taper Empiric abx Sputum cx if able trial of theophylline a/tussive prn leukocytosis likely reactive due to steroids CXR negative, fup CXR also negative influenza screen test negative DVT prophylaxis Monitor renal parameters, lytes,avoid nephrotoxic Recommend sleep study as outpatient PT eval and Rx, get OOB as tolerated psych follows psych medication regimen optimized neuro follows patient in the process of seeing neurosurgery for probable ventriculoperitoneal shunting, surgery tentatively scheduled for 07/31 discussed extensively with daughter case discussed and evaluated by supervising physician Subjective Allergies: Coded Allergies: No Known Allergies (Unverified , 07/16/17) Subjective still reports chest tightness. congestion, cough no chest pain, Objective Last 24 Hour Vital Signs Date Time Temp Pulse Resp B/P (MAP) Pulse Ox O2 Delivery O2 Flow Rate FiO2 07/19/17 04:00 97.2 75 24 143/91 98 Nasal Cannula 3.0 07/19/17 04:00 Nasal Cannula 3.0 07/19/17 00:00 Nasal Cannula 3.0 07/19/17 00:00 98.1 87 22 126/81 96 07/18/17 20:38 90 20 98 Nasal Cannula 3.0 32 07/18/17 20:28 96 Nasal Cannula 3.0 32 07/18/17 20:28 Nasal Cannula 3.0 32 07/18/17 20:28 89 20 96 Nasal Cannula 3.0 32 07/18/17 20:28 89 20 Nasal Cannula 3.0 32 07/18/17 20:00 Nasal Cannula 3.0 07/18/17 20:00 99.1 96 22 122/64 98 07/18/17 16:09 85 20 96 Nasal Cannula 3.0 32 07/18/17 16:00 98.2 85 19 137/82 99 07/18/17 12:11 98.1 97 24 156/89 96 07/18/17 12:00 90 07/18/17 09:42 88 20 98 Nasal Cannula 3.0 32 07/18/17 09:36 95 22 96 Nasal Cannula 3.0 32 07/18/17 08:52 97.3 86 20 129/77 95 07/18/17 08:00 79 07/18/17 07:45 98 Nasal Cannula 3.0 32 07/18/17 07:45 Nasal Cannula 3.0 32 07/18/17 07:44 80 20 Nasal Cannula 3.0 32 General Appearance: other - obese male in mild distress HEENT: normocephalic, atraumatic, anicteric Respiratory/Chest: rhonchi - isolated rhonchi at bases , expiratory wheezing - scattered , other - tachypneic Cardiovascular: normal rate, regular rhythm Abdomen: normal bowel sounds, soft, non tender - obese Extremities: no edema, pedal pulses normal Neurologic/Psychiatric: abnormal gait, alert, oriented x 3, responsive Musculoskeletal: normal muscle bulk Microbiology Date/Time Source Procedure Growth Status 07/16/17 17:05 Nasopharynx Influenza Types A,B Antigen (PIERRE) - Final Complete 07/16/17 08:58 Sputum Gram Stain - Final Complete 07/16/17 08:58 Sputum Sputum Culture - Final NORMAL UPPER RESPIRATORY CHASITY AT 48 ... Complete Current Medications Medications (Trade) Dose Ordered Sig/Hi Route PRN Reason Start Time Stop Time Status Last Admin Dose Admin Albuterol/ Ipratropium (Albuterol/ Ipratropium) 3 ml Q4H PRN HHN Shortness of Breath 07/18/17 15:30 07/22/17 15:29 07/19/17 07:42 Alprazolam (Xanax) 1 mg BIDPRN PRN ORAL For Anxiety 07/18/17 15:30 07/25/17 15:29 07/18/17 20:41 Aripiprazole (Abilify) 10 mg DAILY ORAL 07/19/17 09:00 08/15/17 08:59 Azithromycin 500 mg/Dextrose 275 ml @ 275 mls/hr Q24HRS IV 07/18/17 18:00 07/22/17 18:01 07/18/17 18:22 Dextrose (Dextrose 50%) STAT PRN IV Hypoglycemia 07/18/17 15:30 08/17/17 15:29 Duloxetine HCl (Cymbalta) 60 mg DAILY ORAL 07/19/17 09:00 08/15/17 08:59 Heparin Sodium (Porcine) (Heparin 5000 units/ml) 5,000 units EVERY 12 HOURS SUBQ 07/18/17 21:00 08/15/17 08:59 07/18/17 20:46 Ketorolac Tromethamine (Toradol 30mg) 30 mg Q8H PRN IV Moderate Pain (Pain Scale 4-6) 07/18/17 15:30 07/23/17 15:29 Lamotrigine (LaMICtal) 100 mg Q12HR ORAL 07/18/17 21:00 08/17/17 20:59 07/18/17 20:40 Methylprednisolone Sodium Succinate (Solu-MEDROL) 60 mg EVERY 6 HOURS IV 07/18/17 18:00 08/15/17 11:59 07/19/17 06:12 Morphine Sulfate (Morphine Sulfate) 2 mg Q4H PRN IVP Severe Pain (Pain Scale 7-10) 07/18/17 15:30 07/25/17 15:29 Nitroglycerin (Ntg) 0.4 mg Q5M X 3 DOSES PRN SL Prn Chest Pain 07/18/17 15:00 08/15/17 06:29 Ondansetron HCl (Zofran) 4 mg Q6H PRN IVP Nausea & Vomiting 07/18/17 15:30 08/15/17 15:29 Promethazine HCl/ Codeine (Phenergan with Codeine) 5 ml Q6H PRN ORAL cough 07/18/17 15:30 08/17/17 15:29 07/18/17 18:37 Temazepam (Restoril) 15 mg HSPRN PRN ORAL Insomnia 07/18/17 21:00 07/25/17 20:59 07/19/17 03:57 Theophylline (Maik-Dur) 100 mg EVERY 12 HOURS ORAL 07/18/17 21:00 08/15/17 08:59 07/18/17 20:40 [facility] Rubin NP Jul 19, 2017 07:43
[2017-07-19 08:00] VITALS: BP 131/79
[2017-07-19] MEDS: Theophylline ER 100mg ORAL SCH ×2 (08:49→20:24)
[2017-07-19] MEDS: Heparin 5000 units/ml inj SUBQ SCH ×2 (08:58→20:25)
[2017-07-19] MEDS ORDERED: ARIPiprazole 10mg tab ORAL SCH (09:00)
[2017-07-19] MEDS ORDERED: DULoxetine 30mg cap ORAL SCH (09:00)
[2017-07-19 10:33] LABS: HEMOGLOBIN 12.9 G/DL (14.2-18.0); MEAN CORPUSCULAR VOLUME 93 FL (80-99); PLATELET COUNT 225 K/UL (150-450); RED BLOOD COUNT 4.41 M/UL (4.70-6.10); WHITE BLOOD COUNT 12.2 K/UL (4.8-10.8)
[2017-07-19 10:49] LABS: ANION GAP 6 mmol/L (5-15); BLOOD UREA NITROGEN 29 mg/dL (7-18); CALCIUM 8.3 MG/DL (8.5-10.1); CARBON DIOXIDE 30 MMOL/L (21-32); CHLORIDE 105 MMOL/L (98-107); CREATININE 1.4 MG/DL (0.55-1.30); PHOSPHORUS 3.9 MG/DL (2.5-4.9); POTASSIUM 4.4 MMOL/L (3.5-5.1); SODIUM 141 MMOL/L (136-145)
[2017-07-19 12:00] VITALS: BP 128/81
[2017-07-19] MEDS: Promethazine/Codeine 5ml UD ORAL PRN ×2 (12:47→22:28)
[2017-07-19] MEDS: Albuterol/Ipratropium 3ml neb HHN SCH ×2 (14:00→22:51)
--- NOTE | 2017-07-19 14:32 | Infectious Diseases Prog Note ---
Assessment/Plan Assessment/Plan ASSESSMENT: The patient is a 67-year-old male with: Leukocytosis ( rocio steroids ) Asthma exacerbation Possible pneumonia Cxray : NAPD Viral upper respiratory tract infection, Rapid influenza test: Neg Asthma. Bipolar disorder. Depression. PLAN: continue the patient on Zithromax d# 4 / 5 on Solu-Medrol / SP Zosyn d# 3 Blood culture. Sputum culture. Monitor chest x-ray. Monitor CBC. Subjective Constitutional: Denies: no symptoms, fever, chills, fatigue, anorexia, drenching sweats, other Allergies: Coded Allergies: No Known Allergies (Unverified , 07/16/17) Subjective Afebrile Objective Vital Signs Last 24 Hour Vital Signs Date Time Temp Pulse Resp B/P (MAP) Pulse Ox O2 Delivery O2 Flow Rate FiO2 07/19/17 13:05 98 28 98 Nasal Cannula 3.0 32 07/19/17 12:54 101 28 95 Nasal Cannula 3.0 32 07/19/17 12:00 98.3 76 19 128/81 07/19/17 08:00 98 Nasal Cannula 3.0 07/19/17 08:00 97.8 96 19 131/79 98 07/19/17 07:42 92 Nasal Cannula 3.0 32 07/19/17 07:42 Nasal Cannula 3.0 32 07/19/17 07:42 94 20 Nasal Cannula 3.0 32 07/19/17 07:42 94 20 92 Nasal Cannula 3.0 32 07/19/17 04:00 97.2 75 24 143/91 98 Nasal Cannula 3.0 07/19/17 04:00 Nasal Cannula 3.0 07/19/17 00:00 Nasal Cannula 3.0 07/19/17 00:00 98.1 87 22 126/81 96 07/18/17 20:38 90 20 98 Nasal Cannula 3.0 32 07/18/17 20:28 96 Nasal Cannula 3.0 32 07/18/17 20:28 Nasal Cannula 3.0 32 07/18/17 20:28 89 20 96 Nasal Cannula 3.0 32 07/18/17 20:28 89 20 Nasal Cannula 3.0 32 07/18/17 20:00 Nasal Cannula 3.0 07/18/17 20:00 99.1 96 22 122/64 98 07/18/17 16:09 85 20 96 Nasal Cannula 3.0 32 07/18/17 16:00 98.2 85 19 137/82 99 Height (Feet): 5 Height (Inches): 8.00 Weight (Pounds): 256 Microbiology Date/Time Source Procedure Growth Status 07/16/17 17:05 Nasopharynx Influenza Types A,B Antigen (PIERRE) - Final Complete Laboratory Tests Test 07/19/17 10:00 White Blood Count 12.2 K/UL (4.8-10.8) H Red Blood Count 4.41 M/UL (4.70-6.10) L Hemoglobin 12.9 G/DL (14.2-18.0) L Hematocrit 41.0 % (42.0-52.0) L Mean Corpuscular Volume 93 FL (80-99) Mean Corpuscular Hemoglobin 29.2 PG (27.0-31.0) Mean Corpuscular Hemoglobin Concent 31.4 G/DL (32.0-36.0) L Red Cell Distribution Width 14.0 % (11.6-14.8) Platelet Count 225 K/UL (150-450) Mean Platelet Volume 7.6 FL (6.5-10.1) Neutrophils (%) (Auto) % (45.0-75.0) Lymphocytes (%) (Auto) % (20.0-45.0) Monocytes (%) (Auto) % (1.0-10.0) Eosinophils (%) (Auto) % (0.0-3.0) Basophils (%) (Auto) % (0.0-2.0) Differential Total Cells Counted 100 Neutrophils % (Manual) 95 % (45-75) H Lymphocytes % (Manual) 4 % (20-45) L Monocytes % (Manual) 1 % (1-10) Eosinophils % (Manual) 0 % (0-3) Basophils % (Manual) 0 % (0-2) Band Neutrophils 0 % (0-8) Platelet Estimate Adequate Platelet Morphology Normal Red Blood Cell Morphology Normal Sodium Level 141 MMOL/L (136-145) Potassium Level 4.4 MMOL/L (3.5-5.1) Chloride Level 105 MMOL/L (98-107) Carbon Dioxide Level 30 MMOL/L (21-32) Anion Gap 6 mmol/L (5-15) Blood Urea Nitrogen 29 mg/dL (7-18) H Creatinine 1.4 MG/DL (0.55-1.30) H Estimat Glomerular Filtration Rate 50.7 mL/min (>60) Glucose Level 130 MG/DL (74-106) H Calcium Level 8.3 MG/DL (8.5-10.1) L Phosphorus Level 3.9 MG/DL (2.5-4.9) Magnesium Level 2.6 MG/DL (1.8-2.4) H Current Medications Medications (Trade) Dose Ordered Sig/Hi Route PRN Reason Start Time Stop Time Status Last Admin Dose Admin Albuterol/ Ipratropium (Albuterol/ Ipratropium) 3 ml Q4H PRN HHN Shortness of Breath 07/18/17 15:30 07/22/17 15:29 07/19/17 12:54 Albuterol/ Ipratropium (Albuterol/ Ipratropium) 3 ml Q8HR HHN 07/19/17 14:00 07/24/17 13:59 Alprazolam (Xanax) 1 mg BIDPRN PRN ORAL For Anxiety 07/18/17 15:30 07/25/17 15:29 07/18/17 20:41 Aripiprazole (Abilify) 10 mg DAILY ORAL 07/19/17 09:00 08/15/17 08:59 07/19/17 08:48 Azithromycin 500 mg/Dextrose 275 ml @ 275 mls/hr Q24HRS IV 07/18/17 18:00 07/22/17 18:01 07/18/17 18:22 Dextrose (Dextrose 50%) STAT PRN IV Hypoglycemia 07/18/17 15:30 08/17/17 15:29 Duloxetine HCl (Cymbalta) 60 mg DAILY ORAL 07/19/17 09:00 08/15/17 08:59 07/19/17 08:48 Heparin Sodium (Porcine) (Heparin 5000 units/ml) 5,000 units EVERY 12 HOURS SUBQ 07/18/17 21:00 08/15/17 08:59 07/19/17 08:58 Ketorolac Tromethamine (Toradol 30mg) 30 mg Q8H PRN IV Moderate Pain (Pain Scale 4-6) 07/18/17 15:30 07/23/17 15:29 Lamotrigine (LaMICtal) 100 mg Q12HR ORAL 07/18/17 21:00 08/17/17 20:59 07/19/17 08:48 Methylprednisolone Sodium Succinate (Solu-MEDROL) 60 mg EVERY 8 HOURS IV 07/19/17 22:00 08/15/17 21:59 Morphine Sulfate (Morphine Sulfate) 2 mg Q4H PRN IVP Severe Pain (Pain Scale 7-10) 07/18/17 15:30 07/25/17 15:29 Nitroglycerin (Ntg) 0.4 mg Q5M X 3 DOSES PRN SL Prn Chest Pain 07/18/17 15:00 08/15/17 06:29 Ondansetron HCl (Zofran) 4 mg Q6H PRN IVP Nausea & Vomiting 07/18/17 15:30 08/15/17 15:29 Promethazine HCl/ Codeine (Phenergan with Codeine) 5 ml Q6H PRN ORAL cough 07/18/17 15:30 08/17/17 15:29 07/19/17 12:47 Temazepam (Restoril) 15 mg HSPRN PRN ORAL Insomnia 07/18/17 21:00 07/25/17 20:59 07/19/17 03:57 Theophylline (Maik-Dur) 100 mg EVERY 12 HOURS ORAL 07/18/17 21:00 08/15/17 08:59 07/19/17 08:49 ELZA ROJAS M.D. Jul 19, 2017 14:32
[2017-07-19 16:00] VITALS: BP_SYST 121; BP_SYST 136; BP_DIAS 65; BP_DIAS 77
--- NOTE | 2017-07-19 16:30 | Progress Note ---
SUBJECTIVE: The patient is calm and cooperative. No behavior issues at this time. Less anxious. Mood is neutral. Affect is constricted, congruent with mood. Thought process is concrete. Thought content, no suicidal or homicidal ideation. Not delusional. Insight and judgment is fair. ASSESSMENT: The patient stabilized, less anxiety. PLAN: We will continue to follow and readjust the medications. Rina Damon M.D. DR: CINDY JOB#: [id number] CC:
[2017-07-19] MEDS: Azithromycin 500 MG in D5W 275 ML IV SCH (17:31)
--- NOTE | 2017-07-19 18:15 | General Progress Note ---
Assessment/Plan Problem List: (1) Acute asthma exacerbation ICD Codes: J45.901 - Unspecified asthma with (acute) exacerbation SNOMED: 055193247 (2) Viral URI vs bronchitis (3) Acute respiratory failure with hypoxia ICD Codes: J96.01 - Acute respiratory failure with hypoxia SNOMED: 56635988, 206902216 (4) Morbid obesity ICD Codes: E66.01 - Morbid (severe) obesity due to excess calories SNOMED: 505636348, 22091125647083 (5) severe KAYLEE (6) NOEMÍ (acute kidney injury) ICD Codes: N17.9 - Acute kidney failure, unspecified SNOMED: 55486851 (7) NPH (normal pressure hydrocephalus) ICD Codes: G91.2 - (Idiopathic) normal pressure hydrocephalus SNOMED: 49215231 (8) Anxiety ICD Codes: F41.9 - Anxiety disorder, unspecified SNOMED: 51259348 (9) Bipolar disorder ICD Codes: F31.9 - Bipolar disorder, unspecified SNOMED: 18860803 (10) Depression ICD Codes: F32.9 - Major depressive disorder, single episode, unspecified SNOMED: 42494668 Status: stable Assessment/Plan Appreciate pulmonary, ID, psych, neuro rec's Cont abx per ID: azithro + zosyn Cont steroids per pulm Cont nebs ATC and PRN Cont O2 and wean off as tolerated Cont CPAP at [id number] qHS Cont home meds Trend CBC, BMP PT eval Possible transfer to [facility] per pt request vs d/c home in 1-2 days pending further improvement DVT Prophylaxis: SCD, HSQ Code Status: Full Hospital Classification Declaration: Based on this initial evaluation, and depending on the patient's clinical course, I anticipate that this patient will require hospitalization for 1-2 days for acute asthma exacerbation and close respiratory/hemodynamic monitoring. Disposition: Once the patient is stable to leave the hospital, I anticipate the patient will likely be discharged to the following environment: home with HH + CG vs SNF Discussed with patient/family, nursing staff, SW/CM, pulm regarding clinical status, treatment course, and disposition planning. D/w pt's caregiver regarding mgmt and dispo Subjective Date patient seen: Jul 19, 2017 Time patient seen: 15:00 ROS Limited/Unobtainable: No Constitutional: Reports: no symptoms HEENT: Reports: no symptoms Cardiovascular: Reports: no symptoms Respiratory: Reports: cough, shortness of breath Gastrointestinal/Abdominal: Reports: no symptoms Genitourinary: Reports: no symptoms Neurologic/Psychiatric: Reports: no symptoms Endocrine: Reports: no symptoms Hematologic/Lymphatic: Reports: no symptoms Allergies: Coded Allergies: No Known Allergies (Unverified , 07/16/17) All Systems: reviewed and negative except above Subjective No acute o/n events Sitting up in chair this AM. Cont w/ cough, congestion, SOB/wheezing Objective Last 24 Hour Vital Signs Date Time Temp Pulse Resp B/P (MAP) Pulse Ox O2 Delivery O2 Flow Rate FiO2 07/19/17 16:00 98.2 86 19 121/65 98 07/19/17 13:05 98 28 98 Nasal Cannula 3.0 32 07/19/17 12:54 101 28 95 Nasal Cannula 3.0 32 07/19/17 12:00 98.3 76 19 128/81 07/19/17 08:00 98 Nasal Cannula 3.0 07/19/17 08:00 97.8 96 19 131/79 98 07/19/17 07:42 92 Nasal Cannula 3.0 32 07/19/17 07:42 Nasal Cannula 3.0 32 07/19/17 07:42 94 20 Nasal Cannula 3.0 32 07/19/17 07:42 94 20 92 Nasal Cannula 3.0 32 07/19/17 04:00 97.2 75 24 143/91 98 Nasal Cannula 3.0 07/19/17 04:00 Nasal Cannula 3.0 07/19/17 00:00 Nasal Cannula 3.0 07/19/17 00:00 98.1 87 22 126/81 96 07/18/17 20:38 90 20 98 Nasal Cannula 3.0 32 07/18/17 20:28 96 Nasal Cannula 3.0 32 07/18/17 20:28 Nasal Cannula 3.0 32 07/18/17 20:28 89 20 96 Nasal Cannula 3.0 32 07/18/17 20:28 89 20 Nasal Cannula 3.0 32 07/18/17 20:00 Nasal Cannula 3.0 07/18/17 20:00 99.1 96 22 122/64 98 Intake and Output 07/19/17 07/20/17 19:00 07:00 # Voids 4 # Bowel Movements 3 Laboratory Tests 07/19/17 10:00: White Blood Count 12.2H, Red Blood Count 4.41L, Hemoglobin 12.9L, Hematocrit 41.0L, Mean Corpuscular Volume 93, Mean Corpuscular Hemoglobin 29.2, Mean Corpuscular Hemoglobin Concent 31.4L, Red Cell Distribution Width 14.0, Platelet Count 225, Mean Platelet Volume 7.6, Neutrophils (%) (Auto) , Lymphocytes (%) (Auto) , Monocytes (%) (Auto) , Eosinophils (%) (Auto) , Basophils (%) (Auto) , Differential Total Cells Counted 100, Neutrophils % ( Manual) 95H, Lymphocytes % (Manual) 4L, Monocytes % (Manual) 1, Eosinophils % ( Manual) 0, Basophils % (Manual) 0, Band Neutrophils 0, Platelet Estimate Adequate, Platelet Morphology Normal, Red Blood Cell Morphology Normal, Sodium Level 141, Potassium Level 4.4, Chloride Level 105, Carbon Dioxide Level 30, Anion Gap 6, Blood Urea Nitrogen 29H, Creatinine 1.4H, Estimat Glomerular Filtration Rate 50.7, Glucose Level 130H, Calcium Level 8.3L, Phosphorus Level 3.9, Magnesium Level 2.6H Height (Feet): 5 Height (Inches): 8.00 Weight (Pounds): 256 Objective General: alert, cooperative, no distress, appears stated age, obese Head: normocephalic, without obvious abnormality, atraumatic Eyes: conjunctivae/corneas clear. PERRL, EOM's intact Throat: lips, mucosa, and tongue normal. MMM Neck: supple, symmetrical, trachea midline, and no JVD Lungs: +wheezing b/l, decreased breath sounds b/l Heart: regular rate and rhythm, S1, S2 normal, no murmur, click, rub or gallop Abdomen: soft, non-tender, non-distended, bowel sounds normal; obese abd Extremities: extremities normal, atraumatic, no cyanosis, trace BLE edema Pulses: 2+ and symmetric Skin: skin color, texture, turgor normal; no rashes or lesions Neurologic: grossly normal, no focal deficits Ulysses Boyer M.D. Jul 19, 2017 18:15
[2017-07-19 20:00] VITALS: BP 135/80
[2017-07-19] MEDS: ALPRAZolam 0.5mg tab ORAL PRN (20:24)
[2017-07-20] VITALS (11 sets, daily range): BP systolic 114–157; BP diastolic 62–96
[2017-07-20] MEDS: Solu-MEDROL 125mg Inj IV SCH ×3 (06:00→21:30)
[2017-07-20] MEDS: Albuterol/Ipratropium 3ml neb HHN SCH ×3 (07:31→23:52)
--- NOTE | 2017-07-20 07:38 | Pulmonolgy Critical Care Note ---
Critical Care - Asmt/Plan Assessment/Plan: ASSESSMENT Acute hypercapnic respiratory failure requiring BiPAP acute asthma/COPD exacerbation possible PNA possible URI acute kidney injury vs CRI lactic acidosis bipolar disorder probable NPH morbid obesity possible KAYLEE PLAN OF CARE ICU off BiPAP titrate FiO2 to keep sat above 92% ABG better this am , acidosis and hypercapnia resolved with BiPAP BiPAP at HS and prn, likely KAYLEE currently ok for o2 via NC, improving Pulmonary toilet: HHN and CPT IV steroids and taper Empiric abx Sputum cx if able trial of theophylline a/tussive prn leukocytosis likely reactive due to steroids CXR negative, fup CXR today influenza screen test negative DVT prophylaxis Monitor renal parameters, lytes,avoid nephrotoxic likely KAYLEE, recommend sleep study as outpatient PT eval and Rx, get OOB as tolerated psych follows psych medication regimen optimized neuro follows patient in the process of seeing neurosurgery for probable ventriculoperitoneal shunting, surgery tentatively scheduled for 07/31 transfer to [facility] case discussed and evaluated by supervising physician Critical Care - Objective Last 24 Hour Vital Signs Date Time Temp Pulse Resp B/P (MAP) Pulse Ox O2 Delivery O2 Flow Rate FiO2 07/20/17 06:45 79 24 97 07/20/17 05:06 81 26 96 Facial 30 07/20/17 04:00 97.0 87 24 141/81 97 Bi-pap 07/20/17 03:37 87 23 93 Facial 30 07/20/17 01:30 76 26 148/81 94 Bi-pap 07/20/17 01:00 96 25 94 Facial 30 07/20/17 00:55 92 27 93 Facial 30 07/20/17 00:05 98 19 93 Facial 30 07/20/17 00:00 97.9 74 24 149/77 97 Nasal Cannula 3.0 07/19/17 22:53 101 26 97 Nasal Cannula 3.0 32 07/19/17 22:45 84 24 94 Nasal Cannula 3.0 32 07/19/17 20:00 97.2 81 20 135/80 96 Room Air 3.0 07/19/17 19:10 Nasal Cannula 3.0 32 07/19/17 19:10 78 18 Nasal Cannula 3.0 32 07/19/17 19:10 96 Nasal Cannula 3.0 32 07/19/17 16:00 98.2 86 19 121/65 98 07/19/17 16:00 98 Nasal Cannula 3.0 07/19/17 13:05 98 28 98 Nasal Cannula 3.0 32 07/19/17 12:54 101 28 95 Nasal Cannula 3.0 32 07/19/17 12:00 99 Nasal Cannula 3.0 07/19/17 12:00 98.3 76 19 128/81 99 07/19/17 08:00 98 Nasal Cannula 3.0 07/19/17 08:00 97.8 96 19 131/79 98 07/19/17 07:42 92 Nasal Cannula 3.0 32 07/19/17 07:42 Nasal Cannula 3.0 32 07/19/17 07:42 94 20 Nasal Cannula 3.0 32 07/19/17 07:42 94 20 92 Nasal Cannula 3.0 32 Objective: General Appearance: obese male in NAD HEENT: normocephalic, atraumatic, anicteric, O2 via NC Respiratory/Chest: rhonchi - isolated rhonchi at bases , scattered expiratory wheezes Cardiovascular: normal rate, regular rhythm, SR on tele Abdomen: normal bowel sounds, soft, non tender - obese Extremities: no edema, pedal pulses normal Neurologic/Psychiatric: abnormal gait, alert, oriented x 3, responsive Musculoskeletal: normal muscle bulk Critical Care - Subjective ROS Limited/Unobtainable: Yes Interval Events: transferred last night to ICU due to respiratory distress ABG with evidence of hypercapnia and mild acidosis placed on BiPAP over night this am off BiPAP on O2 via NC no signs of distress Condition: improving IV Access: peripheral EKG Rhythm: Sinus Rhythm FI02: 30 Sputum Amount: Moderate CXR: No acute process Griselda Siddiqui NP (Vanchtein) Jul 20, 2017 07:38
[2017-07-20] MEDS ORDERED: ALPRAZolam 0.5mg tab ORAL PRN (08:00)
[2017-07-20] MEDS ORDERED: Nitroglycerin Subl 0.4mg tab SL PRN ×2 (08:00→13:30)
[2017-07-20] MEDS ORDERED: Ketorolac 30mg Inj IV PRN ×2 (08:30→14:30)
[2017-07-20] MEDS ORDERED: Morphine Sulfate 2mg/ml Inj IVP PRN ×2 (08:30→14:30)
[2017-07-20] MEDS ORDERED: Albuterol/Ipratropium 3ml neb HHN PRN ×3 (08:30→14:30)
[2017-07-20] MEDS ORDERED: Promethazine/Codeine 5ml UD ORAL PRN ×2 (08:30→14:30)
[2017-07-20] MEDS ORDERED: Heparin 5000 units/ml inj SUBQ SCH (09:00)
[2017-07-20] MEDS ORDERED: DULoxetine 30mg cap ORAL SCH (09:00)
[2017-07-20] MEDS ORDERED: Theophylline ER 100mg ORAL SCH (09:00)
[2017-07-20] MEDS ORDERED: ARIPiprazole 10mg tab ORAL SCH (09:00)
[2017-07-20 10:26] LABS: HEMATOCRIT 40.3 % (42.0-52.0); HEMOGLOBIN 13.1 G/DL (14.2-18.0); LYMPHOCYTES % (AUTO) 11.5 % (20.0-45.0); MEAN CORPUSCULAR VOLUME 92 FL (80-99); MONOCYTES % (AUTO) 5.5 % (1.0-10.0); NEUTROPHILS % (AUTO) 82.1 % (45.0-75.0); PLATELET COUNT 180 K/UL (150-450); RED BLOOD COUNT 4.36 M/UL (4.70-6.10); RED CELL DISTRIBUTION WIDTH 13.9 % (11.6-14.8); WHITE BLOOD COUNT 12.1 K/UL (4.8-10.8)
[2017-07-20 10:36] LABS: ANION GAP 6 mmol/L (5-15); BLOOD UREA NITROGEN 29 mg/dL (7-18); CALCIUM 8.2 MG/DL (8.5-10.1); CARBON DIOXIDE 31 MMOL/L (21-32); CHLORIDE 103 MMOL/L (98-107); CREATININE 1.2 MG/DL (0.55-1.30); POTASSIUM 4.5 MMOL/L (3.5-5.1); SODIUM 140 MMOL/L (136-145)
[2017-07-20] MEDS ORDERED: Solu-MEDROL 125mg Inj IV SCH (14:00)
--- NOTE | 2017-07-20 14:04 | Infectious Diseases Prog Note ---
Assessment/Plan Assessment/Plan ASSESSMENT: The patient is a 67-year-old male with: Leukocytosis ( on steroids ) Asthma exacerbation Possible pneumonia Cxray : NAPD Viral upper respiratory tract infection, Rapid influenza test: Neg Asthma. Bipolar disorder. Depression. PLAN: continue the patient on Zithromax d# 5 / 7 on Solu-Medrol / SP Zosyn d# 3 Blood culture. Sputum culture. Monitor chest x-ray. 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, surgery tentatively scheduled for 07/31 Subjective Constitutional: Denies: no symptoms, fever, chills, fatigue, anorexia, drenching sweats, other Allergies: Coded Allergies: No Known Allergies (Unverified , 07/16/17) Subjective Afebrile Objective Vital Signs Last 24 Hour Vital Signs Date Time Temp Pulse Resp B/P (MAP) Pulse Ox O2 Delivery O2 Flow Rate FiO2 07/20/17 12:31 82 23 95 07/20/17 12:00 98.4 75 20 149/88 96 Nasal Cannula 3.0 07/20/17 11:11 73 24 96 07/20/17 11:00 74 21 134/96 96 Nasal Cannula 3.0 07/20/17 10:00 78 21 127/62 96 Nasal Cannula 3.0 07/20/17 09:09 75 23 96 07/20/17 09:00 74 22 119/69 96 Nasal Cannula 3.0 07/20/17 08:00 85 21 114/79 97 Nasal Cannula 3.0 07/20/17 08:00 80 07/20/17 07:40 83 23 97 Nasal Cannula 4.0 36 07/20/17 07:31 80 22 96 Nasal Cannula 4.0 36 07/20/17 07:00 98.5 80 24 157/68 98 Bi-pap 30 07/20/17 06:45 79 24 97 07/20/17 05:06 81 26 96 Facial 30 07/20/17 04:00 97.0 87 24 141/81 97 Bi-pap 07/20/17 03:37 87 23 93 Facial 30 07/20/17 01:30 76 26 148/81 94 Bi-pap 07/20/17 01:00 96 25 94 Facial 30 07/20/17 00:55 92 27 93 Facial 30 07/20/17 00:05 98 19 93 Facial 30 07/20/17 00:00 97.9 74 24 149/77 97 Nasal Cannula 3.0 07/19/17 22:53 101 26 97 Nasal Cannula 3.0 32 07/19/17 22:45 84 24 94 Nasal Cannula 3.0 32 07/19/17 20:00 97.2 81 20 135/80 96 Room Air 3.0 07/19/17 19:10 Nasal Cannula 3.0 32 07/19/17 19:10 78 18 Nasal Cannula 3.0 32 07/19/17 19:10 96 Nasal Cannula 3.0 32 07/19/17 16:00 98.2 86 19 121/65 98 07/19/17 16:00 98 Nasal Cannula 3.0 Height (Feet): 5 Height (Inches): 8.00 Weight (Pounds): 256 HEENT: mucous membranes moist Respiratory/Chest: respiratory distress Cardiovascular: regularly irregular Abdomen: no organomegaly Laboratory Tests Test 07/19/17 18:10 07/20/17 00:55 07/20/17 09:00 07/20/17 10:00 Arterial Blood pH 7.402 (7.350-7.450) 7.340 (7.350-7.450) 7.442 (7.350-7.450) Arterial Blood Partial Pressure CO2 44.0 mmHg (35.0-45.0) 59.4 mmHg (35.0-45.0) *H 42.8 mmHg (35.0-45.0) Arterial Blood Partial Pressure O2 91.4 mmHg (75.0-100.0) 84.3 mmHg (75.0-100.0) 101.5 mmHg (75.0-100.0) H Arterial Blood HCO3 26.8 mmol/L (22.0-26.0) H 31.5 mmol/L (22.0-26.0) H 28.5 mmol/L (22.0-26.0) H Arterial Blood Oxygen Saturation 96.3 % (92.0-98.0) 94.8 % (92.0-98.0) 97.3 % (92.0-98.0) Arterial Blood Base Excess 1.7 4.2 4.0 Kaiden Test Positive Positive Positive White Blood Count 12.1 K/UL (4.8-10.8) H Red Blood Count 4.36 M/UL (4.70-6.10) L Hemoglobin 13.1 G/DL (14.2-18.0) L Hematocrit 40.3 % (42.0-52.0) L Mean Corpuscular Volume 92 FL (80-99) Mean Corpuscular Hemoglobin 30.1 PG (27.0-31.0) Mean Corpuscular Hemoglobin Concent 32.6 G/DL (32.0-36.0) Red Cell Distribution Width 13.9 % (11.6-14.8) Platelet Count 180 K/UL (150-450) Mean Platelet Volume 7.2 FL (6.5-10.1) Neutrophils (%) (Auto) 82.1 % (45.0-75.0) H Lymphocytes (%) (Auto) 11.5 % (20.0-45.0) L Monocytes (%) (Auto) 5.5 % (1.0-10.0) Eosinophils (%) (Auto) 0.0 % (0.0-3.0) Basophils (%) (Auto) 1.0 % (0.0-2.0) Sodium Level 140 MMOL/L (136-145) Potassium Level 4.5 MMOL/L (3.5-5.1) Chloride Level 103 MMOL/L (98-107) Carbon Dioxide Level 31 MMOL/L (21-32) Anion Gap 6 mmol/L (5-15) Blood Urea Nitrogen 29 mg/dL (7-18) H Creatinine 1.2 MG/DL (0.55-1.30) Estimat Glomerular Filtration Rate > 60 mL/min (>60) Glucose Level 120 MG/DL (74-106) H Calcium Level 8.2 MG/DL (8.5-10.1) L Current Medications Medications (Trade) Dose Ordered Sig/Hi Route PRN Reason Start Time Stop Time Status Last Admin Dose Admin Albuterol/ Ipratropium (Albuterol/ Ipratropium) 3 ml Q4H PRN HHN Shortness of Breath 07/20/17 16:00 07/22/17 11:59 UNV Albuterol/ Ipratropium (Albuterol/ Ipratropium) 3 ml Q8HRT HHN 07/20/17 15:00 07/25/17 14:59 UNV Alprazolam (Xanax) 1 mg BIDPRN PRN ORAL For Anxiety 07/20/17 18:00 07/27/17 17:59 Aripiprazole (Abilify) 10 mg DAILY ORAL 07/21/17 09:00 08/15/17 08:59 Azithromycin 500 mg/Dextrose 275 ml @ 275 mls/hr Q24HRS IV 07/20/17 18:00 07/22/17 18:01 Dextrose (Dextrose 50%) STAT PRN IV Hypoglycemia 07/21/17 08:00 08/17/17 07:59 UNV Duloxetine HCl (Cymbalta) 60 mg DAILY ORAL 07/21/17 09:00 08/15/17 08:59 UNV Heparin Sodium (Porcine) (Heparin 5000 units/ml) 5,000 units EVERY 12 HOURS SUBQ 07/20/17 21:00 08/15/17 08:59 UNV Ketorolac Tromethamine (Toradol 30mg) 30 mg Q8H PRN IV Moderate Pain (Pain Scale 4-6) 07/20/17 16:30 07/23/17 08:29 UNV Lamotrigine (LaMICtal) 100 mg Q12HR ORAL 07/20/17 21:00 08/17/17 20:59 UNV Methylprednisolone Sodium Succinate (Solu-MEDROL) 60 mg EVERY 8 HOURS IV 07/20/17 14:00 08/15/17 21:59 UNV Morphine Sulfate (Morphine Sulfate) 2 mg Q4H PRN IVP Severe Pain (Pain Scale 7-10) 07/20/17 16:30 07/25/17 08:29 UNV Nitroglycerin (Ntg) 0.4 mg Q5M X 3 DOSES PRN SL Prn Chest Pain 07/20/17 13:30 08/15/17 07:59 UNV Ondansetron HCl (Zofran) 4 mg Q6H PRN IVP Nausea & Vomiting 07/20/17 14:30 08/15/17 08:29 UNV Promethazine HCl/ Codeine (Phenergan with Codeine) 5 ml Q6H PRN ORAL cough 07/20/17 14:30 08/17/17 08:29 UNV Temazepam (Restoril) 15 mg HSPRN PRN ORAL Insomnia 07/20/17 21:00 12/21/17 20:59 UNV Theophylline (Maik-Dur) 100 mg EVERY 12 HOURS ORAL 07/20/17 21:00 08/15/17 08:59 ELZA ALVAREZ M.D. Jul 20, 2017 14:04
[2017-07-20] MEDS ORDERED: Albuterol/Ipratropium 3ml neb HHN SCH (15:00)
[2017-07-20] MEDS ORDERED: Tubing IV Secondary IV ONE (16:20)
[2017-07-20] MEDS ORDERED: NS 500ML ONE (16:20)
--- NOTE | 2017-07-20 17:59 | General Progress Note ---
Aleta Casiano N.P. 07/20/17 1759: Assessment/Plan Problem List: (1) Morbid obesity ICD Codes: E66.01 - Morbid (severe) obesity due to excess calories SNOMED: 988473890, 58455024506888 (2) History of asthma ICD Codes: Z87.09 - Personal history of other diseases of the respiratory system SNOMED: 760588064 (3) Acute asthma exacerbation ICD Codes: J45.901 - Unspecified asthma with (acute) exacerbation SNOMED: 860202673 Qualifiers: Qualified Codes: J45.21 - Mild intermittent asthma with (acute) exacerbation (4) Dyspnea ICD Codes: R06.00 - Dyspnea, unspecified SNOMED: 847802790 (5) Respiratory distress ICD Codes: R06.03 - Acute respiratory distress SNOMED: 570691761 (6) Anxiety ICD Codes: F41.9 - Anxiety disorder, unspecified SNOMED: 78009602 (7) NPH (normal pressure hydrocephalus) ICD Codes: G91.2 - (Idiopathic) normal pressure hydrocephalus SNOMED: 03407979 (8) Asthma ICD Codes: J45.909 - Unspecified asthma, uncomplicated SNOMED: 449828119 Qualifiers: (9) lives at home with caregiver (10) Acute respiratory failure with hypoxia ICD Codes: J96.01 - Acute respiratory failure with hypoxia SNOMED: 07285506, 112633769 (11) severe KAYLEE (12) Bipolar disorder ICD Codes: F31.9 - Bipolar disorder, unspecified SNOMED: 82848793 Qualifiers: Qualified Codes: F31.32 - Bipolar disorder, current episode depressed, moderate (13) Depression ICD Codes: F32.9 - Major depressive disorder, single episode, unspecified SNOMED: 09855632 Qualifiers: Qualified Codes: F32.1 - Major depressive disorder, single episode, moderate (14) NOEMÍ (acute kidney injury) ICD Codes: N17.9 - Acute kidney failure, unspecified SNOMED: 02661650 (15) Viral URI vs bronchitis (16) History of craniotomy ICD Codes: Z98.890 - Other specified postprocedural states SNOMED: 44876331, 979004644 Status: progressing Assessment/Plan Appreciate pulmonary, ID, psych, neuro rec's Trial of theophylline per pulm Cont abx per ID: azithro + zosyn Cont steroids per pulm Cont nebs ATC and PRN Cont O2 and wean off as tolerated Cont CPAP at [id number] qHS Cont home meds Trend CBC, BMP PT eval Possible transfer to [facility] per pt request vs d/c home in 1-2 days pending further improvement DVT Prophylaxis: SCD, HSQ Code Status: Full Hospital Classification Declaration: Based on this initial evaluation, and depending on the patient's clinical course, I anticipate that this patient will require hospitalization for 1-2 days for acute asthma exacerbation and close respiratory/hemodynamic monitoring. Disposition: Once the patient is stable to leave the hospital, I anticipate the patient will likely be discharged to the following environment: home with HH + CG vs SNF Discussed with patient/family, nursing staff, SW/CM, pulm regarding clinical status, treatment course, and disposition planning. D/w pt's caregiver regarding mgmt and dispo Subjective Date patient seen: Jul 20, 2017 Allergies: Coded Allergies: No Known Allergies (Unverified , 07/16/17) Subjective Patient transferred overnight to ICU given severe respiratory distress and placed on Bipap. Did well this AM so transferred back to [facility] and now off of Bipap. Patient reports feeling better than yesterday. Continues to endorse shortness of breath and cough. Denies chest pain, f/c. Started on trial of theophylline. AF, HDS. Objective Last 24 Hour Vital Signs Date Time Temp Pulse Resp B/P (MAP) Pulse Ox O2 Delivery O2 Flow Rate FiO2 07/20/17 16:00 96.8 89 19 138/82 98 Nasal Cannula 3.0 07/20/17 15:24 78 22 97 Nasal Cannula 3.0 32 07/20/17 15:14 75 23 95 Nasal Cannula 3.0 32 07/20/17 13:10 85 07/20/17 12:31 82 23 95 07/20/17 12:00 98.4 75 20 149/88 96 Nasal Cannula 3.0 07/20/17 11:11 73 24 96 07/20/17 11:00 74 21 134/96 96 Nasal Cannula 3.0 07/20/17 10:00 78 21 127/62 96 Nasal Cannula 3.0 07/20/17 09:09 75 23 96 07/20/17 09:00 74 22 119/69 96 Nasal Cannula 3.0 07/20/17 08:00 85 21 114/79 97 Nasal Cannula 3.0 07/20/17 08:00 80 07/20/17 07:40 83 23 97 Nasal Cannula 4.0 36 07/20/17 07:31 80 22 96 Nasal Cannula 4.0 36 07/20/17 07:00 98.5 80 24 157/68 98 Bi-pap 30 07/20/17 06:45 79 24 97 07/20/17 05:06 81 26 96 Facial 30 07/20/17 04:00 97.0 87 24 141/81 97 Bi-pap 07/20/17 03:37 87 23 93 Facial 30 07/20/17 01:30 76 26 148/81 94 Bi-pap 07/20/17 01:00 96 25 94 Facial 30 07/20/17 00:55 92 27 93 Facial 30 07/20/17 00:05 98 19 93 Facial 30 07/20/17 00:00 97.9 74 24 149/77 97 Nasal Cannula 3.0 07/19/17 22:53 101 26 97 Nasal Cannula 3.0 32 07/19/17 22:45 84 24 94 Nasal Cannula 3.0 32 07/19/17 20:00 97.2 81 20 135/80 96 Room Air 3.0 07/19/17 19:10 Nasal Cannula 3.0 32 07/19/17 19:10 78 18 Nasal Cannula 3.0 32 07/19/17 19:10 96 Nasal Cannula 3.0 32 Intake and Output 07/20/17 07/21/17 19:00 07:00 Intake Total 450 ml Balance 450 ml Intake Oral 450 ml # Bowel Movements 3 Laboratory Tests 07/19/17 18:10: Arterial Blood pH 7.402, Arterial Blood Partial Pressure CO2 44.0, Arterial Blood Partial Pressure O2 91.4, Arterial Blood HCO3 26.8H, Arterial Blood Oxygen Saturation 96.3, Arterial Blood Base Excess 1.7, Kaiden Test Positive 07/20/17 00:55: Arterial Blood pH 7.340L, Arterial Blood Partial Pressure CO2 59.4*H, Arterial Blood Partial Pressure O2 84.3, Arterial Blood HCO3 31.5H, Arterial Blood Oxygen Saturation 94.8, Arterial Blood Base Excess 4.2, Kaiden Test Positive 07/20/17 09:00: Arterial Blood pH 7.442, Arterial Blood Partial Pressure CO2 42.8, Arterial Blood Partial Pressure O2 101.5H, Arterial Blood HCO3 28.5H, Arterial Blood Oxygen Saturation 97.3, Arterial Blood Base Excess 4.0, Kaiden Test Positive 07/20/17 10:00: White Blood Count 12.1H, Red Blood Count 4.36L, Hemoglobin 13.1L, Hematocrit 40.3L, Mean Corpuscular Volume 92, Mean Corpuscular Hemoglobin 30.1, Mean Corpuscular Hemoglobin Concent 32.6, Red Cell Distribution Width 13.9, Platelet Count 180, Mean Platelet Volume 7.2, Neutrophils (%) (Auto) 82.1H, Lymphocytes ( %) (Auto) 11.5L, Monocytes (%) (Auto) 5.5, Eosinophils (%) (Auto) 0.0, Basophils (%) (Auto) 1.0, Sodium Level 140, Potassium Level 4.5, Chloride Level 103, Carbon Dioxide Level 31, Anion Gap 6, Blood Urea Nitrogen 29H, Creatinine 1.2, Estimat Glomerular Filtration Rate > 60, Glucose Level 120H, Calcium Level 8.2L Height (Feet): 5 Height (Inches): 8.00 Weight (Pounds): 256 General Appearance: alert, mild distress EENT: PERRL/EOMI Neck: non-tender, normal alignment Cardiovascular: normal peripheral pulses, normal rate, regular rhythm Respiratory/Chest: chest wall non-tender, other - +wheezing throughout lung partida, +rhonchi Abdomen: normal bowel sounds, non tender, soft Extremities: normal range of motion Neurologic: manager photography II-XII grossly normal, no motor/sensory deficits, alert, oriented x 3 АНДРЕЙ RUIZ 09/17/17 1513: Assessment/Plan Problem List: (1) Acute asthma exacerbation ICD Codes: J45.901 - Unspecified asthma with (acute) exacerbation SNOMED: 456352647 Qualifiers: Qualified Codes: J45.21 - Mild intermittent asthma with (acute) exacerbation (2) Asthma ICD Codes: J45.909 - Unspecified asthma, uncomplicated SNOMED: 454395581 Qualifiers: (3) Depression ICD Codes: F32.9 - Major depressive disorder, single episode, unspecified SNOMED: 26733333 Qualifiers: Qualified Codes: F32.1 - Major depressive disorder, single episode, moderate (4) Bipolar disorder ICD Codes: F31.9 - Bipolar disorder, unspecified SNOMED: 94524005 Qualifiers: Qualified Codes: F31.32 - Bipolar disorder, current episode depressed, moderate (5) severe KAYLEE Status: stable, progressing Assessment/Plan respiratory treatment check sputum titrate fio2 check clutures dvt prophylaxis. Subjective Date patient seen: Sep 17, 2017 ROS Limited/Unobtainable: No Constitutional: Reports: weakness HEENT: Reports: no symptoms Respiratory: Reports: no symptoms Gastrointestinal/Abdominal: Reports: no symptoms Genitourinary: Reports: no symptoms Neurologic/Psychiatric: Reports: no symptoms Endocrine: Reports: no symptoms, increased thirst Hematologic/Lymphatic: Reports: no symptoms Allergies: Coded Allergies: No Known Allergies (Unverified , 07/16/17) Objective General Appearance: no apparent distress EENT: PERRL/EOMI, normal ENT inspection Neck: non-tender, supple Cardiovascular: normal rate, regularly irregular Respiratory/Chest: chest wall non-tender, no respiratory distress, respiratory distress Abdomen: non tender Pelvis: normal external exam, normal rectal exam Genitourinary/Rectal: normal genital exam, normal rectal exam Extremities: normal range of motion, non-tender Neurologic: manager photography II-XII grossly normal, no motor/sensory deficits Aleta Casiano N.P. Jul 20, 2017 17:59 АНДРЕЙ RUIZ Sep 17, 2017 15:13
[2017-07-20] MEDS ORDERED: Azithromycin 500 MG in D5W 275 ML IV SCH (18:00)
[2017-07-20] MEDS: Azithromycin 500 MG in D5W 275 ML IV SCH (18:35)
[2017-07-20] MEDS: Theophylline ER 100mg ORAL SCH (21:30)
[2017-07-20] MEDS: Heparin 5000 units/ml inj SUBQ SCH (21:31)
[2017-07-21] VITALS: BP 133/75
[2017-07-21] MEDS: ALPRAZolam 0.5mg tab ORAL PRN (00:06)
[2017-07-21 04:00] VITALS: BP 138/75
[2017-07-21] MEDS: Solu-MEDROL 125mg Inj IV SCH ×2 (05:24→21:00)
[2017-07-21] MEDS: Albuterol/Ipratropium 3ml neb HHN SCH ×3 (07:41→23:52)
[2017-07-21 07:52] LABS: BASOPHILS % (AUTO) 0.5 % (0.0-2.0); HEMATOCRIT 40.6 % (42.0-52.0); HEMOGLOBIN 13.2 G/DL (14.2-18.0); LYMPHOCYTES % (AUTO) 11.4 % (20.0-45.0); MEAN CORPUSCULAR VOLUME 92 FL (80-99); MONOCYTES % (AUTO) 3.2 % (1.0-10.0); NEUTROPHILS % (AUTO) 84.9 % (45.0-75.0); PLATELET COUNT 213 K/UL (150-450); RED BLOOD COUNT 4.39 M/UL (4.70-6.10); RED CELL DISTRIBUTION WIDTH 13.9 % (11.6-14.8); WHITE BLOOD COUNT 10.2 K/UL (4.8-10.8)
[2017-07-21 08:00] VITALS: BP 132/81
[2017-07-21 08:05] LABS: ANION GAP 5 mmol/L (5-15); BLOOD UREA NITROGEN 27 mg/dL (7-18); CALCIUM 8.1 MG/DL (8.5-10.1); CARBON DIOXIDE 32 MMOL/L (21-32); CHLORIDE 103 MMOL/L (98-107); CREATININE 1.2 MG/DL (0.55-1.30); POTASSIUM 4.8 MMOL/L (3.5-5.1); SODIUM 140 MMOL/L (136-145)
[2017-07-21] MEDS: Theophylline ER 100mg ORAL SCH ×2 (10:18→22:39)
[2017-07-21] MEDS: DULoxetine 30mg cap ORAL SCH (10:18)
[2017-07-21] MEDS: ARIPiprazole 10mg tab ORAL SCH (10:18)
[2017-07-21] MEDS: Heparin 5000 units/ml inj SUBQ SCH ×2 (10:21→22:42)
--- NOTE | 2017-07-21 11:18 | Pulmonology Progress Note ---
Assessment/Plan Assessment/Plan ASSESSMENT Acute hypercapnic respiratory failure requiring BiPAP-resolved acute asthma/COPD exacerbation possible PNA possible URI acute kidney injury vs CRI lactic acidosis bipolar disorder probable NPH morbid obesity possible KAYLEE PLAN OF CARE tele off BiPAP titrate FiO2 to keep sat above 92% ABG was better after BiPAP this am with hypercapnia patient likely have KAYLEE and need BiPAP at night and sleep study as outpatient BiPAP at HS and prn, likely KAYLEE currently on O2 via NC, improving, titrate to keep sat above 92% Pulmonary toilet: HHN and CPT taper IV steroids Empiric abx Sputum cx if able trial of theophylline a/tussive prn leukocytosis was likely reactive due to steroids , resolved CXR negative, fup CXR in am clinically improving influenza screen test negative DVT prophylaxis Monitor renal parameters, lytes,avoid nephrotoxic PT eval and Rx, get OOB as tolerated psych follows psych medication regimen optimized neuro follows patient in the process of seeing neurosurgery for probable ventriculoperitoneal shunting, surgery tentatively scheduled for 07/31 dc plan in 1-2 days case discussed and evaluated by supervising physician Subjective Allergies: Coded Allergies: No Known Allergies (Unverified , 07/16/17) Subjective leukocytosis resolved, afebrile transferred to tele yesterday from ICU ABG this am with mild hypercapnia clinically improving though still some congestion with cough but no SOB, no chest pain, Objective Last 24 Hour Vital Signs Date Time Temp Pulse Resp B/P (MAP) Pulse Ox O2 Delivery O2 Flow Rate FiO2 07/21/17 08:00 82 07/21/17 07:45 80 24 98 Nasal Cannula 3.0 32 07/21/17 07:44 Nasal Cannula 3.0 32 07/21/17 07:44 95 Nasal Cannula 3.0 32 07/21/17 07:36 32 07/21/17 07:36 75 24 95 Nasal Cannula 3.0 32 07/21/17 04:00 30 07/21/17 04:00 97.7 64 24 138/75 93 Room Air 07/21/17 03:37 71 07/21/17 00:00 95 Nasal Cannula 3.0 07/21/17 00:00 82 24 98 Nasal Cannula 3.0 32 07/21/17 00:00 98.1 78 18 133/75 94 Nasal Cannula 07/21/17 00:00 98 Nasal Cannula 3.0 32 07/21/17 00:00 Nasal Cannula 3.0 32 07/20/17 23:51 76 07/20/17 23:50 76 24 97 Nasal Cannula 3.0 32 07/20/17 23:50 32 07/20/17 21:00 30 07/20/17 20:00 95 Nasal Cannula 3.0 07/20/17 20:00 98.2 80 22 139/78 96 Nasal Cannula 07/20/17 19:56 79 07/20/17 16:00 96.8 89 19 138/82 98 Nasal Cannula 3.0 07/20/17 16:00 88 07/20/17 15:24 78 22 97 Nasal Cannula 3.0 32 07/20/17 15:14 75 23 95 Nasal Cannula 3.0 32 07/20/17 13:10 85 07/20/17 12:31 82 23 95 07/20/17 12:00 98.4 75 20 149/88 96 Nasal Cannula 3.0 Objective General Appearance: obese male in NAD , A/A/O x 3 HEENT: normocephalic, atraumatic, anicteric, O2 via NC Respiratory/Chest: few isolated rhonchi at bases , few expiratory wheezes Cardiovascular: normal rate, regular rhythm, SR on tele Abdomen: normal bowel sounds, soft, non tender , obese Extremities: no edema, pedal pulses normal Neurologic/Psychiatric: abnormal gait, alert, oriented x 3, responsive Musculoskeletal: normal muscle bulk Laboratory Tests 07/21/17 06:05: White Blood Count 10.2, Red Blood Count 4.39L, Hemoglobin 13.2L, Hematocrit 40.6L, Mean Corpuscular Volume 92, Mean Corpuscular Hemoglobin 30.2, Mean Corpuscular Hemoglobin Concent 32.6, Red Cell Distribution Width 13.9, Platelet Count 213, Mean Platelet Volume 7.3, Neutrophils (%) (Auto) 84.9H, Lymphocytes ( %) (Auto) 11.4L, Monocytes (%) (Auto) 3.2, Eosinophils (%) (Auto) 0.0, Basophils (%) (Auto) 0.5, Sodium Level 140, Potassium Level 4.8, Chloride Level 103, Carbon Dioxide Level 32, Anion Gap 5, Blood Urea Nitrogen 27H, Creatinine 1.2, Estimat Glomerular Filtration Rate > 60, Glucose Level 107H, Calcium Level 8.1L 07/21/17 09:30: Arterial Blood pH 7.406, Arterial Blood Partial Pressure CO2 51.0H, Arterial Blood Partial Pressure O2 86.8, Arterial Blood HCO3 31.3H, Arterial Blood Oxygen Saturation 95.8, Arterial Blood Base Excess 5.4, Kaiden Test Positive Current Medications Medications (Trade) Dose Ordered Sig/Hi Route PRN Reason Start Time Stop Time Status Last Admin Dose Admin Albuterol/ Ipratropium (Albuterol/ Ipratropium) 3 ml Q4H PRN HHN Shortness of Breath 07/20/17 14:30 07/22/17 14:29 Albuterol/ Ipratropium (Albuterol/ Ipratropium) 3 ml Q8HRT HHN 07/20/17 15:00 07/25/17 14:59 07/21/17 07:41 Alprazolam (Xanax) 1 mg BIDPRN PRN ORAL For Anxiety 07/20/17 18:00 07/27/17 17:59 07/21/17 00:06 Aripiprazole (Abilify) 10 mg DAILY ORAL 07/21/17 09:00 08/15/17 08:59 07/21/17 10:18 Azithromycin 500 mg/Dextrose 275 ml @ 275 mls/hr Q24HRS IV 07/20/17 18:00 07/22/17 18:01 07/20/17 18:35 Dextrose (Dextrose 50%) STAT PRN IV Hypoglycemia 07/20/17 14:30 08/19/17 14:29 Duloxetine HCl (Cymbalta) 60 mg DAILY ORAL 07/21/17 09:00 08/15/17 08:59 07/21/17 10:18 Heparin Sodium (Porcine) (Heparin 5000 units/ml) 5,000 units EVERY 12 HOURS SUBQ 07/20/17 21:00 08/15/17 08:59 07/21/17 10:21 Ketorolac Tromethamine (Toradol 30mg) 30 mg Q8H PRN IV Moderate Pain (Pain Scale 4-6) 07/20/17 14:30 07/23/17 14:29 Lamotrigine (LaMICtal) 100 mg Q12HR ORAL 07/20/17 21:00 08/17/17 20:59 07/21/17 10:18 Methylprednisolone Sodium Succinate (Solu-MEDROL) 60 mg EVERY 8 HOURS IV 07/20/17 14:30 08/15/17 14:29 07/21/17 05:24 Morphine Sulfate (Morphine Sulfate) 2 mg Q4H PRN IVP Severe Pain (Pain Scale 7-10) 07/20/17 14:30 07/25/17 14:29 Nitroglycerin (Ntg) 0.4 mg Q5M X 3 DOSES PRN SL Prn Chest Pain 07/20/17 13:30 08/15/17 07:59 Ondansetron HCl (Zofran) 4 mg Q6H PRN IVP Nausea & Vomiting 07/20/17 14:30 08/15/17 08:29 Promethazine HCl/ Codeine (Phenergan with Codeine) 5 ml Q6H PRN ORAL cough 07/20/17 14:30 08/17/17 08:29 07/20/17 15:34 Temazepam (Restoril) 15 mg HSPRN PRN ORAL Insomnia 07/20/17 21:00 07/25/17 20:59 Theophylline (Maik-Dur) 100 mg EVERY 12 HOURS ORAL 07/20/17 21:00 08/15/17 08:59 07/21/17 10:18 Artur BeckettCatholic HealthGriselda Rubin NP Jul 21, 2017 11:18
[2017-07-21] MEDS: Azithromycin 500 MG in D5W 275 ML IV SCH (18:00)
--- NOTE | 2017-07-21 18:29 | General Progress Note ---
Assessment/Plan Problem List: (1) Morbid obesity ICD Codes: E66.01 - Morbid (severe) obesity due to excess calories SNOMED: 607866171, 15327439475007 (2) History of asthma ICD Codes: Z87.09 - Personal history of other diseases of the respiratory system SNOMED: 513731566 (3) Acute asthma exacerbation ICD Codes: J45.901 - Unspecified asthma with (acute) exacerbation SNOMED: 982500408 (4) Dyspnea ICD Codes: R06.00 - Dyspnea, unspecified SNOMED: 501833937 (5) Respiratory distress ICD Codes: R06.03 - Acute respiratory distress SNOMED: 893401926 (6) Anxiety ICD Codes: F41.9 - Anxiety disorder, unspecified SNOMED: 47174985 (7) NPH (normal pressure hydrocephalus) ICD Codes: G91.2 - (Idiopathic) normal pressure hydrocephalus SNOMED: 44713676 (8) Asthma ICD Codes: J45.909 - Unspecified asthma, uncomplicated SNOMED: 095904092 (9) lives at home with caregiver (10) Acute respiratory failure with hypoxia ICD Codes: J96.01 - Acute respiratory failure with hypoxia SNOMED: 31190503, 991547906 (11) severe KAYLEE (12) Bipolar disorder ICD Codes: F31.9 - Bipolar disorder, unspecified SNOMED: 64836913 (13) Depression ICD Codes: F32.9 - Major depressive disorder, single episode, unspecified SNOMED: 84902268 (14) NOEMÍ (acute kidney injury) ICD Codes: N17.9 - Acute kidney failure, unspecified SNOMED: 97202406 (15) Viral URI vs bronchitis (16) History of craniotomy ICD Codes: Z98.890 - Other specified postprocedural states SNOMED: 91968135, 759800759 Status: stable Assessment/Plan Appreciate pulmonary, ID, psych, neuro rec's Trial of theophylline per pulm Cont abx per ID: azithro + zosyn Cont steroids per pulm Cont nebs ATC and PRN Cont O2 and wean off as tolerated Cont CPAP at [id number] qHS Cont home meds Trend CBC, BMP PT eval Possible transfer to [facility] per pt request vs d/c home in 1-2 days pending further improvement DVT Prophylaxis: SCD, HSQ Code Status: Full Hospital Classification Declaration: Based on this initial evaluation, and depending on the patient's clinical course, I anticipate that this patient will require hospitalization for 1-2 days for acute asthma exacerbation and close respiratory/hemodynamic monitoring. Disposition: Once the patient is stable to leave the hospital, I anticipate the patient will likely be discharged to the following environment: home with HH + CG vs SNF Discussed with patient/family, nursing staff, SW/CM, pulm regarding clinical status, treatment course, and disposition planning. D/w pt's caregiver regarding mgmt and dispo Subjective Date patient seen: Jul 21, 2017 Allergies: Coded Allergies: No Known Allergies (Unverified , 07/16/17) Subjective continues to feel SOB. denies CP AF, HDS . Objective Last 24 Hour Vital Signs Date Time Temp Pulse Resp B/P (MAP) Pulse Ox O2 Delivery O2 Flow Rate FiO2 07/21/17 14:55 84 24 Nasal Cannula 3.0 32 07/21/17 14:40 32 07/21/17 14:40 74 24 Nasal Cannula 3.0 32 07/21/17 12:00 81 07/21/17 08:00 82 07/21/17 07:45 80 24 98 Nasal Cannula 3.0 32 07/21/17 07:44 Nasal Cannula 3.0 32 07/21/17 07:44 95 Nasal Cannula 3.0 32 07/21/17 07:36 32 07/21/17 07:36 75 24 95 Nasal Cannula 3.0 32 07/21/17 04:00 30 07/21/17 04:00 97.7 64 24 138/75 93 Room Air 07/21/17 03:37 71 07/21/17 00:00 95 Nasal Cannula 3.0 07/21/17 00:00 82 24 98 Nasal Cannula 3.0 32 07/21/17 00:00 98.1 78 18 133/75 94 Nasal Cannula 07/21/17 00:00 98 Nasal Cannula 3.0 32 07/21/17 00:00 Nasal Cannula 3.0 32 07/20/17 23:51 76 07/20/17 23:50 76 24 97 Nasal Cannula 3.0 32 07/20/17 23:50 32 07/20/17 21:00 30 07/20/17 20:00 95 Nasal Cannula 3.0 07/20/17 20:00 98.2 80 22 139/78 96 Nasal Cannula 07/20/17 19:56 79 Intake and Output 07/21/17 07/22/17 19:00 07:00 Intake Total 600 ml Balance 600 ml Intake Oral 600 ml # Voids 4 # Bowel Movements 1 Laboratory Tests 07/21/17 06:05: White Blood Count 10.2, Red Blood Count 4.39L, Hemoglobin 13.2L, Hematocrit 40.6L, Mean Corpuscular Volume 92, Mean Corpuscular Hemoglobin 30.2, Mean Corpuscular Hemoglobin Concent 32.6, Red Cell Distribution Width 13.9, Platelet Count 213, Mean Platelet Volume 7.3, Neutrophils (%) (Auto) 84.9H, Lymphocytes ( %) (Auto) 11.4L, Monocytes (%) (Auto) 3.2, Eosinophils (%) (Auto) 0.0, Basophils (%) (Auto) 0.5, Sodium Level 140, Potassium Level 4.8, Chloride Level 103, Carbon Dioxide Level 32, Anion Gap 5, Blood Urea Nitrogen 27H, Creatinine 1.2, Estimat Glomerular Filtration Rate > 60, Glucose Level 107H, Calcium Level 8.1L 07/21/17 09:30: Arterial Blood pH 7.406, Arterial Blood Partial Pressure CO2 51.0H, Arterial Blood Partial Pressure O2 86.8, Arterial Blood HCO3 31.3H, Arterial Blood Oxygen Saturation 95.8, Arterial Blood Base Excess 5.4, Kaiden Test Positive Height (Feet): 5 Height (Inches): 8.00 Weight (Pounds): 256 General Appearance: alert, moderate distress EENT: PERRL/EOMI, normal ENT inspection Neck: non-tender, normal alignment, supple Cardiovascular: normal peripheral pulses, normal rate, regular rhythm Respiratory/Chest: decreased breath sounds, crackles/rales, expiratory wheezing , inspiratory wheezing Abdomen: normal bowel sounds, non tender, soft Extremities: normal range of motion Neurologic: worm grower II-XII grossly normal, no motor/sensory deficits, alert, oriented x 3 Skin: normal pigmentation, warm/dry Aleta Casiano N.P. Jul 21, 2017 18:29
[2017-07-21 20:00] VITALS: BP 132/81
--- NOTE | 2017-07-21 22:58 | General Progress Note ---
Assessment/Plan Status: stable Assessment/Plan bipolar d/o cnt current meds Subjective Date patient seen: Jul 20, 2017 Neurologic/Psychiatric: Reports: anxiety, depressed Allergies: Coded Allergies: No Known Allergies (Unverified , 07/16/17) Objective Last 24 Hour Vital Signs Date Time Temp Pulse Resp B/P (MAP) Pulse Ox O2 Delivery O2 Flow Rate FiO2 07/21/17 20:00 97.2 70 20 132/81 95 07/21/17 16:00 88 07/21/17 14:55 84 24 Nasal Cannula 3.0 32 07/21/17 14:40 32 07/21/17 14:40 74 24 Nasal Cannula 3.0 32 07/21/17 12:00 81 07/21/17 08:00 82 07/21/17 07:45 80 24 98 Nasal Cannula 3.0 32 07/21/17 07:44 Nasal Cannula 3.0 32 07/21/17 07:44 95 Nasal Cannula 3.0 32 07/21/17 07:36 32 07/21/17 07:36 75 24 95 Nasal Cannula 3.0 32 07/21/17 04:00 30 07/21/17 04:00 97.7 64 24 138/75 93 Room Air 07/21/17 03:37 71 07/21/17 00:00 95 Nasal Cannula 3.0 07/21/17 00:00 82 24 98 Nasal Cannula 3.0 32 07/21/17 00:00 98.1 78 18 133/75 94 Nasal Cannula 07/21/17 00:00 98 Nasal Cannula 3.0 32 07/21/17 00:00 Nasal Cannula 3.0 32 07/20/17 23:51 76 07/20/17 23:50 76 24 97 Nasal Cannula 3.0 32 07/20/17 23:50 32 Intake and Output 07/21/17 07/22/17 19:00 07:00 Intake Total 600 ml Balance 600 ml Intake Oral 600 ml # Voids 4 # Bowel Movements 1 Laboratory Tests 07/21/17 06:05: White Blood Count 10.2, Red Blood Count 4.39L, Hemoglobin 13.2L, Hematocrit 40.6L, Mean Corpuscular Volume 92, Mean Corpuscular Hemoglobin 30.2, Mean Corpuscular Hemoglobin Concent 32.6, Red Cell Distribution Width 13.9, Platelet Count 213, Mean Platelet Volume 7.3, Neutrophils (%) (Auto) 84.9H, Lymphocytes ( %) (Auto) 11.4L, Monocytes (%) (Auto) 3.2, Eosinophils (%) (Auto) 0.0, Basophils (%) (Auto) 0.5, Sodium Level 140, Potassium Level 4.8, Chloride Level 103, Carbon Dioxide Level 32, Anion Gap 5, Blood Urea Nitrogen 27H, Creatinine 1.2, Estimat Glomerular Filtration Rate > 60, Glucose Level 107H, Calcium Level 8.1L 07/21/17 09:30: Arterial Blood pH 7.406, Arterial Blood Partial Pressure CO2 51.0H, Arterial Blood Partial Pressure O2 86.8, Arterial Blood HCO3 31.3H, Arterial Blood Oxygen Saturation 95.8, Arterial Blood Base Excess 5.4, Kaiden Test Positive Height (Feet): 5 Height (Inches): 8.00 Weight (Pounds): 256 General Appearance: no apparent distress, alert Neurologic: alert, oriented x 3, responsive Rina Damon M.D. Jul 21, 2017 22:58
[2017-07-22] VITALS: BP 132/79
[2017-07-22 04:00] VITALS: BP 140/91
[2017-07-22] MEDS: Albuterol/Ipratropium 3ml neb HHN SCH ×3 (07:30→18:53)
--- NOTE | 2017-07-22 07:59 | General Progress Note ---
Assessment/Plan Assessment/Plan THIS NOTE IS ENTERED BY MISTAKE. Subjective Allergies: Coded Allergies: No Known Allergies (Unverified , 07/16/17) Erna Ruiz MD Jul 22, 2017 07:59
[2017-07-22 08:00] VITALS: BP 128/77
[2017-07-22] MEDS: Theophylline ER 100mg ORAL SCH (09:09)
[2017-07-22] MEDS: DULoxetine 30mg cap ORAL SCH (09:09)
[2017-07-22] MEDS: ARIPiprazole 10mg tab ORAL SCH (09:09)
[2017-07-22] MEDS: Solu-MEDROL 125mg Inj IV SCH (09:09)
[2017-07-22 09:10] LABS: HEMATOCRIT 44.1 % (42.0-52.0); HEMOGLOBIN 14.3 G/DL (14.2-18.0); MEAN CORPUSCULAR VOLUME 91 FL (80-99); PLATELET COUNT 218 K/UL (150-450); RED BLOOD COUNT 4.83 M/UL (4.70-6.10); RED CELL DISTRIBUTION WIDTH 13.8 % (11.6-14.8); WHITE BLOOD COUNT 12.1 K/UL (4.8-10.8)
[2017-07-22] MEDS: Heparin 5000 units/ml inj SUBQ SCH ×2 (09:20→22:54)
[2017-07-22 09:21] LABS: BLOOD UREA NITROGEN 25 mg/dL (7-18); CALCIUM 8.4 MG/DL (8.5-10.1); CARBON DIOXIDE 33 MMOL/L (21-32); CHLORIDE 102 MMOL/L (98-107); CREATININE 1.2 MG/DL (0.55-1.30); POTASSIUM 4.9 MMOL/L (3.5-5.1)
[2017-07-22 09:38] LABS: SODIUM 139 MMOL/L (136-145)
--- NOTE | 2017-07-22 10:34 | Infectious Diseases Prog Note ---
Assessment/Plan Assessment/Plan ASSESSMENT: The patient is a 67-year-old male with: Leukocytosis ( 2/2 steroids ) Asthma exacerbation Possible pneumonia Scx: no sig growth Cxray : NAPD Viral upper respiratory tract infection, Rapid influenza test: Neg Asthma. Bipolar disorder. Depression. PLAN: DC Zithromax d# 7 / 7 SP Zosyn d# 3 Monitor chest x-ray. 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, surgery tentatively scheduled for 07/31 Subjective Allergies: Coded Allergies: No Known Allergies (Unverified , 07/16/17) Subjective comfortable Objective Vital Signs Last 24 Hour Vital Signs Date Time Temp Pulse Resp B/P (MAP) Pulse Ox O2 Delivery O2 Flow Rate FiO2 07/22/17 08:00 97.8 79 20 128/77 99 07/22/17 07:30 30 07/22/17 07:30 Nasal Cannula 3.0 32 07/22/17 07:30 75 18 95 Nasal Cannula 3.0 32 07/22/17 07:30 95 Nasal Cannula 3.0 32 07/22/17 07:30 78 20 99 Nasal Cannula 3.0 32 07/22/17 04:00 64 07/22/17 04:00 97.0 66 20 140/91 95 07/22/17 04:00 30 07/22/17 03:24 79 25 99 Facial 30 07/22/17 01:24 80 14 99 Facial 30 07/22/17 00:02 82 24 99 Bi-pap 30 07/22/17 00:00 66 07/22/17 00:00 97.3 68 20 132/79 97 Bi-pap 3.0 30 07/21/17 23:55 72 14 99 Bi-pap 30 07/21/17 23:55 30 07/21/17 23:45 72 14 99 Facial 30 07/21/17 21:53 76 21 97 Facial 30 07/21/17 21:15 30 07/21/17 21:00 30 07/21/17 20:00 97.2 70 20 132/81 95 07/21/17 20:00 69 07/21/17 16:00 88 07/21/17 14:55 84 24 Nasal Cannula 3.0 32 07/21/17 14:40 32 07/21/17 14:40 74 24 Nasal Cannula 3.0 32 07/21/17 12:00 81 Height (Feet): 5 Height (Inches): 8.00 Weight (Pounds): 256 HEENT: normocephalic Respiratory/Chest: no respiratory distress Cardiovascular: regularly irregular Abdomen: no organomegaly Laboratory Tests Test 07/22/17 07:45 White Blood Count 12.1 K/UL (4.8-10.8) H Red Blood Count 4.83 M/UL (4.70-6.10) Hemoglobin 14.3 G/DL (14.2-18.0) Hematocrit 44.1 % (42.0-52.0) Mean Corpuscular Volume 91 FL (80-99) Mean Corpuscular Hemoglobin 29.6 PG (27.0-31.0) Mean Corpuscular Hemoglobin Concent 32.4 G/DL (32.0-36.0) Red Cell Distribution Width 13.8 % (11.6-14.8) Platelet Count 218 K/UL (150-450) Mean Platelet Volume 7.2 FL (6.5-10.1) Neutrophils (%) (Auto) % (45.0-75.0) Lymphocytes (%) (Auto) % (20.0-45.0) Monocytes (%) (Auto) % (1.0-10.0) Eosinophils (%) (Auto) % (0.0-3.0) Basophils (%) (Auto) % (0.0-2.0) Neutrophils % (Manual) Pending Lymphocytes % (Manual) Pending Platelet Estimate Pending Platelet Morphology Pending Sodium Level 139 MMOL/L (136-145) Potassium Level 4.9 MMOL/L (3.5-5.1) Chloride Level 102 MMOL/L (98-107) Carbon Dioxide Level 33 MMOL/L (21-32) H Blood Urea Nitrogen 25 mg/dL (7-18) H Creatinine 1.2 MG/DL (0.55-1.30) Estimat Glomerular Filtration Rate > 60 mL/min (>60) Glucose Level 130 MG/DL (74-106) H Calcium Level 8.4 MG/DL (8.5-10.1) L Current Medications Medications (Trade) Dose Ordered Sig/Hi Route PRN Reason Start Time Stop Time Status Last Admin Dose Admin Albuterol/ Ipratropium (Albuterol/ Ipratropium) 3 ml Q4H PRN HHN Shortness of Breath 07/20/17 14:30 07/22/17 14:29 Albuterol/ Ipratropium (Albuterol/ Ipratropium) 3 ml Q8HRT HHN 07/20/17 15:00 07/25/17 14:59 07/22/17 07:30 Alprazolam (Xanax) 1 mg BIDPRN PRN ORAL For Anxiety 07/20/17 18:00 07/27/17 17:59 07/21/17 00:06 Aripiprazole (Abilify) 10 mg DAILY ORAL 07/21/17 09:00 08/15/17 08:59 07/22/17 09:09 Azithromycin 500 mg/Dextrose 275 ml @ 275 mls/hr Q24HRS IV 07/20/17 18:00 07/22/17 18:01 07/21/17 18:00 Dextrose (Dextrose 50%) STAT PRN IV Hypoglycemia 07/20/17 14:30 08/19/17 14:29 Duloxetine HCl (Cymbalta) 60 mg DAILY ORAL 07/21/17 09:00 08/15/17 08:59 07/22/17 09:09 Heparin Sodium (Porcine) (Heparin 5000 units/ml) 5,000 units EVERY 12 HOURS SUBQ 07/20/17 21:00 08/15/17 08:59 07/22/17 09:20 Ketorolac Tromethamine (Toradol 30mg) 30 mg Q8H PRN IV Moderate Pain (Pain Scale 4-6) 07/20/17 14:30 07/23/17 14:29 Lamotrigine (LaMICtal) 100 mg Q12HR ORAL 07/20/17 21:00 08/17/17 20:59 07/22/17 09:09 Morphine Sulfate (Morphine Sulfate) 2 mg Q4H PRN IVP Severe Pain (Pain Scale 7-10) 07/20/17 14:30 07/25/17 14:29 Nitroglycerin (Ntg) 0.4 mg Q5M X 3 DOSES PRN SL Prn Chest Pain 07/20/17 13:30 08/15/17 07:59 Ondansetron HCl (Zofran) 4 mg Q6H PRN IVP Nausea & Vomiting 07/20/17 14:30 08/15/17 08:29 Prednisone (predniSONE) 60 mg DAILY ORAL 07/23/17 09:00 08/22/17 08:59 Promethazine HCl/ Codeine (Phenergan with Codeine) 5 ml Q6H PRN ORAL cough 07/20/17 14:30 08/17/17 08:29 07/20/17 15:34 Salmeterol Xinafoate/ Fluticasone (Advair 250/50 Diskus) 1 puffs BIDRT INH 07/22/17 11:30 08/21/17 11:29 Temazepam (Restoril) 15 mg HSPRN PRN ORAL Insomnia 07/20/17 21:00 07/25/17 20:59 Tiotropium [place] (Spiriva Inhaler) 1 puff DAILY INH 07/22/17 12:00 08/21/17 11:59 ELZA ROJAS M.D. Jul 22, 2017 10:34
--- NOTE | 2017-07-22 10:35 | Pulmonology Progress Note ---
Assessment/Plan Problems: (1) Acute asthma exacerbation (2) severe KAYLEE (3) Morbid obesity (4) NPH (normal pressure hydrocephalus) (5) Viral URI vs bronchitis (6) Dyspnea Assessment/Plan -Optimize pulmonary hygiene/mobilize as tolerated -Titrate down FiO2 to keep Sao2 > 90% -Check repeat CXR -Check ABG -D/C SM, start Pred 60 and taper -D/C THEOPHYLLINE -Start Advair and Spiriva -Encourage compliant with NIPPV @ night -Would hold of on Tx to [facility] given he is better -Monitor volumes -DVT Px: Hep SQ Subjective Allergies: Coded Allergies: No Known Allergies (Unverified , 07/16/17) Subjective AFVSS, O2 needs stable + cough with yellow phlegm, mobilizing freely, no F/C, states he feels better but not 100% Objective Last 24 Hour Vital Signs Date Time Temp Pulse Resp B/P (MAP) Pulse Ox O2 Delivery O2 Flow Rate FiO2 07/22/17 08:00 97.8 79 20 128/77 99 07/22/17 07:30 30 07/22/17 07:30 Nasal Cannula 3.0 32 07/22/17 07:30 75 18 95 Nasal Cannula 3.0 32 07/22/17 07:30 95 Nasal Cannula 3.0 32 07/22/17 07:30 78 20 99 Nasal Cannula 3.0 32 07/22/17 04:00 64 07/22/17 04:00 97.0 66 20 140/91 95 07/22/17 04:00 30 07/22/17 03:24 79 25 99 Facial 30 07/22/17 01:24 80 14 99 Facial 30 07/22/17 00:02 82 24 99 Bi-pap 30 07/22/17 00:00 66 07/22/17 00:00 97.3 68 20 132/79 97 Bi-pap 3.0 30 07/21/17 23:55 72 14 99 Bi-pap 30 07/21/17 23:55 30 07/21/17 23:45 72 14 99 Facial 30 07/21/17 21:53 76 21 97 Facial 30 07/21/17 21:15 30 07/21/17 21:00 30 07/21/17 20:00 97.2 70 20 132/81 95 07/21/17 20:00 69 07/21/17 16:00 88 07/21/17 14:55 84 24 Nasal Cannula 3.0 32 07/21/17 14:40 32 07/21/17 14:40 74 24 Nasal Cannula 3.0 32 07/21/17 12:00 81 General Appearance: no acute distress, other - obese male HEENT: normocephalic, atraumatic, mucous membranes moist, other - MP 4 Respiratory/Chest: rhonchi - scattered, expiratory wheezing Cardiovascular: normal peripheral pulses, normal rate, regular rhythm Abdomen: normal bowel sounds, soft, non tender, no organomegaly, non distended Extremities: no cyanosis, no clubbing, no edema Laboratory Tests 07/22/17 07:45: White Blood Count 12.1H, Red Blood Count 4.83, Hemoglobin 14.3, Hematocrit 44.1 , Mean Corpuscular Volume 91, Mean Corpuscular Hemoglobin 29.6, Mean Corpuscular Hemoglobin Concent 32.4, Red Cell Distribution Width 13.8, Platelet Count 218, Mean Platelet Volume 7.2, Neutrophils (%) (Auto) , Lymphocytes (%) ( Auto) , Monocytes (%) (Auto) , Eosinophils (%) (Auto) , Basophils (%) (Auto) , Neutrophils % (Manual) [Pending], Lymphocytes % (Manual) [Pending], Platelet Estimate [Pending], Platelet Morphology [Pending], Sodium Level 139, Potassium Level 4.9, Chloride Level 102, Carbon Dioxide Level 33H, Blood Urea Nitrogen 25H , Creatinine 1.2, Estimat Glomerular Filtration Rate > 60, Glucose Level 130H, Calcium Level 8.4L Current Medications Medications (Trade) Dose Ordered Sig/Hi Route PRN Reason Start Time Stop Time Status Last Admin Dose Admin Albuterol/ Ipratropium (Albuterol/ Ipratropium) 3 ml Q4H PRN HHN Shortness of Breath 07/20/17 14:30 07/22/17 14:29 Albuterol/ Ipratropium (Albuterol/ Ipratropium) 3 ml Q8HRT HHN 07/20/17 15:00 07/25/17 14:59 07/22/17 07:30 Alprazolam (Xanax) 1 mg BIDPRN PRN ORAL For Anxiety 07/20/17 18:00 07/27/17 17:59 07/21/17 00:06 Aripiprazole (Abilify) 10 mg DAILY ORAL 07/21/17 09:00 08/15/17 08:59 07/22/17 09:09 Azithromycin 500 mg/Dextrose 275 ml @ 275 mls/hr Q24HRS IV 07/20/17 18:00 07/22/17 18:01 07/21/17 18:00 Dextrose (Dextrose 50%) STAT PRN IV Hypoglycemia 07/20/17 14:30 08/19/17 14:29 Duloxetine HCl (Cymbalta) 60 mg DAILY ORAL 07/21/17 09:00 08/15/17 08:59 07/22/17 09:09 Heparin Sodium (Porcine) (Heparin 5000 units/ml) 5,000 units EVERY 12 HOURS SUBQ 07/20/17 21:00 08/15/17 08:59 07/22/17 09:20 Ketorolac Tromethamine (Toradol 30mg) 30 mg Q8H PRN IV Moderate Pain (Pain Scale 4-6) 07/20/17 14:30 07/23/17 14:29 Lamotrigine (LaMICtal) 100 mg Q12HR ORAL 07/20/17 21:00 08/17/17 20:59 07/22/17 09:09 Morphine Sulfate (Morphine Sulfate) 2 mg Q4H PRN IVP Severe Pain (Pain Scale 7-10) 07/20/17 14:30 07/25/17 14:29 Nitroglycerin (Ntg) 0.4 mg Q5M X 3 DOSES PRN SL Prn Chest Pain 07/20/17 13:30 08/15/17 07:59 Ondansetron HCl (Zofran) 4 mg Q6H PRN IVP Nausea & Vomiting 07/20/17 14:30 08/15/17 08:29 Prednisone (predniSONE) 60 mg DAILY ORAL 07/23/17 09:00 08/22/17 08:59 Promethazine HCl/ Codeine (Phenergan with Codeine) 5 ml Q6H PRN ORAL cough 07/20/17 14:30 08/17/17 08:29 07/20/17 15:34 Salmeterol Xinafoate/ Fluticasone (Advair 250/50 Diskus) 1 puffs BID INH 07/22/17 18:00 08/21/17 17:59 UNV Temazepam (Restoril) 15 mg HSPRN PRN ORAL Insomnia 07/20/17 21:00 07/25/17 20:59 Tiotropium [place] (Spiriva Inhaler) 1 puff DAILY INH 07/23/17 09:00 08/22/17 08:59 UNV TOMASA SOUZA M.D. Jul 22, 2017 10:35
[2017-07-22] MEDS: Advair 250/50 Inhaler - 14 dose INH SCH ×2 (11:30→22:00)
[2017-07-22 12:00] VITALS: BP 137/90
--- NOTE | 2017-07-22 12:21 | General Progress Note ---
Assessment/Plan Problem List: (1) Acute asthma exacerbation ICD Codes: J45.901 - Unspecified asthma with (acute) exacerbation SNOMED: 032301546 (2) Viral URI vs bronchitis (3) Acute respiratory failure with hypoxia ICD Codes: J96.01 - Acute respiratory failure with hypoxia SNOMED: 69083501, 799871568 (4) Morbid obesity ICD Codes: E66.01 - Morbid (severe) obesity due to excess calories SNOMED: 202599828, 56250956006120 (5) severe KAYLEE (6) NOEMÍ (acute kidney injury) ICD Codes: N17.9 - Acute kidney failure, unspecified SNOMED: 88296888 (7) NPH (normal pressure hydrocephalus) ICD Codes: G91.2 - (Idiopathic) normal pressure hydrocephalus SNOMED: 64050448 (8) Anxiety ICD Codes: F41.9 - Anxiety disorder, unspecified SNOMED: 92367742 (9) Bipolar disorder ICD Codes: F31.9 - Bipolar disorder, unspecified SNOMED: 47459282 (10) Depression ICD Codes: F32.9 - Major depressive disorder, single episode, unspecified SNOMED: 69929931 Status: stable Assessment/Plan Appreciate pulmonary, ID, psych, neuro rec's Cont abx per ID: azithro + zosyn Cont steroids per pulm--changed to prednisone 60mg daily Monitor ABG D/c theophylline Cont nebs ATC and PRN Cont O2 and wean off as tolerated Cont CPAP at [id number] qHS Cont home meds Trend CBC, BMP PT eval Possible transfer to [facility] per pt request vs d/c home in 1-2 days pending further improvement DVT Prophylaxis: SCD, HSQ Code Status: Full Hospital Classification Declaration: Based on this initial evaluation, and depending on the patient's clinical course, I anticipate that this patient will require hospitalization for 1-2 days for acute asthma exacerbation and close respiratory/hemodynamic monitoring. Disposition: Once the patient is stable to leave the hospital, I anticipate the patient will likely be discharged to the following environment: home with HH + CG vs SNF Discussed with patient/family, nursing staff, SW/CM, pulm regarding clinical status, treatment course, and disposition planning. D/w pt's caregiver regarding mgmt and dispo Subjective Date patient seen: Jul 22, 2017 Time patient seen: 12:21 ROS Limited/Unobtainable: No Constitutional: Reports: no symptoms HEENT: Reports: no symptoms Cardiovascular: Reports: no symptoms Respiratory: Reports: cough, shortness of breath, SOB with excertion Gastrointestinal/Abdominal: Reports: no symptoms Genitourinary: Reports: no symptoms Neurologic/Psychiatric: Reports: no symptoms Endocrine: Reports: no symptoms Hematologic/Lymphatic: Reports: no symptoms Allergies: Coded Allergies: No Known Allergies (Unverified , 07/16/17) All Systems: reviewed and negative except above Subjective No acute o/n events Sitting up in chair this AM. Cont w/ cough, congestion, SOB/wheezing but overall improving Objective Last 24 Hour Vital Signs Date Time Temp Pulse Resp B/P (MAP) Pulse Ox O2 Delivery O2 Flow Rate FiO2 07/22/17 08:00 97.8 79 20 128/77 99 07/22/17 07:30 30 07/22/17 07:30 Nasal Cannula 3.0 32 07/22/17 07:30 75 18 95 Nasal Cannula 3.0 32 07/22/17 07:30 95 Nasal Cannula 3.0 32 07/22/17 07:30 78 20 99 Nasal Cannula 3.0 32 07/22/17 04:00 64 07/22/17 04:00 97.0 66 20 140/91 95 07/22/17 04:00 30 07/22/17 03:24 79 25 99 Facial 30 07/22/17 01:24 80 14 99 Facial 30 07/22/17 00:02 82 24 99 Bi-pap 30 07/22/17 00:00 66 07/22/17 00:00 97.3 68 20 132/79 97 Bi-pap 3.0 30 07/21/17 23:55 72 14 99 Bi-pap 30 07/21/17 23:55 30 07/21/17 23:45 72 14 99 Facial 30 07/21/17 21:53 76 21 97 Facial 30 07/21/17 21:15 30 07/21/17 21:00 30 07/21/17 20:00 97.2 70 20 132/81 95 07/21/17 20:00 69 07/21/17 16:00 88 07/21/17 14:55 84 24 Nasal Cannula 3.0 32 07/21/17 14:40 32 07/21/17 14:40 74 24 Nasal Cannula 3.0 32 Laboratory Tests 07/22/17 07:45: White Blood Count 12.1H, Red Blood Count 4.83, Hemoglobin 14.3, Hematocrit 44.1 , Mean Corpuscular Volume 91, Mean Corpuscular Hemoglobin 29.6, Mean Corpuscular Hemoglobin Concent 32.4, Red Cell Distribution Width 13.8, Platelet Count 218, Mean Platelet Volume 7.2, Neutrophils (%) (Auto) , Lymphocytes (%) ( Auto) , Monocytes (%) (Auto) , Eosinophils (%) (Auto) , Basophils (%) (Auto) , Differential Total Cells Counted 100, Neutrophils % (Manual) 88H, Lymphocytes % (Manual) 11L, Monocytes % (Manual) 1, Eosinophils % (Manual) 0, Basophils % ( Manual) 0, Band Neutrophils 0, Platelet Estimate Adequate, Platelet Morphology Normal, Red Blood Cell Morphology Normal, Sodium Level 139, Potassium Level 4.9 , Chloride Level 102, Carbon Dioxide Level 33H, Blood Urea Nitrogen 25H, Creatinine 1.2, Estimat Glomerular Filtration Rate > 60, Glucose Level 130H, Calcium Level 8.4L 07/22/17 11:42: Arterial Blood pH 7.400, Arterial Blood Partial Pressure CO2 51.5H, Arterial Blood Partial Pressure O2 74.8L, Arterial Blood HCO3 31.5H, Arterial Blood Oxygen Saturation 94.4, Arterial Blood Base Excess 5.4, Kaiden Test Positive Height (Feet): 5 Height (Inches): 8.00 Weight (Pounds): 256 Objective General: alert, cooperative, no distress, appears stated age, obese Head: normocephalic, without obvious abnormality, atraumatic Eyes: conjunctivae/corneas clear. PERRL, EOM's intact Throat: lips, mucosa, and tongue normal. MMM Neck: supple, symmetrical, trachea midline, and no JVD Lungs: +wheezing b/l, decreased breath sounds b/l Heart: regular rate and rhythm, S1, S2 normal, no murmur, click, rub or gallop Abdomen: soft, non-tender, non-distended, bowel sounds normal; obese abd Extremities: extremities normal, atraumatic, no cyanosis, trace BLE edema Pulses: 2+ and symmetric Skin: skin color, texture, turgor normal; no rashes or lesions Neurologic: grossly normal, no focal deficits Ulysses Boyer M.D. Jul 22, 2017 12:21
--- NOTE | 2017-07-22 13:51 | Diagnostic Imaging Report ---
Indication: Dyspnea Comparison: 07/17/2017 A single view chest radiograph was obtained. Findings: Cardiomediastinal appearance is within normal limits for age. Pulmonary vascularity is appropriate. The diaphragmatic contour is smooth and costophrenic angles are sharp. No pleural effusions are identified. The bones are unremarkable. Impression: No acute findings
[2017-07-22] MEDS: ALPRAZolam 0.5mg tab ORAL PRN ×2 (15:56→23:44)
[2017-07-22 16:00] VITALS: BP 146/86
[2017-07-22] MEDS: Azithromycin 500 MG in D5W 275 ML IV SCH (17:20)
[2017-07-22 20:00] VITALS: BP 136/78
--- NOTE | 2017-07-22 22:57 | General Progress Note ---
Assessment/Plan Status: stable Assessment/Plan bipolar d/o cnt current meds Subjective Date patient seen: Jul 22, 2017 Neurologic/Psychiatric: Reports: anxiety, depressed, emotional problems Allergies: Coded Allergies: No Known Allergies (Unverified , 07/16/17) Objective Last 24 Hour Vital Signs Date Time Temp Pulse Resp B/P (MAP) Pulse Ox O2 Delivery O2 Flow Rate FiO2 07/22/17 20:00 97.7 74 22 136/78 97 Nasal Cannula 07/22/17 19:01 72 20 97 Nasal Cannula 3.0 32 07/22/17 18:53 Nasal Cannula 3.0 32 07/22/17 16:00 80 07/22/17 16:00 98.0 77 22 146/86 94 07/22/17 15:50 80 22 98 Nasal Cannula 3.0 32 07/22/17 15:50 79 20 99 Nasal Cannula 3.0 32 07/22/17 13:00 Nasal Cannula 3.0 32 07/22/17 13:00 Nasal Cannula 3.0 32 07/22/17 13:00 32 07/22/17 12:00 78 07/22/17 12:00 97.7 79 20 137/90 99 07/22/17 08:00 97.8 79 20 128/77 99 07/22/17 08:00 74 07/22/17 07:30 30 07/22/17 07:30 Nasal Cannula 3.0 32 07/22/17 07:30 75 18 95 Nasal Cannula 3.0 32 07/22/17 07:30 95 Nasal Cannula 3.0 32 07/22/17 07:30 78 20 99 Nasal Cannula 3.0 32 07/22/17 04:00 64 07/22/17 04:00 97.0 66 20 140/91 95 07/22/17 04:00 30 07/22/17 03:24 79 25 99 Facial 30 07/22/17 01:24 80 14 99 Facial 30 07/22/17 00:02 82 24 99 Bi-pap 30 07/22/17 00:00 66 07/22/17 00:00 97.3 68 20 132/79 97 Bi-pap 3.0 30 07/21/17 23:55 72 14 99 Bi-pap 30 07/21/17 23:55 30 07/21/17 23:45 72 14 99 Facial 30 Intake and Output 07/22/17 07/23/17 19:00 07:00 Intake Total 1000 ml Balance 1000 ml Intake Oral 1000 ml # Voids 3 # Bowel Movements 1 Laboratory Tests 07/22/17 07:45: White Blood Count 12.1H, Red Blood Count 4.83, Hemoglobin 14.3, Hematocrit 44.1 , Mean Corpuscular Volume 91, Mean Corpuscular Hemoglobin 29.6, Mean Corpuscular Hemoglobin Concent 32.4, Red Cell Distribution Width 13.8, Platelet Count 218, Mean Platelet Volume 7.2, Neutrophils (%) (Auto) , Lymphocytes (%) ( Auto) , Monocytes (%) (Auto) , Eosinophils (%) (Auto) , Basophils (%) (Auto) , Differential Total Cells Counted 100, Neutrophils % (Manual) 88H, Lymphocytes % (Manual) 11L, Monocytes % (Manual) 1, Eosinophils % (Manual) 0, Basophils % ( Manual) 0, Band Neutrophils 0, Platelet Estimate Adequate, Platelet Morphology Normal, Red Blood Cell Morphology Normal, Sodium Level 139, Potassium Level 4.9 , Chloride Level 102, Carbon Dioxide Level 33H, Blood Urea Nitrogen 25H, Creatinine 1.2, Estimat Glomerular Filtration Rate > 60, Glucose Level 130H, Calcium Level 8.4L 07/22/17 11:42: Arterial Blood pH 7.400, Arterial Blood Partial Pressure CO2 51.5H, Arterial Blood Partial Pressure O2 74.8L, Arterial Blood HCO3 31.5H, Arterial Blood Oxygen Saturation 94.4, Arterial Blood Base Excess 5.4, Kaiden Test Positive General Appearance: no apparent distress, alert, obese Neurologic: alert, oriented x 3, responsive, depressed affect Rina Damon M.D. Jul 22, 2017 22:57
--- NOTE | 2017-07-22 22:58 | Geriatric Progress Note ---
Assessment/Plan Discussed with: patient Subjective Interval Events 07/21 Mood/Memory: Reports: prior hx, anxiety, depressed feelings, emotional problems Geriatric Geriatric Last 24 Hour Vital Signs Date Time Temp Pulse Resp B/P (MAP) Pulse Ox O2 Delivery O2 Flow Rate FiO2 07/22/17 20:00 97.7 74 22 136/78 97 Nasal Cannula 07/22/17 19:01 72 20 97 Nasal Cannula 3.0 32 07/22/17 18:53 Nasal Cannula 3.0 32 07/22/17 16:00 80 07/22/17 16:00 98.0 77 22 146/86 94 07/22/17 15:50 80 22 98 Nasal Cannula 3.0 32 07/22/17 15:50 79 20 99 Nasal Cannula 3.0 32 07/22/17 13:00 Nasal Cannula 3.0 32 07/22/17 13:00 Nasal Cannula 3.0 32 07/22/17 13:00 32 07/22/17 12:00 78 07/22/17 12:00 97.7 79 20 137/90 99 07/22/17 08:00 97.8 79 20 128/77 99 07/22/17 08:00 74 07/22/17 07:30 30 07/22/17 07:30 Nasal Cannula 3.0 32 07/22/17 07:30 75 18 95 Nasal Cannula 3.0 32 07/22/17 07:30 95 Nasal Cannula 3.0 32 07/22/17 07:30 78 20 99 Nasal Cannula 3.0 32 07/22/17 04:00 64 07/22/17 04:00 97.0 66 20 140/91 95 07/22/17 04:00 30 07/22/17 03:24 79 25 99 Facial 30 07/22/17 01:24 80 14 99 Facial 30 07/22/17 00:02 82 24 99 Bi-pap 30 07/22/17 00:00 66 07/22/17 00:00 97.3 68 20 132/79 97 Bi-pap 3.0 30 07/21/17 23:55 72 14 99 Bi-pap 30 07/21/17 23:55 30 07/21/17 23:45 72 14 99 Facial 30 Intake and Output 07/22/17 07/23/17 19:00 07:00 Intake Total 1000 ml Balance 1000 ml Intake Oral 1000 ml # Voids 3 # Bowel Movements 1 Laboratory Tests Test 07/22/17 07:45 07/22/17 11:42 White Blood Count 12.1 K/UL (4.8-10.8) H Red Blood Count 4.83 M/UL (4.70-6.10) Hemoglobin 14.3 G/DL (14.2-18.0) Hematocrit 44.1 % (42.0-52.0) Mean Corpuscular Volume 91 FL (80-99) Mean Corpuscular Hemoglobin 29.6 PG (27.0-31.0) Mean Corpuscular Hemoglobin Concent 32.4 G/DL (32.0-36.0) Red Cell Distribution Width 13.8 % (11.6-14.8) Platelet Count 218 K/UL (150-450) Mean Platelet Volume 7.2 FL (6.5-10.1) Neutrophils (%) (Auto) % (45.0-75.0) Lymphocytes (%) (Auto) % (20.0-45.0) Monocytes (%) (Auto) % (1.0-10.0) Eosinophils (%) (Auto) % (0.0-3.0) Basophils (%) (Auto) % (0.0-2.0) Differential Total Cells Counted 100 Neutrophils % (Manual) 88 % (45-75) H Lymphocytes % (Manual) 11 % (20-45) L Monocytes % (Manual) 1 % (1-10) Eosinophils % (Manual) 0 % (0-3) Basophils % (Manual) 0 % (0-2) Band Neutrophils 0 % (0-8) Platelet Estimate Adequate Platelet Morphology Normal Red Blood Cell Morphology Normal Sodium Level 139 MMOL/L (136-145) Potassium Level 4.9 MMOL/L (3.5-5.1) Chloride Level 102 MMOL/L (98-107) Carbon Dioxide Level 33 MMOL/L (21-32) H Blood Urea Nitrogen 25 mg/dL (7-18) H Creatinine 1.2 MG/DL (0.55-1.30) Estimat Glomerular Filtration Rate > 60 mL/min (>60) Glucose Level 130 MG/DL (74-106) H Calcium Level 8.4 MG/DL (8.5-10.1) L Arterial Blood pH 7.400 (7.350-7.450) Arterial Blood Partial Pressure CO2 51.5 mmHg (35.0-45.0) H Arterial Blood Partial Pressure O2 74.8 mmHg (75.0-100.0) L Arterial Blood HCO3 31.5 mmol/L (22.0-26.0) H Arterial Blood Oxygen Saturation 94.4 % (92.0-98.0) Arterial Blood Base Excess 5.4 Kaiden Test Positive Current Medications Medications (Trade) Dose Ordered Sig/Hi Route PRN Reason Start Time Stop Time Status Last Admin Dose Admin Albuterol/ Ipratropium (Albuterol/ Ipratropium) 3 ml Q6HRT HHN 07/22/17 13:00 07/25/17 14:59 07/22/17 18:53 Alprazolam (Xanax) 1 mg BIDPRN PRN ORAL For Anxiety 07/20/17 18:00 07/27/17 17:59 07/22/17 15:56 Aripiprazole (Abilify) 10 mg DAILY ORAL 07/21/17 09:00 08/15/17 08:59 07/22/17 09:09 Dextrose (Dextrose 50%) STAT PRN IV Hypoglycemia 07/20/17 14:30 08/19/17 14:29 Duloxetine HCl (Cymbalta) 60 mg DAILY ORAL 07/21/17 09:00 08/15/17 08:59 07/22/17 09:09 Heparin Sodium (Porcine) (Heparin 5000 units/ml) 5,000 units EVERY 12 HOURS SUBQ 07/20/17 21:00 08/15/17 08:59 07/22/17 22:54 Ketorolac Tromethamine (Toradol 30mg) 30 mg Q8H PRN IV Moderate Pain (Pain Scale 4-6) 07/20/17 14:30 07/23/17 14:29 Lamotrigine (LaMICtal) 100 mg Q12HR ORAL 07/20/17 21:00 08/17/17 20:59 07/22/17 22:53 Morphine Sulfate (Morphine Sulfate) 2 mg Q4H PRN IVP Severe Pain (Pain Scale 7-10) 07/20/17 14:30 07/25/17 14:29 Nitroglycerin (Ntg) 0.4 mg Q5M X 3 DOSES PRN SL Prn Chest Pain 07/20/17 13:30 08/15/17 07:59 Ondansetron HCl (Zofran) 4 mg Q6H PRN IVP Nausea & Vomiting 07/20/17 14:30 08/15/17 08:29 Prednisone (predniSONE) 60 mg DAILY ORAL 07/23/17 09:00 08/22/17 08:59 Promethazine HCl/ Codeine (Phenergan with Codeine) 5 ml Q6H PRN ORAL cough 07/20/17 14:30 08/17/17 08:29 07/20/17 15:34 Salmeterol Xinafoate/ Fluticasone (Advair 250/50 Diskus) 1 puffs BIDRT INH 07/22/17 11:30 08/21/17 11:29 Temazepam (Restoril) 15 mg HSPRN PRN ORAL Insomnia 07/20/17 21:00 07/25/17 20:59 Tiotropium [place] (Spiriva Inhaler) 1 puff DAILY INH 07/22/17 12:00 08/21/17 11:59 07/22/17 15:50 General Appearance: no apparent distress, alert Psychiatric Orientation: person, place, time Rina Damon M.D. Jul 22, 2017 22:58
[2017-07-23] VITALS: BP 119/65
[2017-07-23] MEDS: Albuterol/Ipratropium 3ml neb HHN SCH ×4 (01:00→19:00)
[2017-07-23 04:00] VITALS: BP 125/85
[2017-07-23 08:10] VITALS: BP 127/67
[2017-07-23] MEDS: DULoxetine 30mg cap ORAL SCH (08:49)
[2017-07-23] MEDS: ARIPiprazole 10mg tab ORAL SCH (08:50)
[2017-07-23] MEDS: Heparin 5000 units/ml inj SUBQ SCH ×2 (08:50→22:05)
--- NOTE | 2017-07-23 09:28 | Infectious Diseases Prog Note ---
Assessment/Plan Assessment/Plan ASSESSMENT: The patient is a 67-year-old male with: Leukocytosis ( 2/2 steroids ) Asthma exacerbation Possible pneumonia Scx: no sig growth Cxray : NAPD Viral upper respiratory tract infection, Rapid influenza test: Neg Asthma. Bipolar disorder. Depression. PLAN: monitor pt off of AB Rx 07/22 SP Zithromax d# 7 / 7 SP Zosyn d# 3 Monitor chest x-ray. 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, surgery tentatively scheduled for 07/31 Subjective Constitutional: Denies: no symptoms, fever, chills, fatigue, anorexia, drenching sweats, other Allergies: Coded Allergies: No Known Allergies (Unverified , 07/16/17) Subjective comfortable Objective Vital Signs Last 24 Hour Vital Signs Date Time Temp Pulse Resp B/P (MAP) Pulse Ox O2 Delivery O2 Flow Rate FiO2 07/23/17 04:00 70 07/23/17 04:00 98.1 70 24 125/85 97 Nasal Cannula 07/23/17 01:00 Nasal Cannula 3.0 32 07/23/17 01:00 Nasal Cannula 3.0 32 07/23/17 00:00 97.7 89 20 119/65 93 Nasal Cannula 07/23/17 00:00 65 07/22/17 20:00 73 07/22/17 20:00 97.7 74 22 136/78 97 Nasal Cannula 07/22/17 19:01 72 20 97 Nasal Cannula 3.0 32 07/22/17 18:53 Nasal Cannula 3.0 32 07/22/17 16:00 80 07/22/17 16:00 98.0 77 22 146/86 94 07/22/17 15:50 80 22 98 Nasal Cannula 3.0 32 07/22/17 15:50 79 20 99 Nasal Cannula 3.0 32 07/22/17 13:00 Nasal Cannula 3.0 32 07/22/17 13:00 Nasal Cannula 3.0 32 07/22/17 13:00 32 07/22/17 12:00 78 07/22/17 12:00 97.7 79 20 137/90 99 HEENT: anicteric Respiratory/Chest: no respiratory distress Cardiovascular: regular rhythm Abdomen: soft, non tender Laboratory Tests Test 07/22/17 11:42 Arterial Blood pH 7.400 (7.350-7.450) Arterial Blood Partial Pressure CO2 51.5 mmHg (35.0-45.0) H Arterial Blood Partial Pressure O2 74.8 mmHg (75.0-100.0) L Arterial Blood HCO3 31.5 mmol/L (22.0-26.0) H Arterial Blood Oxygen Saturation 94.4 % (92.0-98.0) Arterial Blood Base Excess 5.4 Kaiden Test Positive Current Medications Medications (Trade) Dose Ordered Sig/Hi Route PRN Reason Start Time Stop Time Status Last Admin Dose Admin Albuterol/ Ipratropium (Albuterol/ Ipratropium) 3 ml Q6HRT HHN 07/22/17 13:00 07/25/17 14:59 07/23/17 09:21 Alprazolam (Xanax) 1 mg BIDPRN PRN ORAL For Anxiety 07/20/17 18:00 07/27/17 17:59 07/22/17 23:44 Aripiprazole (Abilify) 10 mg DAILY ORAL 07/21/17 09:00 08/15/17 08:59 07/23/17 08:50 Dextrose (Dextrose 50%) STAT PRN IV Hypoglycemia 07/20/17 14:30 08/19/17 14:29 Duloxetine HCl (Cymbalta) 60 mg DAILY ORAL 07/21/17 09:00 08/15/17 08:59 07/23/17 08:49 Heparin Sodium (Porcine) (Heparin 5000 units/ml) 5,000 units EVERY 12 HOURS SUBQ 07/20/17 21:00 08/15/17 08:59 07/23/17 08:50 Ketorolac Tromethamine (Toradol 30mg) 30 mg Q8H PRN IV Moderate Pain (Pain Scale 4-6) 07/20/17 14:30 07/23/17 14:29 Lamotrigine (LaMICtal) 100 mg Q12HR ORAL 07/20/17 21:00 08/17/17 20:59 07/23/17 08:50 Morphine Sulfate (Morphine Sulfate) 2 mg Q4H PRN IVP Severe Pain (Pain Scale 7-10) 07/20/17 14:30 07/25/17 14:29 Nitroglycerin (Ntg) 0.4 mg Q5M X 3 DOSES PRN SL Prn Chest Pain 07/20/17 13:30 08/15/17 07:59 Ondansetron HCl (Zofran) 4 mg Q6H PRN IVP Nausea & Vomiting 07/20/17 14:30 08/15/17 08:29 Prednisone (predniSONE) 60 mg DAILY ORAL 07/23/17 09:00 08/22/17 08:59 07/23/17 08:49 Promethazine HCl/ Codeine (Phenergan with Codeine) 5 ml Q6H PRN ORAL cough 07/20/17 14:30 08/17/17 08:29 07/20/17 15:34 Salmeterol Xinafoate/ Fluticasone (Advair 250/50 Diskus) 1 puffs BIDRT INH 07/22/17 11:30 08/21/17 11:29 Temazepam (Restoril) 15 mg HSPRN PRN ORAL Insomnia 07/20/17 21:00 07/25/17 20:59 Tiotropium [place] (Spiriva Inhaler) 1 puff DAILY INH 07/22/17 12:00 08/21/17 11:59 07/22/17 15:50 ELZA ROJAS M.D. Jul 23, 2017 09:28
[2017-07-23] MEDS: Advair 250/50 Inhaler - 14 dose INH SCH ×2 (11:24→22:00)
[2017-07-23 12:00] VITALS: BP 129/70
--- NOTE | 2017-07-23 12:07 | General Progress Note ---
Assessment/Plan Problem List: (1) Acute asthma exacerbation ICD Codes: J45.901 - Unspecified asthma with (acute) exacerbation SNOMED: 191715808 (2) Viral URI vs bronchitis (3) Acute respiratory failure with hypoxia ICD Codes: J96.01 - Acute respiratory failure with hypoxia SNOMED: 92170755, 381882378 (4) Morbid obesity ICD Codes: E66.01 - Morbid (severe) obesity due to excess calories SNOMED: 285136383, [id number] (5) severe KAYLEE (6) NOEMÍ (acute kidney injury) ICD Codes: N17.9 - Acute kidney failure, unspecified SNOMED: 51398776 (7) NPH (normal pressure hydrocephalus) ICD Codes: G91.2 - (Idiopathic) normal pressure hydrocephalus SNOMED: 93409800 (8) Anxiety ICD Codes: F41.9 - Anxiety disorder, unspecified SNOMED: 64449784 (9) Bipolar disorder ICD Codes: F31.9 - Bipolar disorder, unspecified SNOMED: 76605814 (10) Depression ICD Codes: F32.9 - Major depressive disorder, single episode, unspecified SNOMED: 44566777 Status: stable Assessment/Plan Appreciate pulmonary, ID, psych, neuro rec's Cont abx per ID: zosyn, s/p azithro Cont steroids per pulm--changed to prednisone 60mg daily w/ slow taper Monitor ABG D/c theophylline Cont nebs ATC and PRN Cont O2 and wean off as tolerated Cont CPAP at [id number] qHS Cont home meds Trend CBC, BMP PT eval CM consulted for d/c to SNF ([facility] per pt preference vs guardian) vs ARU ([facility]) DVT Prophylaxis: SCD, HSQ Code Status: Full Hospital Classification Declaration: Based on this initial evaluation, and depending on the patient's clinical course, I anticipate that this patient will require hospitalization for 1-2 days for acute asthma exacerbation and close respiratory/hemodynamic monitoring. Disposition: Once the patient is stable to leave the hospital, I anticipate the patient will likely be discharged to the following environment: home with HH + CG vs SNF vs ARU Discussed with patient/family, nursing staff, SW/CM, pulm regarding clinical status, treatment course, and disposition planning. D/w pt's caregiver regarding mgmt and dispo Subjective Date patient seen: Jul 23, 2017 Time patient seen: 12:06 ROS Limited/Unobtainable: No Constitutional: Reports: no symptoms HEENT: Reports: no symptoms Cardiovascular: Reports: no symptoms Respiratory: Reports: cough, shortness of breath, SOB with excertion Gastrointestinal/Abdominal: Reports: no symptoms Genitourinary: Reports: no symptoms Neurologic/Psychiatric: Reports: no symptoms Endocrine: Reports: no symptoms Allergies: Coded Allergies: No Known Allergies (Unverified , 07/16/17) All Systems: reviewed and negative except above Subjective No acute o/n events Pt states he is not feeling well to go home yet. Cont to c/o cough, SOB/wheezing Objective Last 24 Hour Vital Signs Date Time Temp Pulse Resp B/P (MAP) Pulse Ox O2 Delivery O2 Flow Rate FiO2 07/23/17 11:24 80 22 98 Nasal Cannula 3.0 32 07/23/17 11:24 80 18 96 Nasal Cannula 3.0 32 07/23/17 09:29 78 16 97 Nasal Cannula 3.0 32 07/23/17 09:21 78 20 96 Nasal Cannula 3.0 32 07/23/17 08:10 97.1 77 24 127/67 97 Nasal Cannula 2.0 07/23/17 07:53 77 07/23/17 04:00 70 07/23/17 04:00 98.1 70 24 125/85 97 Nasal Cannula 07/23/17 01:00 Nasal Cannula 3.0 32 07/23/17 01:00 Nasal Cannula 3.0 32 07/23/17 00:00 97.7 89 20 119/65 93 Nasal Cannula 07/23/17 00:00 65 07/22/17 20:00 73 07/22/17 20:00 97.7 74 22 136/78 97 Nasal Cannula 07/22/17 19:01 72 20 97 Nasal Cannula 3.0 32 07/22/17 18:53 Nasal Cannula 3.0 32 07/22/17 16:00 80 07/22/17 16:00 98.0 77 22 146/86 94 07/22/17 15:50 80 22 98 Nasal Cannula 3.0 32 07/22/17 15:50 79 20 99 Nasal Cannula 3.0 32 07/22/17 13:00 Nasal Cannula 3.0 32 07/22/17 13:00 Nasal Cannula 3.0 32 07/22/17 13:00 32 Intake and Output 07/23/17 07/24/17 19:00 07:00 # Bowel Movements 1 Objective General: alert, cooperative, no distress, appears stated age, obese Head: normocephalic, without obvious abnormality, atraumatic Eyes: conjunctivae/corneas clear. PERRL, EOM's intact Throat: lips, mucosa, and tongue normal. MMM Neck: supple, symmetrical, trachea midline, and no JVD Lungs: +wheezing b/l, decreased breath sounds b/l Heart: regular rate and rhythm, S1, S2 normal, no murmur, click, rub or gallop Abdomen: soft, non-tender, non-distended, bowel sounds normal; obese abd Extremities: extremities normal, atraumatic, no cyanosis, trace BLE edema Pulses: 2+ and symmetric Skin: skin color, texture, turgor normal; no rashes or lesions Neurologic: grossly normal, no focal deficits Ulysses Boyer M.D. Jul 23, 2017 12:07
[2017-07-23 16:00] VITALS: BP 124/64
[2017-07-23] MEDS: ALPRAZolam 0.5mg tab ORAL PRN ×2 (16:00→22:10)
--- NOTE | 2017-07-23 17:56 | Pulmonology Progress Note ---
Assessment/Plan Problems: (1) Acute asthma exacerbation (2) severe KAYLEE (3) Morbid obesity (4) NPH (normal pressure hydrocephalus) (5) Viral URI vs bronchitis (6) Dyspnea Assessment/Plan -Optimize pulmonary hygiene/mobilize as tolerated -Titrate down FiO2 to keep Sao2 > 90% -Continue Pred 60 and slolwy taper -Continue Advair and Spiriva -Add mucinex and PRN Robitussin -Encourage compliant with NIPPV @ night -Would hold of on Tx to [facility] given he is better, may need SNF -F/U with NSG @ [facility] as planned -Monitor volumes -DVT Px: Hep SQ Subjective Allergies: Coded Allergies: No Known Allergies (Unverified , 07/16/17) Subjective AFVSS, O2 needs better now on 2L + cough with yellow phlegm, mobilizing freely, no F/C, states he feels better but still not 100% Objective Last 24 Hour Vital Signs Date Time Temp Pulse Resp B/P (MAP) Pulse Ox O2 Delivery O2 Flow Rate FiO2 07/23/17 16:51 88 07/23/17 16:00 97.8 78 18 124/64 93 Nasal Cannula 2.0 07/23/17 13:06 76 16 97 Nasal Cannula 3.0 32 07/23/17 12:56 80 20 96 Nasal Cannula 3.0 32 07/23/17 12:00 97.1 90 20 129/70 93 Nasal Cannula 2.0 07/23/17 11:26 78 07/23/17 11:24 80 22 98 Nasal Cannula 3.0 32 07/23/17 11:24 80 18 96 Nasal Cannula 3.0 32 07/23/17 09:29 78 16 97 Nasal Cannula 3.0 32 07/23/17 09:21 78 20 96 Nasal Cannula 3.0 32 07/23/17 08:10 97.1 77 24 127/67 97 Nasal Cannula 2.0 07/23/17 07:53 77 07/23/17 04:00 70 07/23/17 04:00 98.1 70 24 125/85 97 Nasal Cannula 07/23/17 01:00 Nasal Cannula 3.0 32 07/23/17 01:00 Nasal Cannula 3.0 32 07/23/17 00:00 97.7 89 20 119/65 93 Nasal Cannula 07/23/17 00:00 65 07/22/17 20:00 73 07/22/17 20:00 97.7 74 22 136/78 97 Nasal Cannula 07/22/17 19:01 72 20 97 Nasal Cannula 3.0 32 07/22/17 18:53 Nasal Cannula 3.0 32 Intake and Output 07/23/17 07/24/17 19:00 07:00 Intake Total 400 ml Balance 400 ml Intake Oral 400 ml # Voids 3 # Bowel Movements 2 General Appearance: no acute distress, other - obese male HEENT: normocephalic, atraumatic, other - MP 4 Respiratory/Chest: rhonchi - scattered Cardiovascular: normal peripheral pulses, normal rate, regular rhythm Abdomen: normal bowel sounds, soft, non tender, no organomegaly, non distended Extremities: no cyanosis, no clubbing, no edema Current Medications Medications (Trade) Dose Ordered Sig/Hi Route PRN Reason Start Time Stop Time Status Last Admin Dose Admin Albuterol/ Ipratropium (Albuterol/ Ipratropium) 3 ml Q6HRT HHN 07/22/17 13:00 07/25/17 14:59 07/23/17 12:56 Alprazolam (Xanax) 1 mg BIDPRN PRN ORAL For Anxiety 07/20/17 18:00 07/27/17 17:59 07/23/17 16:00 Aripiprazole (Abilify) 10 mg DAILY ORAL 07/21/17 09:00 08/15/17 08:59 07/23/17 08:50 Dextrose (Dextrose 50%) STAT PRN IV Hypoglycemia 07/20/17 14:30 08/19/17 14:29 Duloxetine HCl (Cymbalta) 60 mg DAILY ORAL 07/21/17 09:00 08/15/17 08:59 07/23/17 08:49 Heparin Sodium (Porcine) (Heparin 5000 units/ml) 5,000 units EVERY 12 HOURS SUBQ 07/20/17 21:00 08/15/17 08:59 07/23/17 08:50 Lamotrigine (LaMICtal) 100 mg Q12HR ORAL 07/20/17 21:00 08/17/17 20:59 07/23/17 08:50 Morphine Sulfate (Morphine Sulfate) 2 mg Q4H PRN IVP Severe Pain (Pain Scale 7-10) 07/20/17 14:30 07/25/17 14:29 Nitroglycerin (Ntg) 0.4 mg Q5M X 3 DOSES PRN SL Prn Chest Pain 07/20/17 13:30 08/15/17 07:59 Ondansetron HCl (Zofran) 4 mg Q6H PRN IVP Nausea & Vomiting 07/20/17 14:30 08/15/17 08:29 Prednisone (predniSONE) 60 mg DAILY ORAL 07/23/17 09:00 08/22/17 08:59 07/23/17 08:49 Promethazine HCl/ Codeine (Phenergan with Codeine) 5 ml Q6H PRN ORAL cough 07/20/17 14:30 08/17/17 08:29 07/20/17 15:34 Salmeterol Xinafoate/ Fluticasone (Advair 250/50 Diskus) 1 puffs BIDRT INH 07/22/17 11:30 08/21/17 11:29 07/23/17 11:24 Temazepam (Restoril) 15 mg HSPRN PRN ORAL Insomnia 07/20/17 21:00 07/25/17 20:59 Tiotropium [place] (Spiriva Inhaler) 1 puff DAILY INH 07/22/17 12:00 08/21/17 11:59 07/22/17 15:50 TOMASA SOUZA M.D. Jul 23, 2017 17:56
[2017-07-23] MEDS: guaiFENesin ER 600mg tab ORAL SCH (18:34)
[2017-07-23 20:00] VITALS: BP 124/79
[2017-07-23] MEDS: guaiFENesin 100mg/5ml Liq ud ORAL PRN (22:02)
--- NOTE | 2017-07-23 23:07 | General Progress Note ---
Assessment/Plan Status: stable, progressing Assessment/Plan bipolar d/o cnt current meds Subjective Date patient seen: Jul 23, 2017 Neurologic/Psychiatric: Reports: anxiety, depressed, emotional problems Allergies: Coded Allergies: No Known Allergies (Unverified , 07/16/17) Objective Last 24 Hour Vital Signs Date Time Temp Pulse Resp B/P (MAP) Pulse Ox O2 Delivery O2 Flow Rate FiO2 07/23/17 20:47 Room Air 07/23/17 20:46 Room Air 21 07/23/17 20:00 97.9 86 20 124/79 96 Room Air 07/23/17 16:51 88 07/23/17 16:00 97.8 78 18 124/64 93 Nasal Cannula 2.0 07/23/17 13:06 76 16 97 Nasal Cannula 3.0 32 07/23/17 12:56 80 20 96 Nasal Cannula 3.0 32 07/23/17 12:00 97.1 90 20 129/70 93 Nasal Cannula 2.0 07/23/17 11:26 78 07/23/17 11:24 80 22 98 Nasal Cannula 3.0 32 07/23/17 11:24 80 18 96 Nasal Cannula 3.0 32 07/23/17 09:29 78 16 97 Nasal Cannula 3.0 32 07/23/17 09:21 78 20 96 Nasal Cannula 3.0 32 07/23/17 08:10 97.1 77 24 127/67 97 Nasal Cannula 2.0 07/23/17 07:53 77 07/23/17 04:00 70 07/23/17 04:00 98.1 70 24 125/85 97 Nasal Cannula 07/23/17 01:00 Nasal Cannula 3.0 32 07/23/17 01:00 Nasal Cannula 3.0 32 07/23/17 00:00 97.7 89 20 119/65 93 Nasal Cannula 07/23/17 00:00 65 Intake and Output 07/23/17 07/24/17 19:00 07:00 Intake Total 876 ml Output Total 1 ml Balance 875 ml Intake Oral 876 ml Output Urine Total 1 ml # Voids 4 # Bowel Movements 2 General Appearance: no apparent distress, alert Neurologic: alert, oriented x 3, responsive Rina Damon M.D. Jul 23, 2017 23:07
[2017-07-24 00:07] VITALS: BP 139/73
[2017-07-24] MEDS: Albuterol/Ipratropium 3ml neb HHN SCH ×4 (02:09→19:16)
[2017-07-24 04:26] VITALS: BP 150/74
[2017-07-24] MEDS ORDERED: Zosyn 3.375gm inj ONE (05:47)
[2017-07-24] MEDS: guaiFENesin 100mg/5ml Liq ud ORAL PRN (05:56)
[2017-07-24 06:33] LABS: BASOPHILS % (AUTO) 0.7 % (0.0-2.0); EOSINOPHILS % (AUTO) 0.2 % (0.0-3.0); HEMATOCRIT 44.2 % (42.0-52.0); HEMOGLOBIN 14.3 G/DL (14.2-18.0); LYMPHOCYTES % (AUTO) 14.3 % (20.0-45.0); MEAN CORPUSCULAR VOLUME 93 FL (80-99); MONOCYTES % (AUTO) 3.6 % (1.0-10.0); NEUTROPHILS % (AUTO) 81.2 % (45.0-75.0); PLATELET COUNT 247 K/UL (150-450); RED BLOOD COUNT 4.78 M/UL (4.70-6.10); RED CELL DISTRIBUTION WIDTH 14.3 % (11.6-14.8); WHITE BLOOD COUNT 15.1 K/UL (4.8-10.8)
[2017-07-24 06:50] LABS: ANION GAP 5 mmol/L (5-15); BLOOD UREA NITROGEN 24 mg/dL (7-18); CARBON DIOXIDE 34 MMOL/L (21-32); CHLORIDE 102 MMOL/L (98-107); CREATININE 1.3 MG/DL (0.55-1.30); SODIUM 140 MMOL/L (136-145)
[2017-07-24] MEDS: Heparin 5000 units/ml inj SUBQ SCH ×2 (08:00→21:09)
[2017-07-24] MEDS: DULoxetine 30mg cap ORAL SCH (08:03)
[2017-07-24] MEDS: ARIPiprazole 10mg tab ORAL SCH (08:03)
[2017-07-24] MEDS: guaiFENesin ER 600mg tab ORAL SCH ×2 (08:04→16:57)
[2017-07-24 08:05] VITALS: BP 158/74
[2017-07-24] MEDS: Advair 250/50 Inhaler - 14 dose INH SCH ×2 (08:37→21:38)
--- NOTE | 2017-07-24 10:40 | Infectious Diseases Prog Note ---
Assessment/Plan Assessment/Plan ASSESSMENT: The patient is a 67-year-old male with: Leukocytosis ( 2/2 steroids ) Asthma exacerbation Possible pneumonia Scx: no sig growth , SP Rx Cxray : NAPD Viral upper respiratory tract infection, Rapid influenza test: Neg Asthma. Bipolar disorder. Depression. PLAN: monitor pt off of AB Rx 07/22 SP Zithromax d# 7 / 7 12 SP Zosyn d# 3 Monitor chest x-ray. 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, surgery tentatively scheduled for 07/31 BiPAP PRN Subjective Allergies: Coded Allergies: No Known Allergies (Unverified , 07/16/17) Subjective on BiPAP for C02 retention Objective Vital Signs Last 24 Hour Vital Signs Date Time Temp Pulse Resp B/P (MAP) Pulse Ox O2 Delivery O2 Flow Rate FiO2 07/24/17 10:11 74 20 95 Facial 30 07/24/17 08:05 97.5 81 20 158/74 94 Nasal Cannula 3.0 07/24/17 07:51 Nasal Cannula 2.0 28 07/24/17 07:51 95 Nasal Cannula 2.0 28 07/24/17 07:50 Nasal Cannula 07/24/17 07:50 Nasal Cannula 07/24/17 04:26 97.3 81 24 150/74 94 Nasal Cannula 07/24/17 04:00 72 07/24/17 04:00 3.0 07/24/17 02:20 72 16 98 Nasal Cannula 3.0 32 07/24/17 02:10 85 20 96 Nasal Cannula 3.0 32 07/24/17 00:07 97.7 74 20 139/73 94 Nasal Cannula 07/23/17 21:00 2.0 07/23/17 21:00 86 07/23/17 20:47 Room Air 07/23/17 20:46 Room Air 21 07/23/17 20:00 97.9 86 20 124/79 96 Room Air 07/23/17 16:51 88 07/23/17 16:00 97.8 78 18 124/64 93 Nasal Cannula 2.0 07/23/17 13:06 76 16 97 Nasal Cannula 3.0 32 07/23/17 12:56 80 20 96 Nasal Cannula 3.0 32 07/23/17 12:00 97.1 90 20 129/70 93 Nasal Cannula 2.0 07/23/17 11:26 78 07/23/17 11:24 80 22 98 Nasal Cannula 3.0 32 07/23/17 11:24 80 18 96 Nasal Cannula 3.0 32 HEENT: anicteric Respiratory/Chest: no respiratory distress Cardiovascular: regularly irregular Abdomen: no mass Laboratory Tests Test 07/24/17 05:40 07/24/17 09:36 White Blood Count 15.1 K/UL (4.8-10.8) H Red Blood Count 4.78 M/UL (4.70-6.10) Hemoglobin 14.3 G/DL (14.2-18.0) Hematocrit 44.2 % (42.0-52.0) Mean Corpuscular Volume 93 FL (80-99) Mean Corpuscular Hemoglobin 30.0 PG (27.0-31.0) Mean Corpuscular Hemoglobin Concent 32.4 G/DL (32.0-36.0) Red Cell Distribution Width 14.3 % (11.6-14.8) Platelet Count 247 K/UL (150-450) Mean Platelet Volume 7.1 FL (6.5-10.1) Neutrophils (%) (Auto) 81.2 % (45.0-75.0) H Lymphocytes (%) (Auto) 14.3 % (20.0-45.0) L Monocytes (%) (Auto) 3.6 % (1.0-10.0) Eosinophils (%) (Auto) 0.2 % (0.0-3.0) Basophils (%) (Auto) 0.7 % (0.0-2.0) Sodium Level 140 MMOL/L (136-145) Potassium Level 4.0 MMOL/L (3.5-5.1) Chloride Level 102 MMOL/L (98-107) Carbon Dioxide Level 34 MMOL/L (21-32) H Anion Gap 5 mmol/L (5-15) Blood Urea Nitrogen 24 mg/dL (7-18) H Creatinine 1.3 MG/DL (0.55-1.30) Estimat Glomerular Filtration Rate 55.2 mL/min (>60) Glucose Level 92 MG/DL (74-106) Calcium Level 8.0 MG/DL (8.5-10.1) L Arterial Blood pH 7.366 (7.350-7.450) Arterial Blood Partial Pressure CO2 62.4 mmHg (35.0-45.0) *H Arterial Blood Partial Pressure O2 76.7 mmHg (75.0-100.0) Arterial Blood HCO3 34.9 mmol/L (22.0-26.0) H Arterial Blood Oxygen Saturation 94.4 % (92.0-98.0) Arterial Blood Base Excess 7.4 Kaiden Test Positive Current Medications Medications (Trade) Dose Ordered Sig/Hi Route PRN Reason Start Time Stop Time Status Last Admin Dose Admin Albuterol/ Ipratropium (Albuterol/ Ipratropium) 3 ml Q4H PRN HHN Shortness of Breath 07/23/17 18:00 07/28/17 17:59 Albuterol/ Ipratropium (Albuterol/ Ipratropium) 3 ml Q6HRT HHN 07/22/17 13:00 07/25/17 14:59 07/24/17 02:09 Alprazolam (Xanax) 1 mg BIDPRN PRN ORAL For Anxiety 07/20/17 18:00 07/27/17 17:59 07/23/17 22:10 Aripiprazole (Abilify) 10 mg DAILY ORAL 07/21/17 09:00 08/15/17 08:59 07/24/17 08:03 Dextrose (Dextrose 50%) STAT PRN IV Hypoglycemia 07/20/17 14:30 08/19/17 14:29 Duloxetine HCl (Cymbalta) 60 mg DAILY ORAL 07/21/17 09:00 08/15/17 08:59 07/24/17 08:03 Guaifenesin (Mucinex ER) 600 mg TWICE A DAY ORAL 07/23/17 18:00 08/22/17 17:59 07/24/17 08:04 Guaifenesin (Robitussin) 100 mg Q4H PRN ORAL For Cough 07/23/17 18:00 08/22/17 17:59 07/24/17 05:56 Heparin Sodium (Porcine) (Heparin 5000 units/ml) 5,000 units EVERY 12 HOURS SUBQ 07/20/17 21:00 08/15/17 08:59 07/24/17 08:00 Lamotrigine (LaMICtal) 100 mg Q12HR ORAL 07/20/17 21:00 08/17/17 20:59 07/24/17 08:03 Morphine Sulfate (Morphine Sulfate) 2 mg Q4H PRN IVP Severe Pain (Pain Scale 7-10) 07/20/17 14:30 07/25/17 14:29 Nitroglycerin (Ntg) 0.4 mg Q5M X 3 DOSES PRN SL Prn Chest Pain 07/20/17 13:30 08/15/17 07:59 Ondansetron HCl (Zofran) 4 mg Q6H PRN IVP Nausea & Vomiting 07/20/17 14:30 08/15/17 08:29 Prednisone (predniSONE) 60 mg DAILY ORAL 07/23/17 09:00 08/22/17 08:59 07/24/17 08:03 Promethazine HCl/ Codeine (Phenergan with Codeine) 5 ml Q6H PRN ORAL cough 07/20/17 14:30 08/17/17 08:29 07/20/17 15:34 Salmeterol Xinafoate/ Fluticasone (Advair 250/50 Diskus) 1 puffs BIDRT INH 07/22/17 11:30 08/21/17 11:29 07/23/17 11:24 Temazepam (Restoril) 15 mg HSPRN PRN ORAL Insomnia 07/20/17 21:00 07/25/17 20:59 Tiotropium [place] (Spiriva Inhaler) 1 puff DAILY INH 07/22/17 12:00 08/21/17 11:59 07/22/17 15:50 ELZA ROJAS M.D. Jul 24, 2017 10:40
[2017-07-24 11:55] VITALS: BP 131/77
--- NOTE | 2017-07-24 13:27 | Pulmonology Progress Note ---
Assessment/Plan Problems: (1) Acute asthma exacerbation (2) severe KAYLEE (3) Morbid obesity (4) NPH (normal pressure hydrocephalus) (5) Viral URI vs bronchitis (6) Dyspnea Assessment/Plan -CXR -Optimize pulmonary hygiene/mobilize as tolerated -Titrate down FiO2 to keep Sao2 > 90% -Continue Pred 60 and slowly taper -Continue Advair and Spiriva -Continue Mucinex and PRN Robitussin -Encourage compliant with NIPPV @ night -Would hold of on Tx to [facility] given he is better, may need SNF vs [facility] -F/U with NSG @ [facility] as planned -Monitor volumes -DVT Px: Hep SQ Subjective Allergies: Coded Allergies: No Known Allergies (Unverified , 07/16/17) Subjective AFVSS, O2 needs stable Refused BiPAP O/N, 7. this am + cough with yellow phlegm, mobilizing freely, no F/C Objective Last 24 Hour Vital Signs Date Time Temp Pulse Resp B/P (MAP) Pulse Ox O2 Delivery O2 Flow Rate FiO2 07/24/17 13:07 76 22 98 Nasal Cannula 3.0 32 07/24/17 12:55 70 24 96 Nasal Cannula 3.0 32 07/24/17 11:55 97.5 74 20 131/77 94 Nasal Cannula 3.0 07/24/17 11:50 82 07/24/17 11:40 78 34 95 Facial 30 07/24/17 10:11 74 20 95 Facial 30 07/24/17 08:05 97.5 81 20 158/74 94 Nasal Cannula 3.0 07/24/17 07:51 Nasal Cannula 2.0 28 07/24/17 07:51 95 Nasal Cannula 2.0 28 07/24/17 07:50 Nasal Cannula 07/24/17 07:50 Nasal Cannula 07/24/17 07:45 85 07/24/17 04:26 97.3 81 24 150/74 94 Nasal Cannula 07/24/17 04:00 72 07/24/17 04:00 3.0 07/24/17 02:20 72 16 98 Nasal Cannula 3.0 32 07/24/17 02:10 85 20 96 Nasal Cannula 3.0 32 07/24/17 00:07 97.7 74 20 139/73 94 Nasal Cannula 07/23/17 21:00 2.0 07/23/17 21:00 86 07/23/17 20:47 Room Air 07/23/17 20:46 Room Air 21 07/23/17 20:00 97.9 86 20 124/79 96 Room Air 07/23/17 16:51 88 07/23/17 16:00 97.8 78 18 124/64 93 Nasal Cannula 2.0 Intake and Output 07/23/17 07/24/17 19:00 07:00 Intake Total 876 ml Output Total 1 ml Balance 875 ml Intake Oral 876 ml Output Urine Total 1 ml # Voids 4 2 # Bowel Movements 2 General Appearance: no acute distress, other - obese male HEENT: normocephalic, atraumatic, other - MP 4 Respiratory/Chest: rhonchi - scattered b, expiratory wheezing Cardiovascular: normal peripheral pulses, normal rate, regular rhythm Abdomen: normal bowel sounds, soft, non tender, no organomegaly, non distended Extremities: no cyanosis, no clubbing, no edema Laboratory Tests 07/24/17 05:40: White Blood Count 15.1H, Red Blood Count 4.78, Hemoglobin 14.3, Hematocrit 44.2 , Mean Corpuscular Volume 93, Mean Corpuscular Hemoglobin 30.0, Mean Corpuscular Hemoglobin Concent 32.4, Red Cell Distribution Width 14.3, Platelet Count 247, Mean Platelet Volume 7.1, Neutrophils (%) (Auto) 81.2H, Lymphocytes ( %) (Auto) 14.3L, Monocytes (%) (Auto) 3.6, Eosinophils (%) (Auto) 0.2, Basophils (%) (Auto) 0.7, Sodium Level 140, Potassium Level 4.0, Chloride Level 102, Carbon Dioxide Level 34H, Anion Gap 5, Blood Urea Nitrogen 24H, Creatinine 1.3, Estimat Glomerular Filtration Rate 55.2, Glucose Level 92, Calcium Level 8.0L 07/24/17 09:36: Arterial Blood pH 7.366, Arterial Blood Partial Pressure CO2 62.4*H, Arterial Blood Partial Pressure O2 76.7, Arterial Blood HCO3 34.9H, Arterial Blood Oxygen Saturation 94.4, Arterial Blood Base Excess 7.4, Kaiden Test Positive Current Medications Medications (Trade) Dose Ordered Sig/Hi Route PRN Reason Start Time Stop Time Status Last Admin Dose Admin Albuterol/ Ipratropium (Albuterol/ Ipratropium) 3 ml Q4H PRN HHN Shortness of Breath 07/23/17 18:00 07/28/17 17:59 Albuterol/ Ipratropium (Albuterol/ Ipratropium) 3 ml Q6HRT HHN 07/22/17 13:00 07/25/17 14:59 07/24/17 13:05 Alprazolam (Xanax) 1 mg BIDPRN PRN ORAL For Anxiety 07/20/17 18:00 07/27/17 17:59 07/23/17 22:10 Aripiprazole (Abilify) 10 mg DAILY ORAL 07/21/17 09:00 08/15/17 08:59 07/24/17 08:03 Dextrose (Dextrose 50%) STAT PRN IV Hypoglycemia 07/20/17 14:30 08/19/17 14:29 Duloxetine HCl (Cymbalta) 60 mg DAILY ORAL 07/21/17 09:00 08/15/17 08:59 07/24/17 08:03 Guaifenesin (Mucinex ER) 600 mg TWICE A DAY ORAL 07/23/17 18:00 08/22/17 17:59 07/24/17 08:04 Guaifenesin (Robitussin) 100 mg Q4H PRN ORAL For Cough 07/23/17 18:00 08/22/17 17:59 07/24/17 05:56 Heparin Sodium (Porcine) (Heparin 5000 units/ml) 5,000 units EVERY 12 HOURS SUBQ 07/20/17 21:00 08/15/17 08:59 07/24/17 08:00 Lamotrigine (LaMICtal) 100 mg Q12HR ORAL 07/20/17 21:00 08/17/17 20:59 07/24/17 08:03 Morphine Sulfate (Morphine Sulfate) 2 mg Q4H PRN IVP Severe Pain (Pain Scale 7-10) 07/20/17 14:30 07/25/17 14:29 Nitroglycerin (Ntg) 0.4 mg Q5M X 3 DOSES PRN SL Prn Chest Pain 07/20/17 13:30 08/15/17 07:59 Ondansetron HCl (Zofran) 4 mg Q6H PRN IVP Nausea & Vomiting 07/20/17 14:30 08/15/17 08:29 Prednisone (predniSONE) 60 mg DAILY ORAL 07/23/17 09:00 08/22/17 08:59 07/24/17 08:03 Promethazine HCl/ Codeine (Phenergan with Codeine) 5 ml Q6H PRN ORAL cough 07/20/17 14:30 08/17/17 08:29 07/20/17 15:34 Salmeterol Xinafoate/ Fluticasone (Advair 250/50 Diskus) 1 puffs BIDRT INH 07/22/17 11:30 08/21/17 11:29 07/23/17 11:24 Temazepam (Restoril) 15 mg HSPRN PRN ORAL Insomnia 07/20/17 21:00 07/25/17 20:59 Tiotropium [place] (Spiriva Inhaler) 1 puff DAILY INH 07/22/17 12:00 08/21/17 11:59 07/22/17 15:50 TOMASA SOUZA M.D. Jul 24, 2017 13:27
--- NOTE | 2017-07-24 15:32 | Diagnostic Imaging Report ---
Indication: Reason For Exam: COUGH Technique: One view of the chest Comparison: 07/22/2017 Findings: Lungs and pleural spaces are clear. Heart size is normal. There is no significant interim change Impression: No acute process
[2017-07-24 16:00] VITALS: BP 155/85
[2017-07-24] MEDS: Albuterol/Ipratropium 3ml neb HHN PRN (17:00)
--- NOTE | 2017-07-24 17:38 | General Progress Note ---
Assessment/Plan Problem List: (1) Morbid obesity ICD Codes: E66.01 - Morbid (severe) obesity due to excess calories SNOMED: 267075210, 18812467356616 (2) History of asthma ICD Codes: Z87.09 - Personal history of other diseases of the respiratory system SNOMED: 173775824 (3) Acute asthma exacerbation ICD Codes: J45.901 - Unspecified asthma with (acute) exacerbation SNOMED: 782717250 (4) Dyspnea ICD Codes: R06.00 - Dyspnea, unspecified SNOMED: 915343373 (5) Respiratory distress ICD Codes: R06.03 - Acute respiratory distress SNOMED: 433218236 (6) Anxiety ICD Codes: F41.9 - Anxiety disorder, unspecified SNOMED: 88126427 (7) NPH (normal pressure hydrocephalus) ICD Codes: G91.2 - (Idiopathic) normal pressure hydrocephalus SNOMED: 15299900 (8) Asthma ICD Codes: J45.909 - Unspecified asthma, uncomplicated SNOMED: 904896936 (9) lives at home with caregiver (10) Acute respiratory failure with hypoxia ICD Codes: J96.01 - Acute respiratory failure with hypoxia SNOMED: 38996355, 836801273 (11) severe KAYLEE (12) Bipolar disorder ICD Codes: F31.9 - Bipolar disorder, unspecified SNOMED: 27864177 (13) Depression ICD Codes: F32.9 - Major depressive disorder, single episode, unspecified SNOMED: 78983353 (14) NOEMÍ (acute kidney injury) ICD Codes: N17.9 - Acute kidney failure, unspecified SNOMED: 28258628 (15) Viral URI vs bronchitis (16) History of craniotomy ICD Codes: Z98.890 - Other specified postprocedural states SNOMED: 06458922, 526308543 Status: stable Assessment/Plan Appreciate pulmonary, ID, psych, neuro rec's Leukocytosis 2/2 steroids Cont abx per ID: zosyn, s/p azithro Cont steroids per pulm--changed to prednisone 60mg daily w/ slow taper Monitor ABG D/c theophylline Cont nebs ATC and PRN Cont O2 and wean off as tolerated Cont CPAP at [id number] qHS Cont home meds Trend CBC, BMP PT eval CM consulted for d/c to SNF ([facility] per pt preference vs guardian) vs ARU ([facility]) DVT Prophylaxis: SCD, HSQ Code Status: Full Hospital Classification Declaration: Based on this initial evaluation, and depending on the patient's clinical course, I anticipate that this patient will require hospitalization for 1-2 days for acute asthma exacerbation and close respiratory/hemodynamic monitoring. Disposition: Once the patient is stable to leave the hospital, I anticipate the patient will likely be discharged to the following environment: home with HH + CG vs SNF vs ARU Discussed with patient/family, nursing staff, SW/CM, pulm regarding clinical status, treatment course, and disposition planning. D/w pt's caregiver regarding mgmt and dispo Subjective Date patient seen: Jul 24, 2017 Allergies: Coded Allergies: No Known Allergies (Unverified , 07/16/17) Subjective continues to feel SOB. denies CP AF, HDS pending placement Objective Last 24 Hour Vital Signs Date Time Temp Pulse Resp B/P (MAP) Pulse Ox O2 Delivery O2 Flow Rate FiO2 07/24/17 17:02 74 20 Nasal Cannula 3.0 32 07/24/17 16:55 70 22 Nasal Cannula 3.0 32 07/24/17 16:00 98.8 83 20 155/85 94 Nasal Cannula 3.0 07/24/17 13:07 76 22 98 Nasal Cannula 3.0 32 07/24/17 12:55 70 24 96 Nasal Cannula 3.0 32 07/24/17 11:55 97.5 74 20 131/77 94 Nasal Cannula 3.0 07/24/17 11:50 82 07/24/17 11:40 78 34 95 Facial 30 07/24/17 10:11 74 20 95 Facial 30 07/24/17 08:05 97.5 81 20 158/74 94 Nasal Cannula 3.0 07/24/17 07:51 Nasal Cannula 2.0 28 07/24/17 07:51 95 Nasal Cannula 2.0 28 07/24/17 07:50 Nasal Cannula 07/24/17 07:50 Nasal Cannula 07/24/17 07:45 85 07/24/17 04:26 97.3 81 24 150/74 94 Nasal Cannula 07/24/17 04:00 72 07/24/17 04:00 3.0 07/24/17 02:20 72 16 98 Nasal Cannula 3.0 32 07/24/17 02:10 85 20 96 Nasal Cannula 3.0 32 07/24/17 00:07 97.7 74 20 139/73 94 Nasal Cannula 07/23/17 21:00 2.0 07/23/17 21:00 86 07/23/17 20:47 Room Air 07/23/17 20:46 Room Air 21 07/23/17 20:00 97.9 86 20 124/79 96 Room Air Intake and Output 07/23/17 07/24/17 19:00 07:00 Intake Total 876 ml Output Total 1 ml Balance 875 ml Intake Oral 876 ml Output Urine Total 1 ml # Voids 4 2 # Bowel Movements 2 Laboratory Tests 07/24/17 05:40: White Blood Count 15.1H, Red Blood Count 4.78, Hemoglobin 14.3, Hematocrit 44.2 , Mean Corpuscular Volume 93, Mean Corpuscular Hemoglobin 30.0, Mean Corpuscular Hemoglobin Concent 32.4, Red Cell Distribution Width 14.3, Platelet Count 247, Mean Platelet Volume 7.1, Neutrophils (%) (Auto) 81.2H, Lymphocytes ( %) (Auto) 14.3L, Monocytes (%) (Auto) 3.6, Eosinophils (%) (Auto) 0.2, Basophils (%) (Auto) 0.7, Sodium Level 140, Potassium Level 4.0, Chloride Level 102, Carbon Dioxide Level 34H, Anion Gap 5, Blood Urea Nitrogen 24H, Creatinine 1.3, Estimat Glomerular Filtration Rate 55.2, Glucose Level 92, Calcium Level 8.0L 07/24/17 09:36: Arterial Blood pH 7.366, Arterial Blood Partial Pressure CO2 62.4*H, Arterial Blood Partial Pressure O2 76.7, Arterial Blood HCO3 34.9H, Arterial Blood Oxygen Saturation 94.4, Arterial Blood Base Excess 7.4, [place] Test Positive General Appearance: alert, mild distress EENT: PERRL/EOMI Neck: non-tender, normal alignment, supple Cardiovascular: normal peripheral pulses, normal rate, regular rhythm Respiratory/Chest: respiratory distress, crackles/rales Abdomen: normal bowel sounds, non tender, soft Aleta Casiano N.P. Jul 24, 2017 17:38
[2017-07-24 20:18] VITALS: BP 137/72
--- NOTE | 2017-07-24 21:45 | Progress Note ---
SUBJECTIVE: The patient is hard of hearing. Otherwise, he has some anxiety. Compliant with medications. No behavioral issues. His caregiver is at bedside. MENTAL STATUS EXAMINATION: Mood is neutral. Affect is constricted. Congruent with mood. Thought process is concrete. Thought content, no suicidal or homicidal ideations. ASSESSMENT: Anxiety disorder. PLAN: We will continue current medications. Rina Damon M.D. DR: JORJE JOB#: [id number] CC:
[2017-07-25 00:32] VITALS: BP 149/87
[2017-07-25] MEDS: Albuterol/Ipratropium 3ml neb HHN SCH ×3 (01:00→12:13)
[2017-07-25 04:09] VITALS: BP 148/77
[2017-07-25 08:00] VITALS: BP 146/83
[2017-07-25] MEDS: guaiFENesin 100mg/5ml Liq ud ORAL PRN (08:17)
[2017-07-25] MEDS: ARIPiprazole 10mg tab ORAL SCH (08:17)
[2017-07-25] MEDS: DULoxetine 30mg cap ORAL SCH (08:17)
[2017-07-25] MEDS: Heparin 5000 units/ml inj SUBQ SCH ×2 (08:23→21:51)
[2017-07-25] MEDS: guaiFENesin ER 600mg tab ORAL SCH ×2 (08:29→17:28)
[2017-07-25] MEDS: Advair 250/50 Inhaler - 14 dose INH SCH ×2 (09:32→21:41)
[2017-07-25] MEDS: Albuterol/Ipratropium 3ml neb HHN PRN ×3 (12:07→23:19)
--- NOTE | 2017-07-25 12:49 | Pulmonology Progress Note ---
Assessment/Plan Problems: (1) Acute asthma exacerbation (2) severe KAYLEE (3) Morbid obesity (4) NPH (normal pressure hydrocephalus) (5) Viral URI vs bronchitis (6) Dyspnea Assessment/Plan -CXR stable -Optimize pulmonary hygiene/mobilize as tolerated -Titrate down FiO2 to keep Sao2 > 90% -Decrease Pred to 40 and slowly taper -Continue Advair and Spiriva -Continue Mucinex and PRN Robitussin -Encourage compliant with NIPPV @ night -F/U with NSG @ [facility] as planned -Monitor volumes -DVT Px: Hep SQ -Dispo planning to SNF Subjective Allergies: Coded Allergies: No Known Allergies (Unverified , 07/16/17) Subjective AFVSS, O2 needs stable CXR stable, did not use BiPAP Feels better less cough with yellow phlegm, mobilizing freely, no F/C Objective Last 24 Hour Vital Signs Date Time Temp Pulse Resp B/P (MAP) Pulse Ox O2 Delivery O2 Flow Rate FiO2 07/25/17 12:12 79 22 98 Nasal Cannula 2.0 28 07/25/17 12:07 78 22 97 Nasal Cannula 2.0 28 07/25/17 08:00 77 07/25/17 08:00 97.1 77 20 146/83 93 Nasal Cannula 07/25/17 07:08 79 20 98 Nasal Cannula 2.0 28 07/25/17 06:57 72 22 97 Nasal Cannula 2.0 28 07/25/17 06:56 Nasal Cannula 2.0 28 07/25/17 06:56 98 Nasal Cannula 2.0 28 07/25/17 06:56 74 20 Nasal Cannula 2.0 28 07/25/17 04:09 97.5 64 19 148/77 95 Nasal Cannula 07/25/17 04:00 3.0 07/25/17 04:00 64 07/25/17 01:44 Nasal Cannula 3.0 32 07/25/17 01:43 Nasal Cannula 3.0 32 07/25/17 00:32 97.7 78 18 149/87 97 Nasal Cannula 07/25/17 00:16 Nasal Cannula 2.0 28 07/25/17 00:15 96 Nasal Cannula 2.0 28 07/25/17 00:00 66 07/25/17 00:00 30 07/24/17 23:22 86 18 97 Facial 30 07/24/17 21:17 80 17 96 Facial 30 07/24/17 20:18 97.7 74 18 137/72 97 Nasal Cannula 07/24/17 20:00 30 07/24/17 20:00 73 07/24/17 19:24 Nasal Cannula 07/24/17 19:22 82 26 96 Facial 30 07/24/17 19:21 82 20 Bi-pap 30 07/24/17 17:02 74 20 Nasal Cannula 3.0 32 07/24/17 16:55 70 22 Nasal Cannula 3.0 32 07/24/17 16:00 98.8 83 20 155/85 94 Nasal Cannula 3.0 07/24/17 15:10 80 07/24/17 13:07 76 22 98 Nasal Cannula 3.0 32 07/24/17 12:55 70 24 96 Nasal Cannula 3.0 32 Intake and Output 07/24/17 07/25/17 19:00 07:00 Intake Total 630 ml Output Total 400 ml Balance 630 ml -400 ml Intake Oral 630 ml Output Urine Total 400 ml # Voids 3 # Bowel Movements 4 General Appearance: WD/WN, no acute distress, other - obese male HEENT: normocephalic, atraumatic, mucous membranes moist, other - MP 4 Respiratory/Chest: chest wall non-tender, expiratory wheezing - decreasd Cardiovascular: normal peripheral pulses, normal rate, regular rhythm Abdomen: normal bowel sounds, soft, non tender, no organomegaly, non distended , no mass Extremities: no cyanosis, no clubbing, no edema Current Medications Medications (Trade) Dose Ordered Sig/Hi Route PRN Reason Start Time Stop Time Status Last Admin Dose Admin Albuterol/ Ipratropium (Albuterol/ Ipratropium) 3 ml Q4H PRN HHN Shortness of Breath 07/23/17 18:00 07/28/17 17:59 07/25/17 12:07 Albuterol/ Ipratropium (Albuterol/ Ipratropium) 3 ml Q6HRT HHN 07/22/17 13:00 07/25/17 14:59 07/25/17 06:56 Alprazolam (Xanax) 1 mg BIDPRN PRN ORAL For Anxiety 07/20/17 18:00 07/27/17 17:59 07/23/17 22:10 Aripiprazole (Abilify) 10 mg DAILY ORAL 07/21/17 09:00 08/15/17 08:59 07/25/17 08:17 Dextrose (Dextrose 50%) STAT PRN IV Hypoglycemia 07/20/17 14:30 08/19/17 14:29 Duloxetine HCl (Cymbalta) 60 mg DAILY ORAL 07/21/17 09:00 08/15/17 08:59 07/25/17 08:17 Guaifenesin (Mucinex ER) 600 mg TWICE A DAY ORAL 07/23/17 18:00 08/22/17 17:59 07/25/17 08:29 Guaifenesin (Robitussin) 100 mg Q4H PRN ORAL For Cough 07/23/17 18:00 08/22/17 17:59 07/25/17 08:17 Heparin Sodium (Porcine) (Heparin 5000 units/ml) 5,000 units EVERY 12 HOURS SUBQ 07/20/17 21:00 08/15/17 08:59 07/25/17 08:23 Lamotrigine (LaMICtal) 100 mg Q12HR ORAL 07/20/17 21:00 08/17/17 20:59 07/25/17 08:17 Morphine Sulfate (Morphine Sulfate) 2 mg Q4H PRN IVP Severe Pain (Pain Scale 7-10) 07/20/17 14:30 07/25/17 14:29 Nitroglycerin (Ntg) 0.4 mg Q5M X 3 DOSES PRN SL Prn Chest Pain 07/20/17 13:30 08/15/17 07:59 Ondansetron HCl (Zofran) 4 mg Q6H PRN IVP Nausea & Vomiting 07/20/17 14:30 08/15/17 08:29 Prednisone (predniSONE) 60 mg DAILY ORAL 07/23/17 09:00 08/22/17 08:59 07/25/17 08:16 Promethazine HCl/ Codeine (Phenergan with Codeine) 5 ml Q6H PRN ORAL cough 07/20/17 14:30 08/17/17 08:29 07/20/17 15:34 Salmeterol Xinafoate/ Fluticasone (Advair 250/50 Diskus) 1 puffs BIDRT INH 07/22/17 11:30 08/21/17 11:29 07/25/17 09:32 Temazepam (Restoril) 15 mg HSPRN PRN ORAL Insomnia 07/20/17 21:00 07/25/17 20:59 Tiotropium [place] (Spiriva Inhaler) 1 puff DAILY INH 07/22/17 12:00 08/21/17 11:59 07/25/17 09:33 TOMASA SOUZA M.D. Jul 25, 2017 12:49
[2017-07-25] MEDS ORDERED: ADVAIR 250/501 PUFFS INH (13:55)
[2017-07-25] MEDS ORDERED: GUAIFENESI100 MG/5 M ORAL (13:55)
[2017-07-25] MEDS ORDERED: PROMETHAZINE-C118 M1 ORAL (13:55)
[2017-07-25] MEDS ORDERED: SPIRIVA INHALE1 PUF1 INH (13:55)
[2017-07-25] MEDS ORDERED: XANAX0.5 MG ORAL (13:55)
[2017-07-25] MEDS ORDERED: DUONEB 0.5-3(2.53 ML HHN ×2 (13:55)
[2017-07-25] MEDS ORDERED: PREDNISONE10 MG ORAL (13:59)
--- NOTE | 2017-07-25 13:59 | Discharge Summary ---
Discharge Summary Hospital Course Date of Admission Jul 16, 2017 at 04:04 Date of Discharge Admitting Diagnosis RESPIRATORY DISTRESS HPI Giancarlo Ray is a 67 year old male who was admitted on Jul 16, 2017 at 04:04 for Respiratory Distress Discharge Discharge Disposition Patient was discharged to SNF/Subacute Facility(03) Discharge Diagnoses: Ulysses Boyer M.D. Jul 25, 2017 13:59
[2017-07-25] MEDS ORDERED: MUCINEX600 MG ORAL (14:00)
[2017-07-25 15:55] VITALS: BP 136/85
--- NOTE | 2017-07-25 19:29 | Infectious Diseases Prog Note ---
Assessment/Plan Assessment/Plan ASSESSMENT: The patient is a 67-year-old male with: Leukocytosis ( 2/2 steroids ) increased Asthma exacerbation Possible pneumonia Scx: no sig growth , SP Rx Cxray : NAPD Viral upper respiratory tract infection, Rapid influenza test: Neg Asthma. Bipolar disorder. Depression. PLAN: monitor pt off of AB Rx 07/22 SP Zithromax d# 7 / 7 SP Zosyn d# 3 Monitor chest x-ray. 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, surgery tentatively scheduled for 07/31 BiPAP PRN Subjective Allergies: Coded Allergies: No Known Allergies (Unverified , 07/16/17) Subjective afebirle Objective Vital Signs Last 24 Hour Vital Signs Date Time Temp Pulse Resp B/P (MAP) Pulse Ox O2 Delivery O2 Flow Rate FiO2 07/25/17 16:22 98 22 97 Nasal Cannula 2.0 28 07/25/17 16:20 93 22 96 Nasal Cannula 2.0 28 07/25/17 16:00 90 07/25/17 15:55 97.7 93 20 136/85 95 Nasal Cannula 07/25/17 12:12 79 22 98 Nasal Cannula 2.0 28 07/25/17 12:07 78 22 97 Nasal Cannula 2.0 28 07/25/17 12:00 73 07/25/17 08:00 77 07/25/17 08:00 97.1 77 20 146/83 93 Nasal Cannula 07/25/17 07:08 79 20 98 Nasal Cannula 2.0 28 07/25/17 06:57 72 22 97 Nasal Cannula 2.0 28 07/25/17 06:56 Nasal Cannula 2.0 28 07/25/17 06:56 98 Nasal Cannula 2.0 28 07/25/17 06:56 74 20 Nasal Cannula 2.0 28 07/25/17 04:09 97.5 64 19 148/77 95 Nasal Cannula 07/25/17 04:00 3.0 07/25/17 04:00 64 07/25/17 01:44 Nasal Cannula 3.0 32 07/25/17 01:43 Nasal Cannula 3.0 32 07/25/17 00:32 97.7 78 18 149/87 97 Nasal Cannula 07/25/17 00:16 Nasal Cannula 2.0 28 07/25/17 00:15 96 Nasal Cannula 2.0 28 07/25/17 00:00 66 07/25/17 00:00 30 07/24/17 23:22 86 18 97 Facial 30 07/24/17 21:17 80 17 96 Facial 30 07/24/17 20:18 97.7 74 18 137/72 97 Nasal Cannula 07/24/17 20:00 30 07/24/17 20:00 73 HEENT: mucous membranes moist Respiratory/Chest: no respiratory distress Cardiovascular: regularly irregular Abdomen: no organomegaly Current Medications Medications (Trade) Dose Ordered Sig/Hi Route PRN Reason Start Time Stop Time Status Last Admin Dose Admin Albuterol/ Ipratropium (Albuterol/ Ipratropium) 3 ml Q4H PRN HHN Shortness of Breath 07/23/17 18:00 07/28/17 17:59 07/25/17 16:18 Alprazolam (Xanax) 1 mg BIDPRN PRN ORAL For Anxiety 07/20/17 18:00 07/27/17 17:59 07/23/17 22:10 Aripiprazole (Abilify) 10 mg DAILY ORAL 07/21/17 09:00 08/15/17 08:59 07/25/17 08:17 Dextrose (Dextrose 50%) STAT PRN IV Hypoglycemia 07/20/17 14:30 08/19/17 14:29 Duloxetine HCl (Cymbalta) 60 mg DAILY ORAL 07/21/17 09:00 08/15/17 08:59 07/25/17 08:17 Guaifenesin (Mucinex ER) 600 mg TWICE A DAY ORAL 07/23/17 18:00 08/22/17 17:59 07/25/17 17:28 Guaifenesin (Robitussin) 100 mg Q4H PRN ORAL For Cough 07/23/17 18:00 08/22/17 17:59 07/25/17 08:17 Heparin Sodium (Porcine) (Heparin 5000 units/ml) 5,000 units EVERY 12 HOURS SUBQ 07/20/17 21:00 08/15/17 08:59 07/25/17 08:23 Lamotrigine (LaMICtal) 100 mg Q12HR ORAL 07/20/17 21:00 08/17/17 20:59 07/25/17 08:17 Nitroglycerin (Ntg) 0.4 mg Q5M X 3 DOSES PRN SL Prn Chest Pain 07/20/17 13:30 08/15/17 07:59 Ondansetron HCl (Zofran) 4 mg Q6H PRN IVP Nausea & Vomiting 07/20/17 14:30 08/15/17 08:29 Prednisone (predniSONE) 40 mg DAILY ORAL 07/26/17 09:00 08/25/17 08:59 Promethazine HCl/ Codeine (Phenergan with Codeine) 5 ml Q6H PRN ORAL cough 07/20/17 14:30 08/17/17 08:29 07/20/17 15:34 Salmeterol Xinafoate/ Fluticasone (Advair 250/50 Diskus) 1 puffs BIDRT INH 07/22/17 11:30 08/21/17 11:29 07/25/17 09:32 Temazepam (Restoril) 15 mg HSPRN PRN ORAL Insomnia 07/20/17 21:00 07/25/17 20:59 Tiotropium [place] (Spiriva Inhaler) 1 puff DAILY INH 07/22/17 12:00 08/21/17 11:59 07/25/17 09:33 ELZA ROJAS M.D. Jul 25, 2017 19:29
[2017-07-25 20:27] VITALS: BP 117/64
[2017-07-26] MEDS: ALPRAZolam 0.5mg tab ORAL PRN (00:38)
[2017-07-26 00:41] VITALS: BP 128/65
--- NOTE | 2017-07-26 02:52 | General Progress Note ---
Assessment/Plan Problem List: (1) Acute asthma exacerbation ICD Codes: J45.901 - Unspecified asthma with (acute) exacerbation SNOMED: 973933982 (2) Viral URI vs bronchitis (3) Acute respiratory failure with hypoxia ICD Codes: J96.01 - Acute respiratory failure with hypoxia SNOMED: 85299028, 743331831 (4) Morbid obesity ICD Codes: E66.01 - Morbid (severe) obesity due to excess calories SNOMED: 165119038, 89424425409783 (5) severe KAYLEE (6) NOEMÍ (acute kidney injury) ICD Codes: N17.9 - Acute kidney failure, unspecified SNOMED: 75784436 (7) NPH (normal pressure hydrocephalus) ICD Codes: G91.2 - (Idiopathic) normal pressure hydrocephalus SNOMED: 29466929 (8) Anxiety ICD Codes: F41.9 - Anxiety disorder, unspecified SNOMED: 26231382 (9) Bipolar disorder ICD Codes: F31.9 - Bipolar disorder, unspecified SNOMED: 02080649 (10) Depression ICD Codes: F32.9 - Major depressive disorder, single episode, unspecified SNOMED: 97155861 Status: stable Assessment/Plan Appreciate pulmonary, ID, psych, neuro rec's Cont abx per ID: zosyn, s/p azithro Cont steroids w/ slow taper per pulm--changed to prednisone 40mg daily Monitor ABG D/c theophylline Cont nebs ATC and PRN Cont O2 and wean off as tolerated Cont CPAP at [id number] qHS Cont home meds Trend CBC, BMP PT eval CM consulted for d/c to SNF ([facility] per pt preference vs guardian) vs ARU ([facility]) DVT Prophylaxis: SCD, HSQ Code Status: Full Hospital Classification Declaration: Based on this initial evaluation, and depending on the patient's clinical course, I anticipate that this patient will require hospitalization for 1-2 days for acute asthma exacerbation and close respiratory/hemodynamic monitoring. Disposition: Once the patient is stable to leave the hospital, I anticipate the patient will likely be discharged to the following environment: home with HH + CG vs SNF vs ARU Discussed with patient/family, nursing staff, SW/CM, pulm regarding clinical status, treatment course, and disposition planning. D/w pt's caregiver regarding mgmt and dispo Subjective Date patient seen: Jul 25, 2017 Time patient seen: 14:00 ROS Limited/Unobtainable: No Constitutional: Reports: no symptoms HEENT: Reports: no symptoms Cardiovascular: Reports: no symptoms Respiratory: Reports: cough, shortness of breath, SOB with excertion Gastrointestinal/Abdominal: Reports: no symptoms Genitourinary: Reports: no symptoms Neurologic/Psychiatric: Reports: no symptoms Endocrine: Reports: no symptoms Hematologic/Lymphatic: Reports: no symptoms Allergies: Coded Allergies: No Known Allergies (Unverified , 07/16/17) Subjective No acute o/n events Cough, SOB improving. Pt wants to leave the hospital Awaiting SNF placement Objective Last 24 Hour Vital Signs Date Time Temp Pulse Resp B/P (MAP) Pulse Ox O2 Delivery O2 Flow Rate FiO2 07/26/17 01:30 Nasal Cannula 2.0 07/26/17 01:30 Nasal Cannula 2.0 07/26/17 00:41 97.2 74 18 128/65 94 Nasal Cannula 07/25/17 23:29 86 22 96 Nasal Cannula 2.0 28 07/25/17 23:19 84 23 94 Nasal Cannula 2.0 28 07/25/17 21:46 97 07/25/17 20:27 99.1 62 19 117/64 94 Nasal Cannula 07/25/17 20:00 71 07/25/17 19:30 Nasal Cannula 2.0 07/25/17 19:30 Nasal Cannula 2.0 28 07/25/17 19:30 Nasal Cannula 2.0 28 07/25/17 19:30 96 Nasal Cannula 2.0 28 07/25/17 16:22 98 22 97 Nasal Cannula 2.0 07/25/17 16:20 93 22 96 Nasal Cannula 2.0 28 07/25/17 16:00 90 07/25/17 15:55 97.7 93 20 136/85 95 Nasal Cannula 07/25/17 12:12 79 22 98 Nasal Cannula 2.0 28 07/25/17 12:07 78 22 97 Nasal Cannula 2.0 07/25/17 12:00 73 07/25/17 08:00 77 07/25/17 08:00 97.1 77 20 146/83 93 Nasal Cannula 07/25/17 07:08 79 20 98 Nasal Cannula 2.0 07/25/17 06:57 72 22 97 Nasal Cannula 2.0 07/25/17 06:56 Nasal Cannula 2.0 28 07/25/17 06:56 98 Nasal Cannula 2.0 28 07/25/17 06:56 74 20 Nasal Cannula 2.0 28 07/25/17 04:09 97.5 64 19 148/77 95 Nasal Cannula 07/25/17 04:00 3.0 07/25/17 04:00 64 Intake and Output 07/25/17 07/26/17 19:00 07:00 Intake Total 360 ml Balance 360 ml Intake Oral 360 ml # Voids 3 Objective General: alert, cooperative, no distress, appears stated age, obese Head: normocephalic, without obvious abnormality, atraumatic Eyes: conjunctivae/corneas clear. PERRL, EOM's intact Throat: lips, mucosa, and tongue normal. MMM Neck: supple, symmetrical, trachea midline, and no JVD Lungs: +wheezing b/l, decreased breath sounds b/l Heart: regular rate and rhythm, S1, S2 normal, no murmur, click, rub or gallop Abdomen: soft, non-tender, non-distended, bowel sounds normal; obese abd Extremities: extremities normal, atraumatic, no cyanosis, trace BLE edema Pulses: 2+ and symmetric Skin: skin color, texture, turgor normal; no rashes or lesions Neurologic: grossly normal, no focal deficits Ulysses Boyre M.D. Jul 26, 2017 02:52
[2017-07-26 04:13] VITALS: BP 118/62
[2017-07-26] MEDS: Albuterol/Ipratropium 3ml neb HHN SCH ×3 (07:32→19:00)
[2017-07-26] MEDS: Advair 250/50 Inhaler - 14 dose INH SCH ×2 (07:33→19:38)
[2017-07-26 08:00] VITALS: BP 120/74
[2017-07-26] MEDS: ARIPiprazole 10mg tab ORAL SCH (08:41)
[2017-07-26] MEDS: DULoxetine 30mg cap ORAL SCH (08:41)
[2017-07-26] MEDS: Heparin 5000 units/ml inj SUBQ SCH ×2 (08:42→21:22)
[2017-07-26] MEDS: guaiFENesin ER 600mg tab ORAL SCH ×2 (08:42→17:31)
[2017-07-26 12:00] VITALS: BP 131/72
[2017-07-26 16:00] VITALS: BP 140/81
--- NOTE | 2017-07-26 17:35 | Pulmonology Progress Note ---
Assessment/Plan Problems: (1) Acute asthma exacerbation (2) severe KAYLEE (3) Morbid obesity (4) NPH (normal pressure hydrocephalus) (5) Viral URI vs bronchitis (6) Dyspnea Assessment/Plan -Optimize pulmonary hygiene/mobilize as tolerated -Titrate down FiO2 to keep Sao2 > 90% -Continue Pred 40 and slowly taper -Continue Advair and Spiriva -Continue Mucinex and PRN Robitussin -Encourage compliant with NIPPV @ night -F/U with NSG @ [facility] as planned -Monitor volumes -DVT Px: Hep SQ -Dispo planning to SNF Subjective Allergies: Coded Allergies: No Known Allergies (Unverified , 07/16/17) Subjective AFVSS, O2 needs stable CXR stable Feels better less cough with yellow phlegm, mobilizing freely, no F/C Objective Last 24 Hour Vital Signs Date Time Temp Pulse Resp B/P (MAP) Pulse Ox O2 Delivery O2 Flow Rate FiO2 07/26/17 16:00 97.4 70 20 140/81 94 Nasal Cannula 2.0 07/26/17 13:20 81 18 98 Nasal Cannula 2.0 07/26/17 13:20 88 20 98 Nasal Cannula 2.0 28 07/26/17 13:20 28 07/26/17 12:00 97.3 70 18 131/72 99 Nasal Cannula 2.0 07/26/17 12:00 68 07/26/17 08:00 87 07/26/17 08:00 97.1 81 18 120/74 98 Nasal Cannula 2.0 07/26/17 07:38 74 20 97 Nasal Cannula 2.0 07/26/17 07:36 28 07/26/17 07:35 72 22 97 Nasal Cannula 2.0 07/26/17 07:34 Nasal Cannula 2.0 28 07/26/17 07:33 97 Nasal Cannula 2.0 28 07/26/17 04:13 97.0 68 18 118/62 97 Nasal Cannula 07/26/17 04:00 72 07/26/17 01:30 Nasal Cannula 2.0 28 07/26/17 01:30 Nasal Cannula 2.0 07/26/17 00:41 97.2 74 18 128/65 94 Nasal Cannula 07/26/17 00:00 73 07/25/17 23:29 86 22 96 Nasal Cannula 2.0 07/25/17 23:19 84 23 94 Nasal Cannula 2.0 28 07/25/17 21:46 97 07/25/17 20:27 99.1 62 19 117/64 94 Nasal Cannula 07/25/17 20:00 71 07/25/17 19:30 Nasal Cannula 2.0 28 07/25/17 19:30 Nasal Cannula 2.0 28 07/25/17 19:30 Nasal Cannula 2.0 28 07/25/17 19:30 96 Nasal Cannula 2.0 28 Intake and Output 07/25/17 07/26/17 19:00 07:00 Intake Total 360 ml Output Total 400 ml Balance 360 ml -400 ml Intake Oral 360 ml Output Urine Total 400 ml # Voids 3 General Appearance: WD/WN, no acute distress, other - obese male HEENT: normocephalic, atraumatic, other - MP 4 Respiratory/Chest: chest wall non-tender, lungs clear, normal breath sounds, no respiratory distress Cardiovascular: normal peripheral pulses, normal rate, regular rhythm Abdomen: normal bowel sounds, soft, non tender, no organomegaly, non distended , no mass Extremities: no cyanosis, no clubbing, no edema Current Medications Medications (Trade) Dose Ordered Sig/Hi Route PRN Reason Start Time Stop Time Status Last Admin Dose Admin Albuterol/ Ipratropium (Albuterol/ Ipratropium) 3 ml Q4H PRN HHN Shortness of Breath 07/23/17 18:00 07/28/17 17:59 07/25/17 23:19 Albuterol/ Ipratropium (Albuterol/ Ipratropium) 3 ml Q6HRT HHN 07/26/17 07:00 07/31/17 06:59 07/26/17 13:19 Alprazolam (Xanax) 1 mg BIDPRN PRN ORAL For Anxiety 07/20/17 18:00 07/27/17 17:59 07/26/17 00:38 Aripiprazole (Abilify) 10 mg DAILY ORAL 07/21/17 09:00 08/15/17 08:59 07/26/17 08:41 Dextrose (Dextrose 50%) STAT PRN IV Hypoglycemia 07/20/17 14:30 08/19/17 14:29 Duloxetine HCl (Cymbalta) 60 mg DAILY ORAL 07/21/17 09:00 08/15/17 08:59 07/26/17 08:41 Guaifenesin (Mucinex ER) 600 mg TWICE A DAY ORAL 07/23/17 18:00 08/22/17 17:59 07/26/17 17:31 Guaifenesin (Robitussin) 100 mg Q4H PRN ORAL For Cough 07/23/17 18:00 08/22/17 17:59 07/25/17 08:17 Heparin Sodium (Porcine) (Heparin 5000 units/ml) 5,000 units EVERY 12 HOURS SUBQ 07/20/17 21:00 08/15/17 08:59 07/25/17 21:51 Lamotrigine (LaMICtal) 100 mg Q12HR ORAL 07/20/17 21:00 08/17/17 20:59 07/26/17 08:41 Nitroglycerin (Ntg) 0.4 mg Q5M X 3 DOSES PRN SL Prn Chest Pain 07/20/17 13:30 08/15/17 07:59 Ondansetron HCl (Zofran) 4 mg Q6H PRN IVP Nausea & Vomiting 07/20/17 14:30 08/15/17 08:29 Prednisone (predniSONE) 40 mg DAILY ORAL 07/26/17 09:00 08/25/17 08:59 07/26/17 08:42 Promethazine HCl/ Codeine (Phenergan with Codeine) 5 ml Q6H PRN ORAL cough 07/20/17 14:30 08/17/17 08:29 07/20/17 15:34 Salmeterol Xinafoate/ Fluticasone (Advair 250/50 Diskus) 1 puffs BIDRT INH 07/22/17 11:30 08/21/17 11:29 07/26/17 07:33 Tiotropium [place] (Spiriva Inhaler) 1 puff DAILY INH 07/22/17 12:00 08/21/17 11:59 07/26/17 07:32 TOMASA SOUZA M.D. Jul 26, 2017 17:35
[2017-07-26] MEDS: Albuterol/Ipratropium 3ml neb HHN PRN (17:52)
--- NOTE | 2017-07-26 18:56 | Infectious Diseases Prog Note ---
Assessment/Plan Assessment/Plan ASSESSMENT: The patient is a 67-year-old male with: Leukocytosis ( 2/2 steroids ) Asthma exacerbation Possible pneumonia Scx: no sig growth , SP Rx Cxray : NAPD Viral upper respiratory tract infection, Rapid influenza test: Neg Asthma. Bipolar disorder. Depression. PLAN: monitor pt off of AB Rx 07/22 SP Zithromax d# 7 / 7 SP Zosyn d# 3 Monitor chest x-ray. 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, surgery tentatively scheduled for 07/31 BiPAP PRN Subjective Constitutional: Denies: no symptoms, fever, chills, fatigue, anorexia, drenching sweats, other Allergies: Coded Allergies: No Known Allergies (Unverified , 07/16/17) Subjective afebirle Objective Vital Signs Last 24 Hour Vital Signs Date Time Temp Pulse Resp B/P (MAP) Pulse Ox O2 Delivery O2 Flow Rate FiO2 07/26/17 17:53 70 20 94 Nasal Cannula 2.0 28 07/26/17 17:53 28 07/26/17 17:53 70 20 94 Nasal Cannula 2.0 28 07/26/17 16:00 97.4 70 20 140/81 94 Nasal Cannula 2.0 28 07/26/17 13:20 81 18 98 Nasal Cannula 2.0 07/26/17 13:20 88 20 98 Nasal Cannula 2.0 28 07/26/17 13:20 28 07/26/17 12:00 97.3 70 18 131/72 99 Nasal Cannula 2.0 07/26/17 12:00 68 07/26/17 08:00 87 07/26/17 08:00 97.1 81 18 120/74 98 Nasal Cannula 2.0 07/26/17 07:38 74 20 97 Nasal Cannula 2.0 28 07/26/17 07:36 28 07/26/17 07:35 72 22 97 Nasal Cannula 2.0 07/26/17 07:34 Nasal Cannula 2.0 07/26/17 07:33 97 Nasal Cannula 2.0 07/26/17 04:13 97.0 68 18 118/62 97 Nasal Cannula 07/26/17 04:00 72 07/26/17 01:30 Nasal Cannula 2.0 07/26/17 01:30 Nasal Cannula 2.0 28 07/26/17 00:41 97.2 74 18 128/65 94 Nasal Cannula 07/26/17 00:00 73 07/25/17 23:29 86 22 96 Nasal Cannula 2.0 28 07/25/17 23:19 84 23 94 Nasal Cannula 2.0 28 07/25/17 21:46 97 07/25/17 20:27 99.1 62 19 117/64 94 Nasal Cannula 07/25/17 20:00 71 07/25/17 19:30 Nasal Cannula 2.0 28 07/25/17 19:30 Nasal Cannula 2.0 28 07/25/17 19:30 Nasal Cannula 2.0 28 07/25/17 19:30 96 Nasal Cannula 2.0 28 HEENT: mucous membranes moist Respiratory/Chest: no respiratory distress Cardiovascular: regularly irregular Abdomen: no organomegaly Current Medications Medications (Trade) Dose Ordered Sig/Hi Route PRN Reason Start Time Stop Time Status Last Admin Dose Admin Albuterol/ Ipratropium (Albuterol/ Ipratropium) 3 ml Q4H PRN HHN Shortness of Breath 07/23/17 18:00 07/28/17 17:59 07/26/17 17:52 Albuterol/ Ipratropium (Albuterol/ Ipratropium) 3 ml Q6HRT HHN 07/26/17 07:00 07/31/17 06:59 07/26/17 13:19 Alprazolam (Xanax) 1 mg BIDPRN PRN ORAL For Anxiety 07/20/17 18:00 07/27/17 17:59 07/26/17 00:38 Aripiprazole (Abilify) 10 mg DAILY ORAL 07/21/17 09:00 08/15/17 08:59 07/26/17 08:41 Dextrose (Dextrose 50%) STAT PRN IV Hypoglycemia 07/20/17 14:30 08/19/17 14:29 Duloxetine HCl (Cymbalta) 60 mg DAILY ORAL 07/21/17 09:00 08/15/17 08:59 07/26/17 08:41 Guaifenesin (Mucinex ER) 600 mg TWICE A DAY ORAL 07/23/17 18:00 08/22/17 17:59 07/26/17 17:31 Guaifenesin (Robitussin) 100 mg Q4H PRN ORAL For Cough 07/23/17 18:00 08/22/17 17:59 07/25/17 08:17 Heparin Sodium (Porcine) (Heparin 5000 units/ml) 5,000 units EVERY 12 HOURS SUBQ 07/20/17 21:00 08/15/17 08:59 07/25/17 21:51 Lamotrigine (LaMICtal) 100 mg Q12HR ORAL 07/20/17 21:00 08/17/17 20:59 07/26/17 08:41 Nitroglycerin (Ntg) 0.4 mg Q5M X 3 DOSES PRN SL Prn Chest Pain 07/20/17 13:30 08/15/17 07:59 Ondansetron HCl (Zofran) 4 mg Q6H PRN IVP Nausea & Vomiting 07/20/17 14:30 08/15/17 08:29 Prednisone (predniSONE) 40 mg DAILY ORAL 07/26/17 09:00 08/25/17 08:59 07/26/17 08:42 Promethazine HCl/ Codeine (Phenergan with Codeine) 5 ml Q6H PRN ORAL cough 07/20/17 14:30 08/17/17 08:29 07/20/17 15:34 Salmeterol Xinafoate/ Fluticasone (Advair 250/50 Diskus) 1 puffs BIDRT INH 07/22/17 11:30 08/21/17 11:29 07/26/17 07:33 Tiotropium [place] (Spiriva Inhaler) 1 puff DAILY INH 07/22/17 12:00 08/21/17 11:59 07/26/17 07:32 ELZA ROJAS M.D. Jul 26, 2017 18:56
[2017-07-26 20:00] VITALS: BP 121/77
[2017-07-27] VITALS: BP 134/74
[2017-07-27] MEDS: Albuterol/Ipratropium 3ml neb HHN SCH ×2 (01:45→06:46)
[2017-07-27 04:00] VITALS: BP 131/79
[2017-07-27 08:00] VITALS: BP 132/71
--- NOTE | 2017-07-27 08:06 | General Progress Note ---
Assessment/Plan Problem List: (1) Acute asthma exacerbation ICD Codes: J45.901 - Unspecified asthma with (acute) exacerbation SNOMED: 227809157 (2) Viral URI vs bronchitis (3) Acute respiratory failure with hypoxia ICD Codes: J96.01 - Acute respiratory failure with hypoxia SNOMED: 68031031, 691547362 (4) Morbid obesity ICD Codes: E66.01 - Morbid (severe) obesity due to excess calories SNOMED: 829070486, 59917632707334 (5) severe KAYLEE (6) NOEMÍ (acute kidney injury) ICD Codes: N17.9 - Acute kidney failure, unspecified SNOMED: 56393940 (7) NPH (normal pressure hydrocephalus) ICD Codes: G91.2 - (Idiopathic) normal pressure hydrocephalus SNOMED: 95170172 (8) Anxiety ICD Codes: F41.9 - Anxiety disorder, unspecified SNOMED: 46312000 (9) Bipolar disorder ICD Codes: F31.9 - Bipolar disorder, unspecified SNOMED: 72267174 (10) Depression ICD Codes: F32.9 - Major depressive disorder, single episode, unspecified SNOMED: 30416815 Status: stable Assessment/Plan Appreciate pulmonary, ID, psych, neuro rec's Cont abx per ID: zosyn, s/p azithro Cont steroids w/ slow taper per pulm--changed to prednisone 40mg daily Monitor ABG D/c theophylline Cont nebs ATC and PRN Cont O2 and wean off as tolerated Cont CPAP at [id number] qHS Cont home meds Trend CBC, BMP PT eval CM consulted for d/c to SNF ([facility] per pt preference vs guardian) vs ARU ([facility]) DVT Prophylaxis: SCD, HSQ Code Status: Full Hospital Classification Declaration: Based on this initial evaluation, and depending on the patient's clinical course, I anticipate that this patient will require hospitalization for 1-2 days for acute asthma exacerbation and close respiratory/hemodynamic monitoring. Disposition: Once the patient is stable to leave the hospital, I anticipate the patient will likely be discharged to the following environment: home with HH + CG vs SNF vs ARU Discussed with patient/family, nursing staff, SW/CM, pulm regarding clinical status, treatment course, and disposition planning. D/w pt's caregiver regarding mgmt and dispo Subjective Date patient seen: Jul 26, 2017 Time patient seen: 14:00 Constitutional: Reports: no symptoms HEENT: Reports: no symptoms Cardiovascular: Reports: no symptoms Respiratory: Reports: cough, shortness of breath, SOB with excertion Gastrointestinal/Abdominal: Reports: no symptoms Genitourinary: Reports: no symptoms Endocrine: Reports: no symptoms Hematologic/Lymphatic: Reports: no symptoms Allergies: Coded Allergies: No Known Allergies (Unverified , 07/16/17) Subjective No acute o/n events Cough, SOB improving. Pt wants to leave the hospital Awaiting SNF placement Objective Last 24 Hour Vital Signs Date Time Temp Pulse Resp B/P (MAP) Pulse Ox O2 Delivery O2 Flow Rate FiO2 07/27/17 06:57 82 20 98 Nasal Cannula 2.0 28 07/27/17 06:57 28 07/27/17 06:49 80 20 95 Nasal Cannula 2.0 28 07/27/17 06:48 Nasal Cannula 2.0 28 07/27/17 06:47 95 Nasal Cannula 2.0 28 07/27/17 04:00 97.2 73 20 131/79 97 07/27/17 04:00 68 07/27/17 02:05 73 22 97 Nasal Cannula 2.0 28 07/27/17 01:59 28 07/27/17 01:58 71 22 97 Nasal Cannula 2.0 28 07/27/17 00:00 97.5 69 22 134/74 95 07/27/17 00:00 67 07/26/17 20:00 73 07/26/17 20:00 97.0 81 20 121/77 93 07/26/17 19:49 70 20 94 Nasal Cannula 2.0 28 07/26/17 19:40 28 07/26/17 19:36 70 20 94 Nasal Cannula 2.0 28 07/26/17 19:35 Nasal Cannula 2.0 28 07/26/17 19:35 94 Nasal Cannula 2.0 28 07/26/17 17:53 70 20 94 Nasal Cannula 2.0 28 07/26/17 17:53 28 07/26/17 17:53 70 20 94 Nasal Cannula 2.0 28 07/26/17 16:00 86 07/26/17 16:00 97.4 70 20 140/81 94 Nasal Cannula 2.0 28 07/26/17 13:20 81 18 98 Nasal Cannula 2.0 28 07/26/17 13:20 88 20 98 Nasal Cannula 2.0 28 07/26/17 13:20 28 07/26/17 12:00 97.3 70 18 131/72 99 Nasal Cannula 2.0 07/26/17 12:00 68 Intake and Output 07/26/17 07/27/17 19:00 07:00 Intake Total 680 ml 240 ml Balance 680 ml 240 ml Intake Oral 680 ml 240 ml # Voids 2 2 # Bowel Movements 1 Objective General: alert, cooperative, no distress, appears stated age, obese Head: normocephalic, without obvious abnormality, atraumatic Eyes: conjunctivae/corneas clear. PERRL, EOM's intact Throat: lips, mucosa, and tongue normal. MMM Neck: supple, symmetrical, trachea midline, and no JVD Lungs: +wheezing b/l, decreased breath sounds b/l Heart: regular rate and rhythm, S1, S2 normal, no murmur, click, rub or gallop Abdomen: soft, non-tender, non-distended, bowel sounds normal; obese abd Extremities: extremities normal, atraumatic, no cyanosis, trace BLE edema Pulses: 2+ and symmetric Skin: skin color, texture, turgor normal; no rashes or lesions Neurologic: grossly normal, no focal deficits Ulysses Boyer M.D. Jul 27, 2017 08:06
[2017-07-27] MEDS: guaiFENesin ER 600mg tab ORAL SCH (09:54)
[2017-07-27] MEDS: DULoxetine 30mg cap ORAL SCH (09:54)
[2017-07-27] MEDS: ARIPiprazole 10mg tab ORAL SCH (09:54)
[2017-07-27] MEDS: Heparin 5000 units/ml inj SUBQ SCH (09:55)
[2017-07-27] MEDS: Advair 250/50 Inhaler - 14 dose INH SCH (10:21)
--- NOTE | 2017-07-27 10:49 | Pulmonology Progress Note ---
Assessment/Plan Problems: (1) Acute asthma exacerbation (2) severe KAYLEE (3) Morbid obesity (4) NPH (normal pressure hydrocephalus) (5) Viral URI vs bronchitis (6) Dyspnea Assessment/Plan -Optimize pulmonary hygiene/mobilize as tolerated -Titrate down FiO2 to keep Sao2 > 90% -Continue Pred 40 and slowly taper -Continue Advair and Spiriva -Continue Mucinex and PRN Robitussin -Encourage compliant with NIPPV @ night -F/U with NSG @ [facility] as planned -Monitor volumes -DVT Px: Hep SQ -Dispo planning to SNF, will F/U with me in 1 week or earlier PRN Subjective Allergies: Coded Allergies: No Known Allergies (Unverified , 07/16/17) Subjective AFVSS, O2 needs stable Continues to feel better Less cough, less SOB, no wheezing, mobilizing freely, no F/C Objective Last 24 Hour Vital Signs Date Time Temp Pulse Resp B/P (MAP) Pulse Ox O2 Delivery O2 Flow Rate FiO2 07/27/17 08:00 96.4 80 20 132/71 95 Nasal Cannula 2.0 07/27/17 06:57 82 20 98 Nasal Cannula 2.0 28 07/27/17 06:57 28 07/27/17 06:49 80 20 95 Nasal Cannula 2.0 28 07/27/17 06:48 Nasal Cannula 2.0 28 07/27/17 06:47 95 Nasal Cannula 2.0 28 07/27/17 04:00 97.2 73 20 131/79 97 07/27/17 04:00 68 07/27/17 02:05 73 22 97 Nasal Cannula 2.0 28 07/27/17 01:59 28 07/27/17 01:58 71 22 97 Nasal Cannula 2.0 28 07/27/17 00:00 97.5 69 22 134/74 95 07/27/17 00:00 67 07/26/17 20:00 73 07/26/17 20:00 97.0 81 20 121/77 93 07/26/17 19:49 70 20 94 Nasal Cannula 2.0 28 07/26/17 19:40 28 07/26/17 19:36 70 20 94 Nasal Cannula 2.0 28 07/26/17 19:35 Nasal Cannula 2.0 28 07/26/17 19:35 94 Nasal Cannula 2.0 07/26/17 17:53 70 20 94 Nasal Cannula 2.0 28 07/26/17 17:53 28 07/26/17 17:53 70 20 94 Nasal Cannula 2.0 07/26/17 16:00 86 07/26/17 16:00 97.4 70 20 140/81 94 Nasal Cannula 2.0 28 07/26/17 13:20 81 18 98 Nasal Cannula 2.0 28 07/26/17 13:20 88 20 98 Nasal Cannula 2.0 28 07/26/17 13:20 28 07/26/17 12:00 97.3 70 18 131/72 99 Nasal Cannula 2.0 07/26/17 12:00 68 Intake and Output 07/26/17 07/27/17 19:00 07:00 Intake Total 680 ml 240 ml Balance 680 ml 240 ml Intake Oral 680 ml 240 ml # Voids 2 2 # Bowel Movements 1 General Appearance: WD/WN, no acute distress, other - obese male HEENT: normocephalic, atraumatic, mucous membranes moist, other - MP 4 Respiratory/Chest: chest wall non-tender, lungs clear, normal breath sounds, no respiratory distress Cardiovascular: normal peripheral pulses, normal rate, regular rhythm Abdomen: normal bowel sounds, soft, non tender, no organomegaly, non distended Extremities: no cyanosis, no clubbing, no edema Current Medications Medications (Trade) Dose Ordered Sig/Hi Route PRN Reason Start Time Stop Time Status Last Admin Dose Admin Albuterol/ Ipratropium (Albuterol/ Ipratropium) 3 ml Q4H PRN HHN Shortness of Breath 07/23/17 18:00 07/28/17 17:59 07/26/17 17:52 Albuterol/ Ipratropium (Albuterol/ Ipratropium) 3 ml Q6HRT HHN 07/26/17 07:00 07/31/17 06:59 07/27/17 06:46 Alprazolam (Xanax) 1 mg BIDPRN PRN ORAL For Anxiety 07/20/17 18:00 07/27/17 17:59 07/26/17 00:38 Aripiprazole (Abilify) 10 mg DAILY ORAL 07/21/17 09:00 08/15/17 08:59 07/27/17 09:54 Dextrose (Dextrose 50%) STAT PRN IV Hypoglycemia 07/20/17 14:30 08/19/17 14:29 Duloxetine HCl (Cymbalta) 60 mg DAILY ORAL 07/21/17 09:00 08/15/17 08:59 07/27/17 09:54 Guaifenesin (Mucinex ER) 600 mg TWICE A DAY ORAL 07/23/17 18:00 08/22/17 17:59 07/27/17 09:54 Guaifenesin (Robitussin) 100 mg Q4H PRN ORAL For Cough 07/23/17 18:00 08/22/17 17:59 07/25/17 08:17 Heparin Sodium (Porcine) (Heparin 5000 units/ml) 5,000 units EVERY 12 HOURS SUBQ 07/20/17 21:00 08/15/17 08:59 07/27/17 09:55 Lamotrigine (LaMICtal) 100 mg Q12HR ORAL 07/20/17 21:00 08/17/17 20:59 07/27/17 09:54 Nitroglycerin (Ntg) 0.4 mg Q5M X 3 DOSES PRN SL Prn Chest Pain 07/20/17 13:30 08/15/17 07:59 Ondansetron HCl (Zofran) 4 mg Q6H PRN IVP Nausea & Vomiting 07/20/17 14:30 08/15/17 08:29 Prednisone (predniSONE) 40 mg DAILY ORAL 07/26/17 09:00 08/25/17 08:59 07/27/17 09:53 Promethazine HCl/ Codeine (Phenergan with Codeine) 5 ml Q6H PRN ORAL cough 07/20/17 14:30 08/17/17 08:29 07/20/17 15:34 Salmeterol Xinafoate/ Fluticasone (Advair 250/50 Diskus) 1 puffs BIDRT INH 07/22/17 11:30 08/21/17 11:29 07/27/17 10:21 Tiotropium Orestes (Spiriva Inhaler) 1 puff DAILY INH 07/22/17 12:00 08/21/17 11:59 07/27/17 09:00 TOMASA SOUZA M.D. Jul 27, 2017 10:49
[2017-07-27] MEDS ORDERED: NS 500ML ONE (11:19)
--- NOTE | 2017-07-27 13:15 | Discharge Summary ---
Discharge Summary Hospital Course Date of Admission Jul 16, 2017 at 04:04 Date of Discharge Jul 27, 2017 at 11:20 Admitting Diagnosis RESPIRATORY DISTRESS HPI 67 year old male with hx of asthma, brain surgery, morbid obesity bed bound with recent hospitalization at [facility] presented to ER with complaints of shortness of breath. No reports of fever or chills. Pt has productive cough. His cxr was negative in ER. He is admitted for exacerbation of asthma. Consultations Pulmonology, Infectious disease, Psychiatry Hospital Course Pt was admitted and seen by pulmonology. He was continued on steroids and IV antibiotics for acute asthma exacerbation 2/2 pneumonia. Pt with persistent symptoms that slowly improved. Steroids slowly tapered off per pulmonology. He was encouraged to use home CPAP. He completed course of antibiotics while in hospital. He was seen by PT/OT who recommended SNF which is where he was ultimately discharged to. Discharge physical exam: General: alert, cooperative, no distress, appears stated age Head: normocephalic, without obvious abnormality, atraumatic Eyes: conjunctivae/corneas clear. PERRL, EOM's intact Throat: lips, mucosa, and tongue normal. MMM Neck: supple, symmetrical, trachea midline, and no JVD Lungs: +mild wheezing and decreased breath sounds b/l Heart: regular rate and rhythm, S1, S2 normal, no murmur, click, rub or gallop Abdomen: soft, non-tender, non-distended, bowel sounds normal Extremities: extremities normal, atraumatic, no cyanosis or edema Pulses: 2+ and symmetric Skin: skin color, texture, turgor normal; no rashes or lesions Neurologic: grossly normal, no focal deficits Discharge diagnoses: (1) Acute asthma exacerbation ICD Codes: J45.901 - Unspecified asthma with (acute) exacerbation SNOMED: 419976238 (2) Viral URI vs bronchitis (3) Acute respiratory failure with hypoxia ICD Codes: J96.01 - Acute respiratory failure with hypoxia SNOMED: 73787943, 468042115 (4) Morbid obesity ICD Codes: E66.01 - Morbid (severe) obesity due to excess calories SNOMED: 002421733, 93823470380478 (5) severe KAYLEE (6) NOEMÍ (acute kidney injury) ICD Codes: N17.9 - Acute kidney failure, unspecified SNOMED: 02677417 (7) NPH (normal pressure hydrocephalus) ICD Codes: G91.2 - (Idiopathic) normal pressure hydrocephalus SNOMED: 42563188 (8) Anxiety ICD Codes: F41.9 - Anxiety disorder, unspecified SNOMED: 05724398 (9) Bipolar disorder ICD Codes: F31.9 - Bipolar disorder, unspecified SNOMED: 96482371 (10) Depression ICD Codes: F32.9 - Major depressive disorder, single episode, unspecified SNOMED: 28747073 Discharge Medications New Medications: Alprazolam* (Xanax*) 0.5 Mg Tablet 1 MG ORAL BIDPRN PRN, #45 TAB Codeine/Promethazine Hcl* (Promethazine-Codeine Syrup*) 118 Ml Syrup 5 ML ORAL Q6H PRN for 30 Days, ML Fluticasone/Salmeterol (Advair 250-50 Diskus) 1 Each Blst.w.dev 1 PUFFS INH BIDRT for 30 Days, #1 TUBE Guaifenesin (Mucinex) 600 Mg Tab.er.12h 600 MG ORAL TWICE A DAY for 30 Days, TAB Guaifenesin* (Guaifenesin) 100 Mg/5 Ml Liquid 100 MG ORAL Q4H PRN for 30 Days, ML Ipratropium/Albuterol Sulfate (DuoNeb 0.5-3(2.5)mg/3ml) 3 Ml Ampul.neb 3 ML HHN Q6HRT for 30 Days, EA Ipratropium/Albuterol Sulfate (DuoNeb 0.5-3(2.5)mg/3ml) 3 Ml Ampul.neb 3 ML HHN Q4H PRN for 30 Days, EA Prednisone* (Prednisone*) 10 Mg Tablet 40 MG ORAL DAILY for 8 Days, #22 TAB 0 Refills 40mg daily x 2 days, 30mg daily x 2 days, 20mg daily x 2 days, 10mg daily x 2 days Tiotropium Carmichael (Spiriva) 18 Mcg Cap.w.dev 1 PUFF INH DAILY for 30 Days, #1 TUBE Continued Medications: Aripiprazole* (Abilify*) 10 Mg Tablet 10 MG ORAL DAILY, TAB Duloxetine Hcl* (Cymbalta*) 60 Mg Capsule.dr 60 MG ORAL DAILY, CAP Lamotrigine* (Lamictal*) 100 Mg Tablet 100 MG ORAL BID, TAB 0 Refills Montelukast Sodium* (Singulair*) 10 Mg Tablet 10 MG ORAL DAILY, TAB Risperidone* (Risperdal*) 0.5 Mg Tablet 0.5 MG ORAL BEDTIME, TAB 0 Refills Discontinued Medications: Albuterol Sulfate* (Albuterol Sulfate Hhn*) 2.5 Mg/3 Ml Vial.neb 3 ML INH THREE TIMES A DAY PRN for WHEEZING, EA 0 Refills Alprazolam* (Xanax*) 1 Mg Tablet 1 MG ORAL BID, TAB Discharge Condition Upon Discharge: stable Discharge Disposition Patient was discharged to SNF/Subacute Facility(03) Discharge Diagnoses: Ulysses Boyer M.D. Jul 27, 2017 13:14
--- NOTE | 2017-07-27 21:15 | Progress Note ---
DATE: 07/27/2017 SUBJECTIVE: The patient is calmer and cooperative. Waste Reduction Coordinator at bedside. No behavior issues. The patient stated that he has episodes of anxiety, manageable. MENTAL STATUS EXAMINATION: The patient is alert and oriented times self, place, and situation. Mood is neutral. The patient is hard of hearing. Mood is neutral. Affect is flat. Thought process is concrete. Thought content, no suicidal or homicidal ideation. ASSESSMENT: Anxiety disorder. PLAN: 1. We will continue the current medication. 2. Provide the patient with supportive therapy and reality orientation. We will continue to follow and readjust the medications. Rina Damon M.D. DR: JORJE JOB#: [id number] CC:
--- NOTE | 2017-07-29 01:30 | Consultation ---
DATE OF CONSULTATION: 07/27/2017 HEMATOLOGY/ONCOLOGY CONSULTATION CONSULTING PHYSICIAN: Raúl Green M.D. REQUESTING PHYSICIAN: Cuate Walker M.D. REASON FOR CONSULTATION: Evaluation of leukocytosis and medical problems. IDENTIFYING DATA: Dear Dr. Walker and Dr. Arora: The patient is a pleasant 67-year-old male, recently admitted with history of asthma, brain surgery, morbid obesity, recent hospitalization at [facility], at this time presents to ER with shortness of breath, admitted for exacerbation of asthma. He is on steroids. He has been seen by multiple services thus far, potentially to be discharged today. Leukocytosis secondary to steroids most likely. Chest x-ray, possible pneumonia, bilateral upper respiratory infection. Rapid influenza test negative. Hematology Service was consulted given his leukocytosis as well as medical problems. PAST MEDICAL HISTORY: KAYLEE, morbid obesity and NPH. SURGICAL HISTORY: None noted. ALLERGIES: No known drug allergies. MEDICATIONS: Alprazolam, aripiprazole, and Risperdal. FAMILY HISTORY: Noncontributory. REVIEW OF SYSTEMS: CONSTITUTIONAL: No fever, chills, or night sweats. SKIN: No rashes, bumps, or itching. HEENT: No headache, hearing or vision changes. BREASTS: No lumps, pain, or discharge. PULMONARY: No cough, sputum, or shortness of breath. GASTROINTESTINAL: No nausea, vomiting, or diarrhea. GENITOURINARY: No dysuria, frequency, or urgency. MUSCULOSKELETAL: No joint swelling, muscle pain, or trauma. PHYSICAL EXAMINATION: GENERAL: No acute distress. VITAL SIGNS: Reviewed. PULMONARY: Decreased breath sounds. CARDIOVASCULAR: Regular rate. No S3 or S4. ABDOMEN: Soft, nontender, and nondistended. EXTREMITIES: A 1+ edema. LABORATORY DATA: WBC 14.1 and platelet count of 247,000. BUN of 24 and creatinine of 1.3. IMPRESSION AND RECOMMENDATION: 1. Leukocytosis secondary to steroid use. Continue to closely monitor. Less likely infection related. 2. Asthma exacerbation, currently improving with breathing. The patient will be discharged today. 3. Possible pneumonia. Sputum culture is negative. He has been seen by gastrointestinal team, Dr. Gaxiola. 4. Bilateral upper respiratory infection. Rapid influenza test negative. 5. . I appreciate the consultation. Raúl Green M.D. DR: NETTIE JOB#: [id number] CC:
--- NOTE | 2017-08-02 08:30 | Discharge Summary ---
Discharge Summary Hospital Course Date of Admission Jul 16, 2017 at 04:04 Date of Discharge Jul 27, 2017 at 11:20 Admitting Diagnosis RESPIRATORY DISTRESS HPI Giancarlo Ray is a 67 year old male who was admitted on Jul 16, 2017 at 04:04 for Respiratory Distress Hospital Course 69y/o male with pmh of NPH, severe KAYLEE, morbid obesity, asthma who presents with SOB. Pt recently hospitalized at [facility] for worsening LE weakness. He was evaluated by neurology. MRI brain demonstrated ventriculomegaly which appeared~similar compared to previous examination. 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 MRIs of L,T,C spine were negative for any cord compression. LP was done on 07/04/17 and it revealed an opening pressure of 290mm H2O. Post LP, the pt's condition improved and neurosurgery was consulted and the decision was taken to insert a LOGISTICS CLERK shunt in a few weeks. Following discharge, pt states he did well initially but then developed recurrent SOB w/ cough productive of sputum. He has been admitted for asthma exacerbation. He has been receiving IV steroids, antibiotics and nebulizers with some improvement. He continued to have respiratory distress , he was place on BIPAP for pulmonary support. titrate FiO2 to keep sat above 92% ABG was better after BiPAP. Patient likely have KAYLEE and need BiPAP at night and sleep study as outpatient. He was given pulmonary toilet: HHN and CPT and given trial of theophylline. Influenza screen test negative. Sputum culture showed normal bryanna. He received 7 days of azithromycin and 3 days of Zosyn, he was monitored off antibiotic treatment. IV steroids were tapered. He was given Advair and Spiriva. Theophylline was discontinued. Persistent leukocytosis was secondary to steroid use. He was eventually tapered off BIPAP and IV steroids slow taper., He has Bipolar and anxiety disorder. He was given abilify 30mg, Lamictal and Cymbalta. Risperdal was discontinued. He was eventually discharge to SNF. Assessment/Plan Problem List: (1) Acute asthma exacerbation ICD Codes: J45.901 - Unspecified asthma with (acute) exacerbation SNOMED: 124467000 (2) Viral URI vs bronchitis (3) Acute respiratory failure with hypoxia ICD Codes: J96.01 - Acute respiratory failure with hypoxia SNOMED: 64928960, 398519120 (4) Morbid obesity ICD Codes: E66.01 - Morbid (severe) obesity due to excess calories SNOMED: 244282747, 87158013457276 (5) severe KAYLEE (6) NOEMÍ (acute kidney injury) ICD Codes: N17.9 - Acute kidney failure, unspecified SNOMED: 57169540 (7) NPH (normal pressure hydrocephalus) ICD Codes: G91.2 - (Idiopathic) normal pressure hydrocephalus SNOMED: 21564609 (8) Anxiety ICD Codes: F41.9 - Anxiety disorder, unspecified SNOMED: 24151147 (9) Bipolar disorder ICD Codes: F31.9 - Bipolar disorder, unspecified SNOMED: 43976064 (10) Depression ICD Codes: F32.9 - Major depressive disorder, single episode, unspecified SNOMED: 28553422 Status: stable I have been assigned to complete a DC summary on this account, I was not involved with the patient management.--Carlos Salinas NP Discharge Discharge Disposition Patient was discharged to SNF/Subacute Facility(03) Discharge Diagnoses: Ruma Salinas NP Aug 02, 2017 08:30
== END 2017-07-27 11:20 | DRG 189 ==
LOC: EDBD 03:43 → EMR 03:49 → 2E 04:04 → EDBEDREQ 05:45 → ENRESERV 06:00 → 3E 07-18 15:26 → ICU 07-20 07:00 → 2E 07-20 13:09
DX: J96.01 Acute respiratory failure with hypoxia (principal); N17.9 Acute kidney failure, unspecified; J18.9 Pneumonia, unspecified organism; G91.2 (Idiopathic) normal pressure hydrocephalus; J44.0 Chronic obstructive pulmonary disease with (acute) lower respiratory infection; J44.1 Chronic obstructive pulmonary disease with (acute) exacerbation; J45.901 Unspecified asthma with (acute) exacerbation; E66.01 Morbid (severe) obesity due to excess calories; Z68.38 Body mass index [BMI] 38.0-38.9, adult; Z98.890 Other specified postprocedural states; F31.9 Bipolar disorder, unspecified; F32.9 Major depressive disorder, single episode, unspecified; F41.9 Anxiety disorder, unspecified; G47.33 Obstructive sleep apnea (adult) (pediatric); D72.829 Elevated white blood cell count, unspecified; T38.0X5A Adverse effect of glucocorticoids and synthetic analogues, initial encounter; Y92.230 Patient room in hospital as the place of occurrence of the external cause; B33.8 Other specified viral diseases
CPT/HCPCS: 36415; 36600; 71010; 80048; 80053; 81003; 82550; 82553; 82803; 82962; 83605; 83690; 83735; 83880; 84100; 84484; 85007; 85025; 85651; 86710; 87040; 87070; 87081; 87205; 93005; 94640; 94660; 94664; 94760; 99285; J7620